=== PATIENT | female | born 1955 | race Caucasian/White ===

== ENCOUNTER 2016-04-01 10:46 | Inpatient (IN) | payer OTHER ==
[~2016-04-01] VITALS: Ht 157.5 cm; Wt 80.0 kg
[~2016-04-01 10:46] MED LIST: DOCU100C31 PO; FOLI1TAB7 PO; METH2.5T PO; MOME220A3 INH; MORP30TA23 PO; MUPIOIN4 NAE; OXYC-106 PO; PANT40TA PO; PRED-301 PO; VENL150T33 PO; VENL75CA PO
--- NOTE | 2016-04-01 11:16 | EMERGENCY ROOM VISIT NOTE ---
History Report prepared by Dixon: Gail Carey Under the Supervision of: Dr. Timur Agustin M.D. First contact with patient: 11:01 Chief Complaint: CHEST PAIN Stated Complaint: BREAST PAIN History of Present Illness The patient is a 60 year old female who presents to the Emergency Room with complaints of intermittent left sided chest pain that began two days ago. She currently rates her discomfort as an 8/10 in severity. The patient states that she notices increased pain with deep breathing. She notes an intermittent cough and states that her pain radiates to her back. The patient denies any fever, chills, shortness of breath, nausea, vomiting, abdominal pain, or pain or swelling to her legs. She denies any recent injury or fall. The patient states that she has a history of rheumatoid arthritis and states that she recently had two knee surgeries. She states that due to complications she had a babita and spacer placed in her right knee at the beginning of February. The patient denies any personal or family history of blood clots. She denies any history of heart problems or diabetes. The patient notes a history of shingles several years ago. She states that she quit smoking 27 years ago. The patient notes that she currently is taking Vancomycin in her PICC line. She additionally notes a rash. Source of History: patient Onset: two days ago Position: chest (left) Symptom Intensity: 8/10 Timing: intermittent Modifying Factors (Worsening): breathing Associated Symptoms: + cough, + rash, No SOB, No abdominal pain, No chills, No fevers, No nausea, No vomiting Review of Systems See HPI for pertinent positives & negatives. A total of 10 systems reviewed and were otherwise negative. 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 Nurse's notes were reviewed and I agree with. Family History FH: cancer SISTER (ovarian [place] age 49) Heart disease FATHER ( [place] age 67) Social History Smoking Status: Former Smoker Drug Use: none Marital Status: Housing Status: lives with family Occupation Status: disabled Current/Historical Medications Scheduled Amoxicillin & Pot Clavulanate (Augmentin 875-125 mg), 1 TAB PO BID Aspirin (Aspirin Ec), 81 MG PO DAILY Folic Acid (Folvite), 1 MG PO DAILY Gabapentin (Gabapentin), 200 MG PO BID Mometasone Furoate (Asmanex 14 Metered Doses), 2 PUFF INH BID Morphine Sulfate (Ms Contin), 15 MG PO Q12 Multivitamin (Multivitamin), 1 TAB PO DAILY Pantoprazole (Protonix), 40 MG PO DAILY Polyethylene Glycol 3350 (Miralax), 17 GM PO DAILY Potassium Chloride (Klor-Con M20), 20 MEQ PO DAILY Prednisone (Prednisone), 5 MG PO DIRECTED Venlafaxine Hcl (Venlafaxine Hcl Er), 150 MG PO QAM Venlafaxine Hcl (Effexor Xr), 1 CAP PO QAM Scheduled PRN Acetaminophen (Tylenol), 650 MG PO Q6 PRN for Pain Hydroxyzine HCl (Hydroxyzine HCl), 10 MG PO QID PRN for Itching Oxycodone Ir (Roxicodone Ir), 5 MG PO Q4H PRN for Severe Pain Oxycodone/Acetaminophen 10MG/325MG (Percocet 10MG/325MG), 1 TAB PO BID PRN for Pain Allergies Coded Allergies: Sulfa Antibiotics (Verified Allergy, Intermediate, USED CELEBREX IN PAST, 04/01/16) Adhesives (Verified Allergy, Mild, RASH, 04/01/16) Daptomycin (Verified Allergy, Unknown, RASH, 04/01/16) Heparin (Verified Allergy, Unknown, RASH, 04/01/16) PT VERBALIZED Note: Heparin platelet antibody (+) from 08/08/14 thought the reflex SHAISTA was (-) from 08/08/14. aj Physical Exam Vital Signs Date Time Temp Pulse Resp B/P Pulse Ox O2 Delivery O2 Flow Rate FiO2 04/01/16 13:44 103 04/01/16 13:34 105 24 132/75 99 04/01/16 12:46 97 20 98 04/01/16 12:43 104/75 04/01/16 12:31 99 22 98 04/01/16 12:28 126/88 04/01/16 12:16 102 24 98 04/01/16 12:13 129/77 04/01/16 12:01 102 23 96 04/01/16 11:58 115/74 04/01/16 11:46 105 24 97 04/01/16 11:43 107/63 04/01/16 11:41 115/67 04/01/16 11:31 109 22 04/01/16 11:16 111 13 04/01/16 11:10 94 Room Air 04/01/16 11:06 36.6 112 20 107/75 94 Room Air 04/01/16 11:01 94 Room Air 04/01/16 11:01 112 19 94 04/01/16 10:59 111 04/01/16 10:55 107/75 Physical Exam General: Well developed well nourished, non-ill appearing, talkative middle aged female in no acute distress, breathing comfortably on room air. Normal speech HEENT: Normal cephalic atraumatic. Pupils are equal round and reactive to light. Extraocular movements are intact. Oropharynx is pink with moist mucous membranes. No swelling of the mouth lips or tongue. Neck: Supple with a midline trachea. No meningeal signs or stiffness, no JVD or bruits. No Stridor. Chest: Clear to auscultation bilaterally. No wheezes or rhonchi. No increased work of breathing. Heart: regular rate and rhythm. Abdomen: Soft nontender, nondistended without rebound guarding or rigidity. Extremities: Right leg is in an immobilizer, no distal swelling. No cyanosis clubbing or edema. No calf tenderness or assymetry Spine/Back. Non tender to palpation. No CVA tenderness Skin: Scabs to the anterior chest and healed lesion on posterior chest, possibly consistent with shingles. Good turgor. Neurologic exam: Cranial nerves two through 12 are intact. Motor and sensation are intact and symmetrical throughout. Medical Decision & Procedures ER Provider Diagnostic Interpretation: X ray results as stated below per my interpretation and radiologist interpretation. Other radiology results as stated below per my review and radiologist interpretation: CHEST ONE VIEW PORTABLE CLINICAL HISTORY: Chest pain. COMPARISON STUDY: Chest radiograph June 28, 2015. FINDINGS: A right PICC is in place. Lung volumes are diminished. There is no pneumothorax or pleural effusion. Cardiomediastinal silhouette is stable. Asymmetric airspace opacities and interstitial thickening within the right lung are noted. There is mild left basilar opacity. Right lung aeration has markedly improved since exam of June 28, 2015. IMPRESSION: 1. Scattered right lung airspace opacities and left basilar opacity. The findings could reflect pneumonia or atelectasis. Radiographic follow-up is recommended. 2. Diminished lung volumes. Electronically signed by: Saravanan Ny M.D. 04/01/2016 12:03 PM Dictated Date/Time: 04/01/2016 12:01 PM CHEST CTA for PULMONARY ARTERIES CT DOSE: 265.53 mGy.cm HISTORY: Atypical chest pain. TECHNIQUE: Multiaxial CT images of the chest were performed following the intravenous administration of contrast to evaluate the pulmonary arteries. Maximal intensity projection images were also obtained. COMPARISON STUDY: Chest CTA 06/26/2015. FINDINGS: Normal caliber thoracic aorta with no evidence for dissection. The heart is normal in size. Trace left pleural effusion. No filling defects within the pulmonary arteries to suggest pulmonary embolus. Slightly nodular contour to the liver surface suggestive of cirrhosis. Marked splenomegaly, unchanged. Multiple borderline enlarged mediastinal and right hilar lymph nodes. These have improved in the interval. Mildly enlarged anterior diaphragmatic lymph nodes are not significant changed. Stable subcentimeter axillary lymph nodes. Old right-sided rib fractures. No pneumothorax. A few irregular patchy and nodular airspace opacities within the right upper lobe and peripheral base of the right lower lobe. There is also focal consolidation within the lingula with associated air bronchogram. A few additional smaller nodular airspace opacity within the medial aspect of the lingula. The central airways are patent. Mild bronchiectasis. IMPRESSION: 1. No evidence for pulmonary embolus. 2. Scattered irregular and nodular airspace opacities seen within the right upper lobe, right lower lobe, and lingula. This favors a multifocal pneumonia. One to 2 month chest x-ray follow up is recommended to ensure resolution. 3. Trace left pleural effusion. 4. Mild bronchiectasis. 5. Severe splenomegaly, unchanged. 6. Mildly enlarged anterior diaphragmatic lymph nodes are stable. Borderline enlarged mediastinal and right hilar lymph nodes are slightly improved. Electronically signed by: Satinder Fishman M.D. 04/01/2016 2:01 PM Dictated Date/Time: 04/01/2016 1:39 PM Laboratory Results 04/01/16 11:30 Red Blood Count 4.13, Mean Corpuscular Volume 83.3, Mean Corpuscular Hemoglobin 25.7, Mean Corpuscular Hemoglobin Concent 30.8, Mean Platelet Volume 10.2, Neutrophils (%) (Auto) 70.6, Lymphocytes (%) (Auto) 15.2, Monocytes (%) (Auto) 13.0, Eosinophils (%) (Auto) 0.6, Basophils (%) (Auto) 0.2, Neutrophils # (Auto ) 3.26, Lymphocytes # (Auto) 0.70, Monocytes # (Auto) 0.60, Eosinophils # (Auto ) 0.03, Basophils # (Auto) 0.01 04/01/16 11:30 Test 04/01/16 11:30 04/01/16 11:46 White Blood Count 4.62 K/uL (4.8-10.8) Red Blood Count 4.13 M/uL (4.2-5.4) Hemoglobin 10.6 g/dL (12.0-16.0) Hematocrit 34.4 % (37-47) Mean Corpuscular Volume 83.3 fL (80-100) Mean Corpuscular Hemoglobin 25.7 pg (25-34) Mean Corpuscular Hemoglobin Concent 30.8 g/dl (32-36) Platelet Count 93 K/uL (130-400) Mean Platelet Volume 10.2 fL (7.4-10.4) Neutrophils (%) (Auto) 70.6 % Lymphocytes (%) (Auto) 15.2 % Monocytes (%) (Auto) 13.0 % Eosinophils (%) (Auto) 0.6 % Basophils (%) (Auto) 0.2 % Neutrophils # (Auto) 3.26 K/uL (1.4-6.5) Lymphocytes # (Auto) 0.70 K/uL (1.2-3.4) Monocytes # (Auto) 0.60 K/uL (0.11-0.59) Eosinophils # (Auto) 0.03 K/uL (0-0.5) Basophils # (Auto) 0.01 K/uL (0-0.2) RDW Standard Deviation 54.5 fL (36.4-46.3) RDW Coefficient of Variation 17.8 % (11.5-14.5) Immature Granulocyte % (Auto) 0.4 % Immature Granulocyte # (Auto) 0.02 K/uL (0.00-0.02) Prothrombin Time 12.5 SECONDS (9.0-12.0) Prothromb Time International Ratio 1.2 (0.9-1.1) Activated Partial Thromboplast Time 31.1 SECONDS (21.0-31.0) Partial Thromboplastin Ratio 1.2 Anion Gap 9.0 mmol/L (3-11) Est Creatinine Clear Calc Drug Dose 67.2 ml/min Estimated GFR () 85.1 Estimated GFR (Non- 73.4 BUN/Creatinine Ratio 17.7 (10-20) Calcium Level 8.1 mg/dl (8.5-10.1) Total Bilirubin 0.6 mg/dl (0.2-1) Direct Bilirubin 0.2 mg/dl (0-0.2) Aspartate Amino Transf (AST/SGOT) 17 U/L (15-37) Alanine Aminotransferase (ALT/SGPT) 22 U/L (12-78) Alkaline Phosphatase 147 U/L (45-117) Total Creatine Kinase 33 U/L (26-192) Creatine Kinase MB 0.6 ng/ml (0.5-3.6) Creatine Kinase MB Ratio 1.8 (0-3.0) Total Protein 7.7 gm/dl (6.4-8.2) Albumin 2.8 gm/dl (3.4-5.0) Lipase 176 U/L (73-393) Bedside D-Dimer > 450 ng/mlFEU (0-450) Bedside Troponin I 0.000 ng/ml (0-0.045) BR-Niz-C-Type Natriuretic Peptide 234 pg/ml (0-900) Laboratory studies as stated above per my review. ECG Indication: chest pain Rate (beats per minute): 107 Rhythm: sinus tachycardia Findings: no acute ischemic change, no ectopy Comparison ECG Date: 06/26/15 Change: no significant change ED Course 1103: Past medical records reviewed. The patient was evaluated in room C11B, and a complete history and physical examination were performed. 1238: I reevaluated the patient and she is resting comfortably. I informed her that she needs to have a CT scan. She agreed to it. 1416: I reevaluated the patient and she is resting comfortably on nasal cannula oxygen. I discussed the exam findings with her and I discussed the treatment plan. She verbalized complete understanding and agreement. She will be evaluated for further treatment. 1429: I discussed the patients case with Rubén Duarte. He is going to evaluate the patient for further treatment. 1435: Ordered Levofloxacin 750 mg IV. Medical Decision Differentials include, but are not limited to; acute coronary syndrome, arrhythmia, PE, pneumonia, pneumothorax, CHF, shingles. This patient comes in described above. She comes in after a cough for several days as well as having chest pain more so on her left side. She has been picking at her chest and has a few scabs anteriorly which could be shingles. Posteriorly, she has healed area. She has had shingles there before. She denies any fever but has a mild temperature up to 99. She tells me that her oxygen saturation was low at 92 and the snf and was placed on oxygen. She has an immobilized left lower extremity which is is healing with an antibiotic spacer after having an infection postop. She's been on IV vancomycin and a PICC line in the right arm. She does have underlying rheumatoid arthritis as well. IV access established with established and IV in her left arm blood cultures were obtained as well as multiple blood testing. EKG does not suggest acute coronary syndrome or arrhythmia. Chest x-rays shows up possible patchy infiltrates. D-dimer was elevated. She's had no significant electrode or metabolic abnormalities. I did a chest CT to rule out PE. She has no evidence of PE, she does have some patchy infiltrates and several lobes possible pneumonia in light of this I do think needs IV antibiotics for possible pneumonia. She is given Levaquin 750 mg IV. Axel our ED Pharmacist, has checked and she did receive vancomycin and a trough level was high severity she does not need further flank today. Dr. Aguilar was consulted and see the patient ER for further treatment and evaluation. Consults Time Called: 1415 Consulting Physician: Rubén Duarte Returned Call: 1420 I discussed the patients case with Rubén Duarte. He is going to evaluate the patient for further treatment. Impression Primary Impression: Left sided chest pain Additional Impression: Multifocal pneumonia Scribe Attestation The scribe's documentation has been prepared under my direction and personally reviewed by me in its entirety. I confirm that the note above accurately reflects all work, treatment, procedures, and medical decision making performed by me. Departure Information Dispostion Being Evaluated By Hospitalist Ramesh Del Cid M.D. (PCP) Problem Qualifiers
[2016-04-01] MEDS ORDERED: POLY335019 PO (11:21)
[2016-04-01] MEDS ORDERED: MCRK20 PO (11:30)
[2016-04-01] MEDS ORDERED: NRN100 PO (11:30)
[2016-04-01] MEDS ORDERED: ATR10 PO (11:30)
[2016-04-01] MEDS ORDERED: ASPI81TA28 PO (11:30)
[2016-04-01] MEDS ORDERED: ACET-1311 PO (11:30)
[2016-04-01] MEDS ORDERED: OXYC1TAB3 PO (11:30)
[2016-04-01] MEDS ORDERED: MULT-506 PO (11:30)
[2016-04-01] MEDS ORDERED: AMOX875T PO (11:30)
--- NOTE | 2016-04-01 12:04 | DIAGNOSTIC IMAGING REPORT ---
CHEST ONE VIEW PORTABLE CLINICAL HISTORY: Chest pain. COMPARISON STUDY: Chest radiograph June 28, 2015. FINDINGS: A right PICC is in place. Lung volumes are diminished. There is no pneumothorax or pleural effusion. Cardiomediastinal silhouette is stable. Asymmetric airspace opacities and interstitial thickening within the right lung are noted. There is mild left basilar opacity. Right lung aeration has markedly improved since exam of June 28, 2015. IMPRESSION: 1. Scattered right lung airspace opacities and left basilar opacity. The findings could reflect pneumonia or atelectasis. Radiographic follow-up is recommended. 2. Diminished lung volumes. Electronically signed by: Saravanan Ny M.D. 04/01/2016 12:03 PM Dictated Date/Time: 04/01/2016 12:01 PM
[2016-04-01 12:06] LABS: POINT OF CARE PRO-BNP 234 pg/ml (0-900)
[2016-04-01 12:20] LABS: INR 1.2 (0.9-1.1); PARTIAL THROMBOPLASTIN RATIO 1.2; PROTHROMBIN TIME (PATIENT) 12.5 SECONDS (9.0-12.0)
[2016-04-01 12:25] LABS: BUN/CREATININE RATIO 17.7 (10-20); CALCIUM 8.1 mg/dl (8.5-10.1); CREATININE 0.85 mg/dl (0.60-1.20)
[2016-04-01 12:31] LABS: CKMB/CK RATIO 1.8 (0-3.0)
[2016-04-01 12:40] LABS: BASO % 0.2 %; BASO ABS # 0.01 K/uL (0-0.2); COMPLETE YES; EOS % 0.6 %; HEMATOCRIT 34.4 % (37-47); IG% 0.4 %; LYMPH % 15.2 %; MEAN CELL VOLUME 83.3 fL (80-100); MEAN CORPUSCULAR HEMOGLOBIN 25.7 pg (25-34); MEAN CORPUSCULAR HGB CONC 30.8 g/dl (32-36); MEAN PLATELET VOLUME 10.2 fL (7.4-10.4); NEUT % 70.6 %; PLATELET COUNT 93 K/uL (130-400); RED BLOOD COUNT 4.13 M/uL (4.2-5.4); WHITE BLOOD COUNT 4.62 K/uL (4.8-10.8)
[2016-04-01] MEDS ORDERED: OPTIRAY 320 IV PRN (12:45)
--- NOTE | 2016-04-01 14:02 | DIAGNOSTIC IMAGING REPORT ---
CHEST CTA for PULMONARY ARTERIES CT DOSE: 265.53 mGy.cm HISTORY: Atypical chest pain. TECHNIQUE: Multiaxial CT images of the chest were performed following the intravenous administration of contrast to evaluate the pulmonary arteries. Maximal intensity projection images were also obtained. COMPARISON STUDY: Chest CTA 06/26/2015. FINDINGS: Normal caliber thoracic aorta with no evidence for dissection. The heart is normal in size. Trace left pleural effusion. No filling defects within the pulmonary arteries to suggest pulmonary embolus. Slightly nodular contour to the liver surface suggestive of cirrhosis. Marked splenomegaly, unchanged. Multiple borderline enlarged mediastinal and right hilar lymph nodes. These have improved in the interval. Mildly enlarged anterior diaphragmatic lymph nodes are not significant changed. Stable subcentimeter axillary lymph nodes. Old right-sided rib fractures. No pneumothorax. A few irregular patchy and nodular airspace opacities within the right upper lobe and peripheral base of the right lower lobe. There is also focal consolidation within the lingula with associated air bronchogram. A few additional smaller nodular airspace opacity within the medial aspect of the lingula. The central airways are patent. Mild bronchiectasis. IMPRESSION: 1. No evidence for pulmonary embolus. 2. Scattered irregular and nodular airspace opacities seen within the right upper lobe, right lower lobe, and lingula. This favors a multifocal pneumonia. One to 2 month chest x-ray follow up is recommended to ensure resolution. 3. Trace left pleural effusion. 4. Mild bronchiectasis. 5. Severe splenomegaly, unchanged. 6. Mildly enlarged anterior diaphragmatic lymph nodes are stable. Borderline enlarged mediastinal and right hilar lymph nodes are slightly improved. Electronically signed by: Satinder Fishman M.D. 04/01/2016 2:01 PM Dictated Date/Time: 04/01/2016 1:39 PM
[2016-04-01] MEDS ORDERED: LEVAQUIN 750MG / 150ML D5W IV STA (14:35)
[2016-04-01] MEDS ORDERED: ACETAMINOPHEN 325 MG TAB PO PRN (16:45)
[2016-04-01] MEDS ORDERED: ONDANSETRON INJ 2 MG/ML 2 ML VIAL IV PRN (16:45)
[2016-04-01] MEDS ORDERED: GUAIFENESIN SUGAR FREE 100 MG/5 ML UDC PO PRN (17:00)
[2016-04-01] MEDS ORDERED: hydrOXYzine HCL 10 MG TAB PO PRN (17:00)
[2016-04-01] MEDS ORDERED: OXYCODONE HCL IR 5 MG TAB (IMMEDIATE RELEASE) PO PRN (17:00)
[2016-04-01] MEDS ORDERED: PRVHFAIN INH (17:12)
--- NOTE | 2016-04-01 17:13 | History and Physical ---
History & Physical Date & Time of Service: Apr 01, 2016 at 16:57 Chief Complaint: Breast Pain Primary Care Physician: Ramesh Aburto M.D. History of Present Illness Source: patient, clinic records, hospital records, correction Patient seen and examined. 60 year old female with PMHx of Asthma, HIT, GERD/ Gomez's esophagus, H/O MRSA knee replacement infection currently on Vancomycin , RA on prednisone and other problems listed below presents to the ED complaining of left chest pain x 3 days. Patient reports that it started after taking coughing. She reports she has been coughing for 3-4 days with a green sputum production. She denies associated symptoms including fevers, chills, nasal congestion, SOB, nausea, vomiting, diarrhea, dysuria, calf pain and edema. Patient is currently at [facility] for rehab. She had a complicated RTKA history with MRSA infection requiring hardware removal and spacer placement. She is currently on Vancomycin and is followed by ID at [facility] [place]. Per patient the plan is to start Augmentin chronically in a few weeks. In the ED patient is mildly tachycardic, Ddimer is elevated. CTA chest is negative for PE but shows multifocal pneumonia. There is no leukocytosis. Pharmacy is consulted who suggested levaquin in addition to the patient's current vancomycin. Patient will be admitted for further workup and treatment. Past Medical/Surgical History Medical Problems: (1) Asthma Status: Chronic (2) Gomez's esophagus Status: Chronic (3) Depression Status: Chronic (4) Felty's syndrome Status: Chronic (5) History of heparin-induced thrombocytopenia Status: Chronic (6) Hx MRSA infection Status: Chronic (7) Rheumatoid arthritis Status: Chronic (8) Venous insufficiency Status: Chronic Surgical Problems: (1) H/O esophagogastroduodenoscopy Permanent Comment: 08/27/2009 mild schatzki's ring, dilated, small hiatal hernia , mild nodularity of mucosa in distal esophagus Status: Chronic (2) Hx of breast biopsy Status: Chronic (3) Hx of total knee replacement Status: Chronic (4) S/P appendectomy Status: Chronic (5) S/p thorascopic sugery Permanent Comment: Right video assisted thorascopic surgery, evacuation of empyema with decortication Status: Chronic (6) Sp placement antibiotic spacer in knee Status: Chronic Family History FH: cancer SISTER (ovarian [place] age 49) Heart disease FATHER ( [place] age 67) Social History Smoking Status: Former Smoker Alcohol Use: none Drug Use: none Marital Status: Housing status: correction Occupational Status: disabled Immunizations History of Influenza Vaccine: No History of Tetanus Vaccine?: Unknown History of Pneumococcal: Yes Pneumococcal Date: Nov 20, 2009 History of Hepatitis B Vaccine: No Multi-Drug Resistant Organisms History of MDRO: Yes Type of MDRO: MRSA Allergies Coded Allergies: Sulfa Antibiotics (Verified Allergy, Intermediate, USED CELEBREX IN PAST, 04/01/16) Adhesives (Verified Allergy, Mild, RASH, 04/01/16) Daptomycin (Verified Allergy, Unknown, RASH, 04/01/16) Heparin (Verified Allergy, Unknown, RASH, 04/01/16) PT VERBALIZED Note: Heparin platelet antibody (+) from 08/08/14 thought the reflex SHAISTA was (-) from 08/08/14. aj Home Medications Scheduled Amoxicillin & Pot Clavulanate (Augmentin 875-125 mg), 1 TAB PO BID Aspirin (Aspirin Ec), 81 MG PO DAILY Folic Acid (Folvite), 1 MG PO DAILY Gabapentin (Gabapentin), 200 MG PO BID Morphine Sulfate (Ms Contin), 15 MG PO Q12 Multivitamin (Multivitamin), 1 TAB PO DAILY Pantoprazole (Protonix), 40 MG PO DAILY Polyethylene Glycol 3350 (Miralax), 17 GM PO DAILY Potassium Chloride (Klor-Con M20), 20 MEQ PO DAILY Prednisone (Prednisone), 5 MG PO DIRECTED Venlafaxine Hcl (Venlafaxine Hcl Er), 150 MG PO QAM Venlafaxine Hcl (Effexor Xr), 1 CAP PO QAM Scheduled PRN Acetaminophen (Tylenol), 650 MG PO Q6 PRN for Pain Albuterol (Ventolin Hfa), 2 PUFFS INH Q4H PRN for SOB/Wheezing Hydroxyzine HCl (Hydroxyzine HCl), 10 MG PO QID PRN for Itching Oxycodone Ir (Roxicodone Ir), 5 MG PO Q4H PRN for Severe Pain Review of Systems See above for pertinent positives & negatives. A total of 10 systems reviewed and were otherwise negative. Physical Exam Vital Signs Date Time Temp Pulse Resp B/P Pulse Ox O2 Delivery O2 Flow Rate FiO2 04/01/16 15:36 99 30 97 2/17/17 15:28 123/83 04/01/16 15:21 99 23 97 04/01/16 15:18 111/85 04/01/16 15:06 100 24 98 04/01/16 14:51 99 24 98 04/01/16 14:43 91/70 04/01/16 14:36 99 23 98 04/01/16 14:31 112/60 04/01/16 14:28 112/60 04/01/16 14:21 98 22 04/01/16 14:13 115/75 04/01/16 14:06 104 16 04/01/16 13:58 110/69 04/01/16 13:51 105 26 98 04/01/16 13:44 103 04/01/16 13:43 116/73 04/01/16 13:36 104 25 98 04/01/16 13:34 105 24 132/75 99 04/01/16 13:34 132/75 04/01/16 12:51 98 21 98 04/01/16 12:46 97 20 98 04/01/16 12:43 104/75 04/01/16 12:31 99 22 98 04/01/16 12:28 126/88 04/01/16 12:16 102 24 98 04/01/16 12:13 129/77 04/01/16 12:01 102 23 96 04/01/16 11:58 115/74 04/01/16 11:46 105 24 97 04/01/16 11:43 107/63 04/01/16 11:41 115/67 04/01/16 11:31 109 22 04/01/16 11:16 111 13 04/01/16 11:10 94 Room Air 04/01/16 11:06 36.6 112 20 107/75 94 Room Air 04/01/16 11:01 94 Room Air 04/01/16 11:01 112 19 94 04/01/16 10:59 111 04/01/16 10:55 107/75 General Appearance: + pertinent finding (Pleasant WD/WN 60 year old female lying in bed in NAD ) Head: normocephalic, atraumatic Eyes: PERRL, EOMI, sclerae normal ENT: hearing grossly normal, pharynx normal Neck: supple, no JVD Respiratory/Chest: no respiratory distress, no accessory muscle use, + crackles (diffuse ), + pertinent finding (tenderness to palpation left chest) Cardiovascular: regular rate, rhythm, no edema, no gallop, no JVD, no murmur, normal peripheral pulses Abdomen/GI: normal bowel sounds, non tender, soft Back: normal inspection, no muscle spasm Extremities/Musculoskelatal: no calf tenderness, normal capillary refill, no pedal edema, + pertinent finding (brace intact to right leg, rheumatological changes noted to hands ) Neurologic/Psych: alert, oriented x 3, + pertinent finding (no focal deficits on gross exam ) Skin: normal color, warm/dry, no rash Lymphatic: no adenopathy Diagnostics Laboratory Results Results Past 24 Hours Test 04/01/16 11:14 04/01/16 11:30 04/01/16 11:46 Range/Units Creatine Kinase MB Ratio 1.8 0-3.0 White Blood Count 4.62 4.8-10.8 K/uL Red Blood Count 4.13 4.2-5.4 M/uL Hemoglobin 10.6 12.0-16.0 g/dL Hematocrit 34.4 37-47 % Mean Corpuscular Volume 83.3 80-100 fL Mean Corpuscular Hemoglobin 25.7 25-34 pg Mean Corpuscular Hemoglobin Concent 30.8 32-36 g/dl Platelet Count 93 130-400 K/uL Mean Platelet Volume 10.2 7.4-10.4 fL Neutrophils (%) (Auto) 70.6 % Lymphocytes (%) (Auto) 15.2 % Monocytes (%) (Auto) 13.0 % Eosinophils (%) (Auto) 0.6 % Basophils (%) (Auto) 0.2 % Neutrophils # (Auto) 3.26 1.4-6.5 K/uL Lymphocytes # (Auto) 0.70 1.2-3.4 K/uL Monocytes # (Auto) 0.60 0.11-0.59 K/uL Eosinophils # (Auto) 0.03 0-0.5 K/uL Basophils # (Auto) 0.01 0-0.2 K/uL RDW Standard Deviation 54.5 36.4-46.3 fL RDW Coefficient of Variation 17.8 11.5-14.5 % Immature Granulocyte % (Auto) 0.4 % Immature Granulocyte # (Auto) 0.02 0.00-0.02 K/uL Prothrombin Time 12.5 9.0-12.0 SECONDS Prothromb Time International Ratio 1.2 0.9-1.1 Activated Partial Thromboplast Time 31.1 21.0-31.0 SECONDS Partial Thromboplastin Ratio 1.2 Sodium Level 138 136-145 mmol/L Potassium Level 4.0 3.5-5.1 mmol/L Chloride Level 104 98-107 mmol/L Carbon Dioxide Level 25 21-32 mmol/L Anion Gap 9.0 3-11 mmol/L Blood Urea Nitrogen 15 7-18 mg/dl Creatinine 0.85 0.60-1.20 mg/dl Est Creatinine Clear Calc Drug Dose 67.2 ml/min Estimated GFR () 85.1 Estimated GFR (Non- 73.4 BUN/Creatinine Ratio 17.7 10-20 Random Glucose 120 70-99 mg/dl Calcium Level 8.1 8.5-10.1 mg/dl Total Bilirubin 0.6 0.2-1 mg/dl Direct Bilirubin 0.2 0-0.2 mg/dl Aspartate Amino Transf (AST/SGOT) 17 15-37 U/L Alanine Aminotransferase (ALT/SGPT) 22 12-78 U/L Alkaline Phosphatase 147 45-117 U/L Total Creatine Kinase 33 26-192 U/L Creatine Kinase MB 0.6 0.5-3.6 ng/ml Total Protein 7.7 6.4-8.2 gm/dl Albumin 2.8 3.4-5.0 gm/dl Lipase 176 73-393 U/L Bedside D-Dimer > 450 0-450 ng/mlFEU Bedside Troponin I 0.000 0-0.045 ng/ml WW-Hye-R-Type Natriuretic Peptide 234 0-900 pg/ml Microbiology Results 04/01/16 Blood Culture, Received Pending 04/01/16 Blood Culture, Received Pending Diagnostic Radiology CTA CHEST Per radiologist read; IMPRESSION: 1. No evidence for pulmonary embolus. 2. Scattered irregular and nodular airspace opacities seen within the right upper lobe, right lower lobe, and lingula. This favors a multifocal pneumonia. One to 2 month chest x-ray follow up is recommended to ensure resolution. 3. Trace left pleural effusion. 4. Mild bronchiectasis. 5. Severe splenomegaly, unchanged. 6. Mildly enlarged anterior diaphragmatic lymph nodes are stable. Borderline enlarged mediastinal and right hilar lymph nodes are slightly improved. CXR Per radiologist read: IMPRESSION: 1. Scattered right lung airspace opacities and left basilar opacity. The findings could reflect pneumonia or atelectasis. Radiographic follow-up is recommended. 2. Diminished lung volumes. EKG Sinus Tachycardia 107,BPM QTc 440 Impression Assessment and Plan 60 year old female from [facility] presents with productive cough, pleuritic chest pain [facility] PNEUMONIA -Admit to med/surg -CTA chest shows multifocal pneumonia, no PE -no leukocytosis, afebrile. BP stable -empirically treat with vancomycin and Levaquin -blood cultures, sputum culture pending -Check PCR flu -prn cough syrup -oxygen prn -CBC, PRP, Mg daily ELEVATED DDIMER -CTA chest negative for PE -high risk for VTE -check BLLE doppler US H/O RIGHT KNEE REPLACEMENT INFECTION, H/O MRSA -continue Vancomycin- pharmacy consulted for dosing -Contact precautions -continue [facility] pain regimen/bowel regimen -Per patient plan is to start Augmentin in a few weeks (already listed on Med Reconciliation) RHEUMATOID ARTHRITIS/FELTY'S SYNDROME -continue Prednisone, folic acid -no indication to stress dose at this time GERD/BAHMAN'S ESOPHAGUS -continue PPI DEPRESSION -continue Effexor PANCYTOPENIA -follow CBC daily ASTHMA -continue home inhaler DVT PROPHYLAXIS: continue Aspirin 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 Is high risk for VTE d/t immobilization and increased risk with RA. Defer anticoagulation to attending CODE STATUS: FULL CODE DISPO:In my clinical judgment this beneficiary meets acute admission criteria, established by [facility], that includes being hospitalized through two midnights. Discharge planning eval placed Patient seen in collaboration with Dr. Aguilar VTE Prophylaxis VTE Risk Assessment Done? Y/N: Yes Risk Level: High Given or contraindicated: Other Anticoagulation (aspirin) Note ATTENDING ADDENDUM Record reviewed. Patient interviewed and examined. Care coordinated with Arlin Cornejo PA-C. Please refer to her documentation for patient's history. Briefly, 60 YO F with Hx steroid dependent RA, MRSA, septic arthritis. Recent revision right TKA. Receiving IV vanco and PT / OT at [facility]. Presented to ED with cough and SOB. EXAM: General- no acute distress VS- as noted HEENT- [] Neck- no JVD Lungs- scattered rhonchi Heart- RRR Abdomen- + BS, soft, nontender Extremities- RLE wrapped with NICOLE bandages; knee immobilizer applied Neuro- alert DATA: WBC 4620. Influenza A/B PCR negative. Lab studies as noted. CXR- scattered densities. CT chest- negative for pulmonary embolism; scattered opacities RUL, RLL, lingula consistent with pneumonia. ASSESSMENT AND PLAN: Healthcare acquired pneumonia. Check blood cultures and sputum culture. Already on IV vancomycin for MRSA septic arthritis. Add levofloxacin. Continue chronic prednisone for RA. History of HIT, so no heparin or enoxaparin. Can't use SCD on RLE due to immobilizer. Continue aspirin. Please refer to ARELY Cornejo's documentation for discussion of other issues. Kameron Aguilar MD .
[2016-04-01] MEDS ORDERED: ALBUTEROL HFA 8 GM INHALER INH PRN (17:15)
[2016-04-01] MEDS ORDERED: VANCOMYCIN CONSULT ACTIVE PRN (17:37)
[2016-04-01 17:39] VITALS: BP 100/68; PULSE 102; TEMP 37.1; O2SAT 95
[2016-04-01 19:02] VITALS: BP 100/68; PULSE 102; TEMP 37.1; O2SAT 95; Ht 157.5 cm; Wt 80.0 kg
[2016-04-01 20:32] LABS: INFLUENZA A PCR Neg for Influ A (NEG); INFLUENZA B PCR Neg for Influ B (NEG)
--- NOTE | 2016-04-01 21:09 | Pharmacy Progress Note ---
Pharmacy Antibiotic Consult Date of Service: Apr 01, 2016. Pharmacy Dosing Scope Pharmacy is consulted to initiate Vancomycin IV dosing therapy, order appropriate labs and adjust drug dose/frequency. Subjective The patient is a 60 year old female admitted on Apr 01, 2016 at 16:42 for pneumonia. Objective Height (Feet): 5 Height (Inches): 2.00 Weight (Kilograms): 80.000 Lab Results (24hrs): Laboratory Tests Test 04/01/16 11:30 BUN/Creatinine Ratio 17.7 Blood Urea Nitrogen 15 mg/dl Creatinine 0.85 mg/dl White Blood Count 4.62 K/uL Red Blood Count 4.13 M/uL Hemoglobin 10.6 g/dL Hematocrit 34.4 % Mean Corpuscular Volume 83.3 fL Mean Corpuscular Hemoglobin 25.7 pg Mean Corpuscular Hemoglobin Concent 30.8 g/dl Platelet Count 93 K/uL Mean Platelet Volume 10.2 fL Neutrophils (%) (Auto) 70.6 % Lymphocytes (%) (Auto) 15.2 % Monocytes (%) (Auto) 13.0 % Eosinophils (%) (Auto) 0.6 % Basophils (%) (Auto) 0.2 % Neutrophils # (Auto) 3.26 K/uL Lymphocytes # (Auto) 0.70 K/uL Monocytes # (Auto) 0.60 K/uL Eosinophils # (Auto) 0.03 K/uL Basophils # (Auto) 0.01 K/uL Micro Results: Item Value Date Time Gram Stain Received 04/01/16 1715 Sputum Expectorated Sputum Pending Blood Culture Received 04/01/16 1515 Blood Pending Blood Culture Received 04/01/16 1500 Blood Pending Recent Pertinent Medications Item Value Date Time Levofloxacin 750 150 ml @ 100 mls/hr 04/02/16 1400 mg/Prmx Q24H/IV Assessment & Plan 60 yo F known to our kinetics service from prior admissions, admitted this evening for multifactoral pneumonia. She presents from [facility] where she has been on Vancom[place] [facility] She has a history of complicated RTKA (MRSA positive) requiring hardware removal and spacer placement. Plan for this admission is to continue Vancomycin IV dosing and initiate Levaquin IV. Blood cultures pending. Sputum pending. MRSA nasal swab not ordered as the Vancomycin will be continued indefinitely for ongoing knee infection. 1. Vancomycin * Pt has been on Vancomycin and last dose given at [facility] 03/31 (at some point during the evening). ED pharmacist reports that the trough was elevated at [facility] and the kinetics service had plans to change her to q48 hour dosing (no further details obtained) * At this point, we need to obtain Random drug levels and re-dose the patient when she falls below 20 mcg/mL. * Based on previous admissions she DOES NOT follow population kinetics. At points we have had to re-dose her every several days. * Knowing this, check random level now- Random level returned at 22.7 mcg/mL. * My plan will be to re-check her level in the AM ( I assume it will be between 15-20 mcg/mL) * Reassess dosing in the AM 2. Levaquin * 750 mg IV daily * No renal adjustment necessary at this time Pharmacy will continue to follow and will adjust dose/frequency as necessary. Thank you
[2016-04-01] MEDS: MoRPHine SULFATE CR 15 MG TAB (MS CONTIN) PO SCH (21:11)
[2016-04-01] MEDS: GABAPENTIN 100 MG CAP PO SCH (21:11)
--- NOTE | 2016-04-01 22:40 | DIAGNOSTIC IMAGING REPORT ---
BILATERAL LOWER EXTREMITY VENOUS DOPPLER HISTORY: Pain elevated ddi ludy r/o DVT COMPARISON STUDY: 12/22/2009 FINDINGS: There is normal compressibility, flow, and augmentation within the bilateral lower extremity deep venous systems. IMPRESSION: No DVT within the right or left lower extremity. Electronically signed by: Indra Aburto M.D. 04/01/2016 10:38 PM Dictated Date/Time: 04/01/2016 10:38 PM
[2016-04-01 23:25] VITALS: BP 103/68; PULSE 106; TEMP 38; O2SAT 91
[2016-04-02 02:10] VITALS: TEMP 37
[2016-04-02 04:54] LABS: MEAN CELL VOLUME 82.7 fL (80-100); MEAN CORPUSCULAR HEMOGLOBIN 25.6 pg (25-34); MEAN CORPUSCULAR HGB CONC 30.9 g/dl (32-36); RED BLOOD COUNT 3.87 M/uL (4.2-5.4); WHITE BLOOD COUNT 5.32 K/uL (4.8-10.8)
[2016-04-02 04:58] LABS: MEAN PLATELET VOLUME 10.4 fL (7.4-10.4); PLATELET COUNT 98 K/uL (130-400)
[2016-04-02 05:21] LABS: BUN/CREATININE RATIO 22.5 (10-20); CALCIUM 8.1 mg/dl (8.5-10.1); CREATININE 0.79 mg/dl (0.60-1.20); POTASSIUM 3.6 mmol/L (3.5-5.1)
[2016-04-02 07:21] VITALS: BP 101/70; PULSE 86; TEMP 37; O2SAT 93
[2016-04-02] MEDS: VENLAFAXINE HCL XR 75 MG CAPXR PO SCH (07:44)
[2016-04-02] MEDS: MULTIVITAMIN TAB PO SCH (07:45)
[2016-04-02] MEDS: POLYETHYLENE (MIRALAX) 17 GM PACK PO SCH (07:45)
[2016-04-02] MEDS: POTASSIUM CHLORIDE 20 MEQ TABCR PO SCH (07:45)
[2016-04-02] MEDS: ASPIRIN 81 MG ECTAB PO SCH (07:45)
[2016-04-02] MEDS: VENLAFAXINE HCL XR 150 MG CAPXR PO SCH (07:46)
[2016-04-02] MEDS: PANTOprazole SOD 40 MG TAB PO SCH (07:46)
[2016-04-02] MEDS: GABAPENTIN 100 MG CAP PO SCH ×2 (07:46→21:50)
[2016-04-02] MEDS: MoRPHine SULFATE CR 15 MG TAB (MS CONTIN) PO SCH ×2 (07:53→21:47)
[2016-04-02] MEDS ORDERED: VANCOMYCIN INJ 750 MG in SODIUM CHLORIDE 0.9% 250ML 250 ML IV ONE (10:00)
--- NOTE | 2016-04-02 10:35 | Pharmacy Progress Note ---
Pharmacy Antibiotic Prog Note Date of Service: Apr 02, 2016. Subjective: The patient is currently on day # 2 of inpatient Vancomycin IV therapy (was on prior to admission for complicated MRSA knee replacement). Objective: Height (Feet): 5 Height (Inches): 2.00 Weight (Kilograms): 80.000 Levels: Item Value Date Time Random Vancomycin Level 19.3 mcg/ml 04/02/16 0431 Random Vancomycin Level 22.7 mcg/ml 04/01/161999 Lab Results (24hrs): Laboratory Tests Test 04/01/16 11:30 04/02/16 04:31 BUN/Creatinine Ratio 17.7 22.5 Blood Urea Nitrogen 15 mg/dl 18 mg/dl Creatinine 0.85 mg/dl 0.79 mg/dl White Blood Count 4.62 K/uL 5.32 K/uL Red Blood Count 4.13 M/uL Hemoglobin 10.6 g/dL Hematocrit 34.4 % Mean Corpuscular Volume 83.3 fL Mean Corpuscular Hemoglobin 25.7 pg Mean Corpuscular Hemoglobin Concent 30.8 g/dl Platelet Count 93 K/uL Mean Platelet Volume 10.2 fL Neutrophils (%) (Auto) 70.6 % Lymphocytes (%) (Auto) 15.2 % Monocytes (%) (Auto) 13.0 % Eosinophils (%) (Auto) 0.6 % Basophils (%) (Auto) 0.2 % Neutrophils # (Auto) 3.26 K/uL Lymphocytes # (Auto) 0.70 K/uL Monocytes # (Auto) 0.60 K/uL Eosinophils # (Auto) 0.03 K/uL Basophils # (Auto) 0.01 K/uL Micro Results: Item Value Date Time Gram Stain - Final Resulted 04/01/16 1715 Sputum Expectorated Sputum Blood Culture Received 04/01/16 1515 Blood Pending Blood Culture Received 04/01/16 1500 Blood Pending Assessment & Plan: Assessment * 60 y/o on IV Vancomycin for MRSA knee replacement. She also has HAP for which she is being treated with Levaquin (not a consult). * Goal Vancomycin trough 15-20 mcg/mL * Patient was receiving Vancomycin at [facility] prior to admission. Last dose was apparently 1000mg IV x 1 some time during the evening of 03/31. * Random level was 22.7 on 04/01 @ 1999 and was 19.3 on 04/02 @ 0431 * Patient is due for another dose of Vancomycin. Will empirically reduce dose by ~25% since patient seems to have been supratherapeutic on 1000mg. Pharmacy has dosed Vancomycin for this patient in the past; past data reviewed. It appears it is best to base her dosing on random levels given her unpredictable pharmacokinetics. Plan * Give Vancomycin 750mg (~10mg/kg) IV x 1 * Recheck random level on 04/03 @ 0930 (~24 hours after last dose) Pharmacy will continue to follow and will adjust dose/frequency as necessary. Thank you
--- NOTE | 2016-04-02 11:48 | Progress Note ---
Medicine Progress Note Date & Time of Visit: Apr 02, 2016 at 11:43. Subjective sitting up in bedside chair, comfortable still coughing with yellow thick phlegm occasional dyspnea has pleuritic chest pain denies other symptoms Objective Last 8 Hrs Date Time Temp Pulse Resp B/P Pulse Ox O2 Delivery O2 Flow Rate FiO2 04/02/16 08:00 Room Air 04/02/16 07:21 37.0 86 20 101/70 93 Room Air Physical Exam: General- oriented x 3, not in distress, speaks in sentences with no effort Eyes- anicteric ENT- oropharynx clear Neck- supple, no JVD, no adenopathy, no thyromegaly Lungs- (+) bilateral crackles, no wheeze Heart- regular rhythm; no murmur Abdomen- normal bowel sounds, soft, nontender Extremities-right leg: (+) brace in place no pretibial edema, no calf tenderness Neuro- alert, oriented x 3; no gross focal deficits Skin- warm & dry Laboratory Results: Last 24 Hours Test 04/01/16 11:46 04/01/16 18:50 04/01/16 20:00 04/02/16 04:31 Bedside D-Dimer > 450 ng/mlFEU Bedside Troponin I 0.000 ng/ml GY-Urr-O-Type Natriuretic Peptide 234 pg/ml Influenza Type A (RT-PCR) Neg for Influ A Influenza Type B (RT-PCR) Neg for Influ B Random Vancomycin Level 22.7 mcg/ml 19.3 mcg/ml White Blood Count 5.32 K/uL Red Blood Count 3.87 M/uL Hemoglobin 9.9 g/dL Hematocrit 32.0 % Mean Corpuscular Volume 82.7 fL Mean Corpuscular Hemoglobin 25.6 pg Mean Corpuscular Hemoglobin Concent 30.9 g/dl RDW Standard Deviation 53.5 fL RDW Coefficient of Variation 17.7 % Platelet Count 98 K/uL Mean Platelet Volume 10.4 fL Sodium Level 141 mmol/L Potassium Level 3.6 mmol/L Chloride Level 105 mmol/L Carbon Dioxide Level 27 mmol/L Anion Gap 9.0 mmol/L Blood Urea Nitrogen 18 mg/dl Creatinine 0.79 mg/dl Est Creatinine Clear Calc Drug Dose 72.3 ml/min Estimated GFR () 93.0 Estimated GFR (Non- 80.2 BUN/Creatinine Ratio 22.5 Random Glucose 83 mg/dl Calcium Level 8.1 mg/dl Magnesium Level 2.0 mg/dl Date/Time Source Procedure Growth Status 04/01/16 15:15 Blood Blood Culture Pending Received 04/01/16 15:00 Blood Blood Culture Pending Received 04/01/16 17:15 Sputum Expectorated Sputum Gram Stain - Final Resulted 04/01/16 17:15 Sputum Expectorated Sputum Sputum Culture Pending Resulted Assessment & Plan 60 year old female from [facility] presents with productive cough, pleuritic chest pain [facility] PNEUMON[facility] -CTA chest shows multifocal pneumonia, no PE - had 1 fever spike last night - sputum culture: pending blood cultures: pending flu: negative - continue Levaquin on Vanco for R Knee MRSA infection - nebs q6h incentive spirometry ELEVATED DDIMER -CTA chest negative for PE - Doppler US: no DVT H/O RIGHT KNEE REPLACEMENT INFECTION, H/O MRSA -continue Vancomycin- pharmacy consulted for dosing -Contact precautions -continue [facility] pain regimen/bowel regimen -Per patient plan is to start Augmentin in a few weeks (already listed on Med Reconciliation) RHEUMATOID ARTHRITIS/FELTY'S SYNDROME -continue Prednisone, folic acid GERD/BAHMAN'S ESOPHAGUS -continue PPI DEPRESSION -continue Effexor PANCYTOPENIA stable ASTHMA nebs q6h DVT PROPHYLAXIS: continue Aspirin 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 Is high risk for VTE d/t immobilization and increased risk with RA. Defer anticoagulation to attending CODE STATUS: FULL CODE DISPO pending Current Inpatient Medications: Current Inpatient Medications Medications (Trade) Dose Ordered Sig/Poncho Route Start Time Stop Time Status Last Admin Dose Admin Ioversol (Optiray 320) 111 ml UD PRN IV 04/01/16 12:45 04/05/16 12:44 Acetaminophen (Tylenol Tab) 650 mg Q4H PRN PO 04/01/16 16:45 05/01/16 16:44 04/02/16 00:11 650 MG Ondansetron HCl (Zofran Inj) 4 mg Q6H PRN IV 04/01/16 16:45 05/01/16 16:44 Vancomycin HCl 1 ea 1 ea UD PRN N/A 04/01/16 17:37 05/01/16 17:36 Levofloxacin/Prmx (Levaquin / D5W/ Premixed D5W) 150 ml @ 100 mls/hr Q24H IV 04/02/16 14:00 04/07/16 23:59 Aspirin (Ecotrin Tab) 81 mg DAILY PO 04/02/16 09:00 05/02/16 08:59 04/02/16 07:45 81 MG Folic Acid (Folvite Tab) 1 mg DAILY PO 04/02/16 09:00 05/02/16 08:59 04/02/16 07:45 1 MG Gabapentin (Neurontin Cap) 200 mg BID PO 04/01/16 21:00 05/01/16 20:59 04/02/16 07:46 200 MG Hydroxyzine HCl (Vistaril Tab) 10 mg QID PRN PO 04/01/16 17:00 05/01/16 16:59 Multivitamins (Multivitamin Tab) 1 tab DAILY PO 04/02/16 09:00 05/02/16 08:59 04/02/16 07:45 1 TAB Oxycodone HCl (Roxicodone Immediate Rel Tab) 5 mg Q4H PRN PO 04/01/16 17:00 04/15/16 16:59 Pantoprazole Sodium (Protonix Tab) 40 mg DAILY PO 04/02/16 09:00 05/02/16 08:59 04/02/16 07:46 40 MG Potassium Chloride (Klor-Con Tab) 20 meq DAILY PO 04/02/16 09:00 05/02/16 08:59 04/02/16 07:45 20 MEQ Prednisone (PredniSONE TAB) 5 mg DAILY PO 04/02/16 09:00 05/02/16 08:59 04/02/16 07:45 5 MG Venlafaxine HCl (effeXOR EXTENDED REL CAP) 75 mg QAM PO 04/02/16 09:00 05/02/16 08:59 04/02/16 07:44 75 MG Venlafaxine HCl (effeXOR EXTENDED REL CAP) 150 mg QAM PO 04/02/16 09:00 05/02/16 08:59 04/02/16 07:46 150 MG Morphine Sulfate (Oramorph Sr Tab) 15 mg Q12 PO 04/01/16 21:00 05/01/16 20:59 04/02/16 07:53 15 MG Polyethylene (Miralax Powder Packet) 17 gm DAILY PO 04/02/16 09:00 05/02/16 08:59 04/02/16 07:45 17 GM Guaifenesin (Robitussin Sugar Free Syrup) 100 mg Q6H PRN PO 04/01/16 17:00 05/01/16 16:59 04/01/16 21:12 100 MG Albuterol 2 puffs 2 puffs Q4H PRN INH 04/01/16 17:15 05/01/16 17:14 Vancomycin HCl/ Sodium Chloride (Vancomycin Inj/ Nss 250ml) 265 ml @ 125 mls/hr TODAY@1000 ONCE IV 04/02/16 10:00 04/02/16 12:07 04/02/16 10:57 125 MLS/HR
[2016-04-02] MEDS ORDERED: LEVALBUTEROL/IPRATROPIUM NEB INH SCH (12:00)
[2016-04-02] MEDS: LEVOFLOXACIN / D5W 750 MG in PREMIXED IN D5W 150 ML IV SCH (13:26)
[2016-04-02 15:33] VITALS: BP 112/78; PULSE 99; TEMP 36.6; O2SAT 93
[2016-04-02 15:38] VITALS: PULSE 90; O2SAT 94
[2016-04-02] MEDS: LEVALBUTEROL 1.25MG/0.5ML NEB INH SCH ×2 (15:38→19:33)
[2016-04-02] MEDS: IPRATROPIUM BROMIDE NEB SOLN 0.02% 2.5 ML VIAL INH SCH ×2 (15:38→19:33)
[2016-04-02 16:05] VITALS: O2SAT 94
[2016-04-02 19:33] VITALS: PULSE 100; O2SAT 94
[2016-04-03 00:12] VITALS: BP 104/71; PULSE 100; TEMP 36.9; O2SAT 94
[2016-04-03 06:55] LABS: CREATININE 0.83 mg/dl (0.60-1.20)
[2016-04-03 07:11] VITALS: PULSE 98; O2SAT 93
[2016-04-03] MEDS: IPRATROPIUM BROMIDE NEB SOLN 0.02% 2.5 ML VIAL INH SCH ×3 (07:11→19:43)
[2016-04-03] MEDS: LEVALBUTEROL 1.25MG/0.5ML NEB INH SCH ×3 (07:11→19:43)
[2016-04-03] MEDS: MULTIVITAMIN TAB PO SCH (08:04)
[2016-04-03] MEDS: GABAPENTIN 100 MG CAP PO SCH ×2 (08:04→20:54)
[2016-04-03] MEDS: VENLAFAXINE HCL XR 150 MG CAPXR PO SCH (08:05)
[2016-04-03] MEDS: ASPIRIN 81 MG ECTAB PO SCH (08:05)
[2016-04-03] MEDS: PANTOprazole SOD 40 MG TAB PO SCH (08:05)
[2016-04-03] MEDS: POLYETHYLENE (MIRALAX) 17 GM PACK PO SCH (08:06)
[2016-04-03] MEDS: VENLAFAXINE HCL XR 75 MG CAPXR PO SCH (08:06)
[2016-04-03] MEDS: POTASSIUM CHLORIDE 20 MEQ TABCR PO SCH (08:06)
[2016-04-03] MEDS: MoRPHine SULFATE CR 15 MG TAB (MS CONTIN) PO SCH ×2 (08:07→20:53)
[2016-04-03 09:26] VITALS: BP 112/71; PULSE 98; TEMP 36.5; O2SAT 100
[2016-04-03] MEDS: LEVOFLOXACIN / D5W 750 MG in PREMIXED IN D5W 150 ML IV SCH (14:09)
[2016-04-03 16:10] VITALS: BP 126/67; PULSE 100; TEMP 36.8; O2SAT 94
[2016-04-03 16:15] VITALS: O2SAT 94
--- NOTE | 2016-04-03 16:29 | Pharmacy Progress Note ---
Pharmacy Antibiotic Prog Note Date of Service: Apr 03, 2016. Subjective: The patient is currently on day # 3 of inpatient Vancomycin IV therapy (was on prior to admission for complicated MRSA knee replacement). Objective: Height (Feet): 5 Height (Inches): 2.00 Weight (Kilograms): 80.000 Levels: Item Value Date Time Random Vancomycin Level 23.2 mcg/ml 04/03/16 0950 Lab Results (24hrs): Laboratory Tests Test 04/03/16 05:53 Creatinine 0.83 mg/dl Assessment & Plan: Assessment * 60 y/o on IV Vancomycin for MRSA knee replacement. She also has HAP for which she is being treated with Levaquin (not a consult). Due to patient's unpredictable pharmacokinetics, Vancomycin is being dosed empirically based on random levels. * She has 1 of 2 positive blood culture this admission growing G+ cocci * Goal Vancomycin "trough" 15-20 mcg/mL * Random level on 04/03 @ 0950 (~23 hours after last dose) of 23.2 mcg/mL is supratherapeutic * Patient will need another dose today so that she doesn't fall <15 mcg/mL. Will decr' dose by another 25% and also delayed next dose by ~8 hours. Plan * Give Vancomycin 500mg IV x 1 dose * Recheck random level on 04/04 @ 1400 Pharmacy will continue to follow and will adjust dose/frequency as necessary. Thank you
--- NOTE | 2016-04-03 17:14 | Progress Note ---
Medicine Progress Note Date & Time of Visit: Apr 03, 2016 at 17:12. Subjective seen sitting up in chair having dinner coughing is improving, less sputum denies chest pain no fever/chills no other symptoms Objective Last 8 Hrs Date Time Temp Pulse Resp B/P Pulse Ox O2 Delivery O2 Flow Rate FiO2 04/03/16 16:10 36.8 100 16 126/67 94 Room Air 04/03/16 09:26 36.5 98 16 112/71 100 Room Air Physical Exam: General- oriented x 3, not in distress, speaks in sentences with no effort Eyes- anicteric ENT- oropharynx clear Neck- supple, no JVD, no adenopathy, no thyromegaly Lungs- (+) bilateral crackles, no wheezing Heart- regular rhythm; no murmur Abdomen- normal bowel sounds, soft, nontender Extremities-right leg: (+) brace in place no pretibial edema, no calf tenderness Neuro- alert, oriented x 3; no gross focal deficits Skin- warm & dry Laboratory Results: Last 24 Hours Test 04/03/16 05:53 04/03/16 09:50 Creatinine 0.83 mg/dl Est Creatinine Clear Calc Drug Dose 68.9 ml/min Estimated GFR () 87.6 Estimated GFR (Non- 75.6 Random Vancomycin Level 23.2 mcg/ml Assessment & Plan 60 year old female from [facility] presents with productive cough, pleuritic chest pain [facility] P[facility]UMON[facility] -CTA chest shows multifocal pneumonia, no PE - afebrile - sputum culture: Heavy normal maciel blood cultures: 1 bottle gram positive cocci flu: negative - continue Levaquin on Vanco for R Knee MRSA infection - nebs q6h incentive spirometry ELEVATED DDIMER - CTA chest negative for PE - Doppler US: no DVT H/O RIGHT KNEE REPLACEMENT INFECTION, H/O MRSA -continue Vancomycin- pharmacy consulted for dosing -Contact precautions -continue [facility] pain regimen/bowel regimen -Per patient plan is to start Augmentin in a few weeks (already listed on Med Reconciliation) - PT/OT RHEUMATOID ARTHRITIS/FELTY'S SYNDROME -continue Prednisone, folic acid GERD/BAHMAN'S ESOPHAGUS -continue PPI DEPRESSION -continue Effexor PANCYTOPENIA stable ASTHMA nebs q6h DVT PROPHYLAXIS: continue Aspirin 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 Is high risk for VTE d/t immobilization and increased risk with RA. Defer anticoagulation to attending CODE STATUS: FULL CODE DISPO pending Current Inpatient Medications: Current Inpatient Medications Medications (Trade) Dose Ordered Sig/Poncho Route Start Time Stop Time Status Last Admin Dose Admin Ioversol (Optiray 320) 111 ml UD PRN IV 04/01/16 12:45 04/05/16 12:44 Acetaminophen (Tylenol Tab) 650 mg Q4H PRN PO 04/01/16 16:45 05/01/16 16:44 04/02/16 00:11 650 MG Ondansetron HCl (Zofran Inj) 4 mg Q6H PRN IV 04/01/16 16:45 05/01/16 16:44 Vancomycin HCl 1 ea 1 ea UD PRN N/A 04/01/16 17:37 05/01/16 17:36 Levofloxacin/Prmx (Levaquin / D5W/ Premixed D5W) 150 ml @ 100 mls/hr Q24H IV 04/02/16 14:00 04/07/16 23:59 04/03/16 14:09 100 MLS/HR Aspirin (Ecotrin Tab) 81 mg DAILY PO 04/02/16 09:00 05/02/16 08:59 04/03/16 08:05 81 MG Folic Acid (Folvite Tab) 1 mg DAILY PO 04/02/16 09:00 05/02/16 08:59 04/03/16 08:05 1 MG Gabapentin (Neurontin Cap) 200 mg BID PO 04/01/16 21:00 05/01/16 20:59 04/03/16 08:04 200 MG Hydroxyzine HCl (Vistaril Tab) 10 mg QID PRN PO 04/01/16 17:00 05/01/16 16:59 Multivitamins (Multivitamin Tab) 1 tab DAILY PO 04/02/16 09:00 05/02/16 08:59 04/03/16 08:04 1 TAB Oxycodone HCl (Roxicodone Immediate Rel Tab) 5 mg Q4H PRN PO 04/01/16 17:00 04/15/16 16:59 Pantoprazole Sodium (Protonix Tab) 40 mg DAILY PO 04/02/16 09:00 05/02/16 08:59 04/03/16 08:05 40 MG Potassium Chloride (Klor-Con Tab) 20 meq DAILY PO 04/02/16 09:00 05/02/16 08:59 04/03/16 08:06 20 MEQ Prednisone (PredniSONE TAB) 5 mg DAILY PO 04/02/16 09:00 05/02/16 08:59 04/03/16 08:04 5 MG Venlafaxine HCl (effeXOR EXTENDED REL CAP) 75 mg QAM PO 04/02/16 09:00 05/02/16 08:59 04/03/16 08:06 75 MG Venlafaxine HCl (effeXOR EXTENDED REL CAP) 150 mg QAM PO 04/02/16 09:00 05/02/16 08:59 04/03/16 08:05 150 MG Morphine Sulfate (Oramorph Sr Tab) 15 mg Q12 PO 04/01/16 21:00 05/01/16 20:59 04/03/16 08:07 15 MG Polyethylene (Miralax Powder Packet) 17 gm DAILY PO 04/02/16 09:00 05/02/16 08:59 04/02/16 07:45 17 GM Guaifenesin (Robitussin Sugar Free Syrup) 100 mg Q6H PRN PO 04/01/16 17:00 05/01/16 16:59 04/01/16 21:12 100 MG Albuterol (Ventolin Hfa Inhaler) 2 puffs Q4H PRN INH 04/01/16 17:15 05/01/16 17:14 Ipratropium [place] (Atrovent 0.02% 0.5MG/2.5ML Neb) 0.5 mg Q6RWA INH 04/02/16 15:00 05/02/16 14:59 04/03/16 07:11 0.5 MG Levalbuterol 1.25 mg 1.25 mg Q6RWA INH 04/02/16 15:00 05/02/16 14:59 04/03/16 07:11 1.25 MG Vancomycin HCl/ Sodium Chloride (Vancomycin Inj/ Nss 250ml) 260 ml @ 125 mls/hr TODAY@1800 ONCE IV 04/03/16 18:00 04/03/16 20:04
[2016-04-03] MEDS ORDERED: VANCOMYCIN INJ 500 MG in SODIUM CHLORIDE 0.9% 250ML 250 ML IV ONE (18:00)
[2016-04-03 19:39] VITALS: PULSE 92; O2SAT 90
[2016-04-04] VITALS (8 sets, daily range): BP systolic 100–114; BP diastolic 64–75; PULSE 90–108; TEMP 36.8–37.1; O2SAT 93–98
[2016-04-04 06:50] LABS: HEMATOCRIT 30.7 % (37-47); MEAN CELL VOLUME 83.2 fL (80-100); MEAN CORPUSCULAR HEMOGLOBIN 25.5 pg (25-34); MEAN CORPUSCULAR HGB CONC 30.6 g/dl (32-36); MEAN PLATELET VOLUME 10.4 fL (7.4-10.4); PLATELET COUNT 114 K/uL (130-400); RED BLOOD COUNT 3.69 M/uL (4.2-5.4); WHITE BLOOD COUNT 2.41 K/uL (4.8-10.8)
[2016-04-04 06:59] LABS: BUN/CREATININE RATIO 25.6 (10-20); CALCIUM 8.3 mg/dl (8.5-10.1); CREATININE 0.73 mg/dl (0.60-1.20); POTASSIUM 3.9 mmol/L (3.5-5.1)
[2016-04-04] MEDS: IPRATROPIUM BROMIDE NEB SOLN 0.02% 2.5 ML VIAL INH SCH ×3 (07:24→19:15)
[2016-04-04] MEDS: LEVALBUTEROL 1.25MG/0.5ML NEB INH SCH ×3 (07:24→19:15)
[2016-04-04 07:43] LABS: BASO % 1.2 %; BASO ABS # 0.03 K/uL (0-0.2); COMPLETE YES; EOS % 6.2 %; GIANT PLATELETS 1+; IG% 0.4 %; LYMPH % 38.2 %; LYMPH ABS # 0.92 K/uL (1.2-3.4); MONO % 13.7 %; NEUT % 40.3 %
[2016-04-04] MEDS: GABAPENTIN 100 MG CAP PO SCH ×2 (08:46→21:01)
[2016-04-04] MEDS: PANTOprazole SOD 40 MG TAB PO SCH (08:47)
[2016-04-04] MEDS: VENLAFAXINE HCL XR 75 MG CAPXR PO SCH (08:47)
[2016-04-04] MEDS: VENLAFAXINE HCL XR 150 MG CAPXR PO SCH (08:47)
[2016-04-04] MEDS: ASPIRIN 81 MG ECTAB PO SCH (08:47)
[2016-04-04] MEDS: POLYETHYLENE (MIRALAX) 17 GM PACK PO SCH (08:47)
[2016-04-04] MEDS: MULTIVITAMIN TAB PO SCH (08:47)
[2016-04-04] MEDS: POTASSIUM CHLORIDE 20 MEQ TABCR PO SCH (08:48)
[2016-04-04] MEDS: MoRPHine SULFATE CR 15 MG TAB (MS CONTIN) PO SCH ×2 (08:53→21:01)
--- NOTE | 2016-04-04 09:38 | Clinical Documentation Query ---
CLINICAL DOCUMENTATION QUERY 60 year old female who presents to the Emergency Room with complaints of intermittent left sided chest pain In your clinical opinion is this patient being managed for: ( x ) Suspected Gram negative or MRSA pneumonia treated with IV Vancomycin and Levofloxacin in setting of HCAP ( ) Other explanation of clinical findings (Please Explain) ( ) Unable to determine (Please Define) ( ) Need to Discuss ( ) Not Agree The medical record reflects the following clinical findings, treatment, and risk factors. Clinical Indicators: Fever 38.0, tachycardia 111, and Multifocal pneumonia by Chest CT. Treatment: IV Vancomycin, IV Levofloxacin, Risk Factors: Age, recent healthcare contact, MRSA Hx. Please clarify and document your clinical opinion in the progress notes and discharge summary. Terms such as "probable", "suspected", "likely", "questionable", "possible", or "still to be ruled out" are acceptable. IF IN AGREEMENT, YOU MUST DOCUMENT ABOVE DIAGNOSTIC STATEMENT IN DAILY PROGRESS NOTES AND DISCHARGE SUMMARY. This document is not part of the patient's record. Thank You, Aj Sarmiento, YAEL [phone]
[2016-04-04] MEDS: LEVOFLOXACIN / D5W 750 MG in PREMIXED IN D5W 150 ML IV SCH (14:07)
--- NOTE | 2016-04-04 16:08 | Pharmacy Progress Note ---
Pharmacy Progress Note Subjective: The patient is currently on day # 3 of inpatient Vancomycin IV therapy (was on prior to admission for complicated MRSA knee replacement). Objective: Height (Feet): 5 Height (Inches): 2.00 Weight (Kilograms): 80.000 Levels: Item Value Date Time Random Vancomycin Level 23.2 mcg/ml 04/03/16 0950 Lab Results (24hrs): Laboratory Tests Test 04/03/16 05:53 Creatinine 0.83 mg/dl Assessment & Plan: Assessment * 60 y/o on IV Vancomycin for MRSA knee replacement. She also has HAP for which she is being treated with Levaquin (not a consult). Due to patient's unpredictable pharmacokinetics, Vancomycin is being dosed empirically based on random levels. * She has 1 of 2 positive blood culture this admission growing G+ cocci (COAG NEG STAPH) * Goal Vancomycin "trough" 15-20 mcg/mL * Random level on 04/03 @ 0950 (~23 hours after last dose) of 23.2 mcg/mL is near therapeutic * Random level on 04/04 @1450 (~20 hours after last dose) of 23.4 mcg/mL is near therapeutic * The patient will likely not fall below 15mcg/mL before tomorrow random level with AM labs - at that time, reassess and re-dose as needed Plan * Recheck random level on 04/05 with AM labs Pharmacy will continue to follow and will adjust dose/frequency as necessary. Thank you
--- NOTE | 2016-04-04 18:55 | Progress Note ---
Medicine Progress Note Date & Time of Visit: Apr 04, 2016 at 18:50. Subjective seen resting in bed, comfortable cough and sputum getting less no chest pain, dyspnea no right knee pain reports LLQ pain after using the toilet, but improves no other symptoms Objective Last 8 Hrs Date Time Temp Pulse Resp B/P Pulse Ox O2 Delivery O2 Flow Rate FiO2 04/04/16 16:00 94 Room Air 04/04/16 15:34 37.1 108 18 100/64 94 Room Air 04/04/16 14:16 101 18 95 Room Air Physical Exam: General- oriented x 3, not in distress, speaks in sentences with no effort Eyes- anicteric ENT- oropharynx clear Neck- supple, no JVD Lungs- (+) bilateral crackles- improving, no wheezing Heart- normal rate, regular rhythm; no murmur Abdomen- normal bowel sounds, soft, nontender Extremities-right leg: surgical wound well opposed, healing well, no discharge, sterile strips in place no pretibial edema, no calf tenderness Neuro- alert, oriented x 3; no gross focal deficits Skin- warm & dry Laboratory Results: Last 24 Hours Test 04/04/16 05:47 04/04/16 14:49 White Blood Count 2.41 K/uL Red Blood Count 3.69 M/uL Hemoglobin 9.4 g/dL Hematocrit 30.7 % Mean Corpuscular Volume 83.2 fL Mean Corpuscular Hemoglobin 25.5 pg Mean Corpuscular Hemoglobin Concent 30.6 g/dl Platelet Count 114 K/uL Mean Platelet Volume 10.4 fL Neutrophils (%) (Auto) 40.3 % Lymphocytes (%) (Auto) 38.2 % Monocytes (%) (Auto) 13.7 % Eosinophils (%) (Auto) 6.2 % Basophils (%) (Auto) 1.2 % Neutrophils # (Auto) 0.97 K/uL Lymphocytes # (Auto) 0.92 K/uL Monocytes # (Auto) 0.33 K/uL Eosinophils # (Auto) 0.15 K/uL Basophils # (Auto) 0.03 K/uL RDW Standard Deviation 52.8 fL RDW Coefficient of Variation 17.3 % Immature Granulocyte % (Auto) 0.4 % Immature Granulocyte # (Auto) 0.01 K/uL Giant Platelets 1+ Peripheral Blood Smear Path Consult Sodium Level 144 mmol/L Potassium Level 3.9 mmol/L Chloride Level 107 mmol/L Carbon Dioxide Level 27 mmol/L Anion Gap 10.0 mmol/L Blood Urea Nitrogen 19 mg/dl Creatinine 0.73 mg/dl Est Creatinine Clear Calc Drug Dose 78.3 ml/min Estimated GFR () 102.3 Estimated GFR (Non- 88.3 BUN/Creatinine Ratio 25.6 Random Glucose 90 mg/dl Calcium Level 8.3 mg/dl Random Vancomycin Level 23.4 mcg/ml Assessment & Plan 60 year old female from [facility] presents with productive cough, pleuritic chest pain [facility] P[facility]ON[facility] -CTA chest shows multifocal pneumonia, no PE - remains afebrile - sputum culture: Heavy normal maciel blood cultures: coag neg staph not lugdunensis flu: negative - continue Levaquin on Vanco for R Knee MRSA infection (follows with ID Fozia [place], plan was to transition patient to Augmentin) continue nebs q6h incentive spirometry - improving daily ELEVATED DDIMER - CTA chest negative for PE - Doppler US: no DVT H/O RIGHT KNEE REPLACEMENT INFECTION, H/O MRSA -continue Vancomycin via PICC line -Contact precautions -continue [facility] pain regimen/bowel regimen -Per patient plan is to start Augmentin in a few weeks (already listed on Med Reconciliation) follows with [facility] 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 Is high risk for VTE d/t immobilization and increased risk with RA. Defer anticoagulation to attending CODE STATUS: FULL CODE DISPO pending continue PT/OT admitted to [facility] since Right knee Surgery Current Inpatient Medications: Current Inpatient Medications Medications (Trade) Dose Ordered Sig/Poncho Route Start Time Stop Time Status Last Admin Dose Admin Ioversol (Optiray 320) 111 ml UD PRN IV 04/01/16 12:45 04/05/16 12:44 Acetaminophen (Tylenol Tab) 650 mg Q4H PRN PO 04/01/16 16:45 05/01/16 16:44 04/02/16 00:11 650 MG Ondansetron HCl (Zofran Inj) 4 mg Q6H PRN IV 04/01/16 16:45 05/01/16 16:44 Vancomycin HCl 1 ea 1 ea UD PRN N/A 04/01/16 17:37 05/01/16 17:36 Levofloxacin/Prmx (Levaquin / D5W/ Premixed D5W) 150 ml @ 100 mls/hr Q24H IV 04/02/16 14:00 04/07/16 23:59 04/04/16 14:07 100 MLS/HR Aspirin (Ecotrin Tab) 81 mg DAILY PO 04/02/16 09:00 05/02/16 08:59 04/04/16 08:47 81 MG Folic Acid (Folvite Tab) 1 mg DAILY PO 04/02/16 09:00 05/02/16 08:59 04/04/16 08:58 1 MG Gabapentin (Neurontin Cap) 200 mg BID PO 04/01/16 21:00 05/01/16 20:59 04/04/16 08:46 200 MG Hydroxyzine HCl (Vistaril Tab) 10 mg QID PRN PO 04/01/16 17:00 05/01/16 16:59 Multivitamins (Multivitamin Tab) 1 tab DAILY PO 04/02/16 09:00 05/02/16 08:59 04/04/16 08:47 1 TAB Oxycodone HCl (Roxicodone Immediate Rel Tab) 5 mg Q4H PRN PO 04/01/16 17:00 04/15/16 16:59 Pantoprazole Sodium (Protonix Tab) 40 mg DAILY PO 04/02/16 09:00 05/02/16 08:59 04/04/16 08:47 40 MG Potassium Chloride (Klor-Con Tab) 20 meq DAILY PO 04/02/16 09:00 05/02/16 08:59 04/04/16 08:48 20 MEQ Prednisone (PredniSONE TAB) 5 mg DAILY PO 04/02/16 09:00 05/02/16 08:59 04/04/16 08:46 5 MG Venlafaxine HCl (effeXOR EXTENDED REL CAP) 75 mg QAM PO 04/02/16 09:00 05/02/16 08:59 04/04/16 08:47 75 MG Venlafaxine HCl (effeXOR EXTENDED REL CAP) 150 mg QAM PO 04/02/16 09:00 05/02/16 08:59 04/04/16 08:47 150 MG Morphine Sulfate (Oramorph Sr Tab) 15 mg Q12 PO 04/01/16 21:00 05/01/16 20:59 04/04/16 08:53 15 MG Polyethylene (Miralax Powder Packet) 17 gm DAILY PO 04/02/16 09:00 05/02/16 08:59 04/04/16 08:47 17 GM Guaifenesin (Robitussin Sugar Free Syrup) 100 mg Q6H PRN PO 04/01/16 17:00 05/01/16 16:59 04/01/16 21:12 100 MG Albuterol (Ventolin Hfa Inhaler) 2 puffs Q4H PRN INH 04/01/16 17:15 05/01/16 17:14 Ipratropium [place] (Atrovent 0.02% 0.5MG/2.5ML Neb) 0.5 mg Q6RWA INH 04/02/16 15:00 05/02/16 14:59 04/04/16 14:16 0.5 MG Levalbuterol (Xopenex 1.25MG/ 0.5ML Neb) 1.25 mg Q6RWA INH 04/02/16 15:00 05/02/16 14:59 04/04/16 14:16 1.25 MG
[2016-04-05] VITALS (9 sets, daily range): BP systolic 90–118; BP diastolic 59–83; PULSE 81–109; TEMP 36.6–37; O2SAT 95–96
[2016-04-05 06:08] LABS: BASO % 0.4 %; BASO ABS # 0.01 K/uL (0-0.2); COMPLETE YES; EOS % 5.5 %; HEMATOCRIT 30.9 % (37-47); IG% 0.7 %; LYMPH ABS # 0.96 K/uL (1.2-3.4); MEAN CELL VOLUME 83.5 fL (80-100); MEAN CORPUSCULAR HEMOGLOBIN 25.7 pg (25-34); MEAN CORPUSCULAR HGB CONC 30.7 g/dl (32-36); MEAN PLATELET VOLUME 9.7 fL (7.4-10.4); MONO % 15.7 %; NEUT % 42.7 %; PLATELET COUNT 111 K/uL (130-400); WHITE BLOOD COUNT 2.74 K/uL (4.8-10.8)
[2016-04-05 06:40] LABS: BUN/CREATININE RATIO 25.5 (10-20); CALCIUM 8.2 mg/dl (8.5-10.1); CREATININE 0.72 mg/dl (0.60-1.20); POTASSIUM 3.8 mmol/L (3.5-5.1)
[2016-04-05] MEDS: LEVALBUTEROL 1.25MG/0.5ML NEB INH SCH ×3 (07:40→19:55)
[2016-04-05] MEDS: IPRATROPIUM BROMIDE NEB SOLN 0.02% 2.5 ML VIAL INH SCH ×3 (07:40→19:55)
[2016-04-05] MEDS: ASPIRIN 81 MG ECTAB PO SCH (08:03)
[2016-04-05] MEDS: VENLAFAXINE HCL XR 150 MG CAPXR PO SCH (08:03)
[2016-04-05] MEDS: VENLAFAXINE HCL XR 75 MG CAPXR PO SCH (08:03)
[2016-04-05] MEDS: POLYETHYLENE (MIRALAX) 17 GM PACK PO SCH (08:04)
[2016-04-05] MEDS: GABAPENTIN 100 MG CAP PO SCH ×2 (08:04→21:22)
[2016-04-05] MEDS: PANTOprazole SOD 40 MG TAB PO SCH (08:04)
[2016-04-05] MEDS: MoRPHine SULFATE CR 15 MG TAB (MS CONTIN) PO SCH ×2 (08:04→21:22)
[2016-04-05] MEDS: POTASSIUM CHLORIDE 20 MEQ TABCR PO SCH (08:04)
[2016-04-05] MEDS: MULTIVITAMIN TAB PO SCH (08:04)
--- NOTE | 2016-04-05 09:53 | Medical Consult ---
Consultation Date of Consultation: Apr 05, 2016. Attending Physician: Joi Carrillo M.D. Reason for Consultation: Pneumonia, infected right knee History of Present Illness 60-year-old female well known to me from previous infectious disease consultations, with underlying rheumatoid arthritis on prednisone, Felty syndrome, who has chronically infected right TKA, with cultures in the past growing both MRSA as well as Corynebacterium, also with wound cultures with Proteus, who was referred to [facility] for further management last year, and apparently underwent removal of spacer with reimplantation of prosthesis, which subsequently got reinfected and was removed. Patient now nearing completion of prolonged IV antibiotic course with vancomycin. Does not recall the organism isolated. She does have plans to transition to oral amoxicillin in the near future. She is now admitted with 3 day history of right-sided chest pain, cough , shortness of breath, green sputum, along with fever, chills, and weakness. chest x-ray, read and reviewed by me, shows evidence of pneumonia. Has been started on levofloxacin. She has shown clinical improvement with decrease in chest pain and improvement in shortness of breath. Currently afebrile. Tolerating antibiotic without apparent difficulty. 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 (6) Hx MRSA infection (7) Rheumatoid arthritis (8) Sepsis (9) Streptococcal pneumonia (10) Venous insufficiency Surgical Problems: (1) H/O esophagogastroduodenoscopy (2) Hx of breast biopsy (3) Hx of total knee replacement (4) S/P appendectomy (5) S/p thorascopic sugery (6) Sp placement antibiotic spacer in knee Family History FH: cancer SISTER (ovarian [place] age 49) Heart disease FATHER ( [place] age 67) Social History Smoking Status: Former Smoker Alcohol Use: none Drug Use: none Marital Status: Housing Status: lives with family Occupation Status: disabled Allergies Coded Allergies: Sulfa Antibiotics (Verified Allergy, Intermediate, USED CELEBREX IN PAST, 04/01/16) Adhesives (Verified Allergy, Mild, RASH, 04/01/16) Daptomycin (Verified Allergy, Unknown, RASH, 04/01/16) Heparin (Verified Allergy, Unknown, RASH, 04/01/16) PT VERBALIZED Note: Heparin platelet antibody (+) from 08/08/14 thought the reflex SHAISTA was (-) from 08/08/14. aj Current Inpatient Medications Current Inpatient Medications Medications (Trade) Dose Ordered Sig/Poncho Route Start Time Stop Time Status Last Admin Dose Admin Ioversol (Optiray 320) 111 ml UD PRN IV 04/01/16 12:45 04/05/16 12:44 Acetaminophen (Tylenol Tab) 650 mg Q4H PRN PO 04/01/16 16:45 05/01/16 16:44 04/02/16 00:11 650 MG Ondansetron HCl (Zofran Inj) 4 mg Q6H PRN IV 04/01/16 16:45 05/01/16 16:44 Vancomycin HCl 1 ea 1 ea UD PRN N/A 04/01/16 17:37 05/01/16 17:36 Levofloxacin/Prmx (Levaquin / D5W/ Premixed D5W) 150 ml @ 100 mls/hr Q24H IV 04/02/16 14:00 04/07/16 23:59 04/04/16 14:07 100 MLS/HR Aspirin (Ecotrin Tab) 81 mg DAILY PO 04/02/16 09:00 05/02/16 08:59 04/05/16 08:03 81 MG Folic Acid (Folvite Tab) 1 mg DAILY PO 04/02/16 09:00 05/02/16 08:59 04/05/16 08:03 1 MG Gabapentin (Neurontin Cap) 200 mg BID PO 04/01/16 21:00 05/01/16 20:59 04/05/16 08:04 200 MG Hydroxyzine HCl (Vistaril Tab) 10 mg QID PRN PO 04/01/16 17:00 05/01/16 16:59 Multivitamins (Multivitamin Tab) 1 tab DAILY PO 04/02/16 09:00 05/02/16 08:59 04/05/16 08:04 1 TAB Oxycodone HCl (Roxicodone Immediate Rel Tab) 5 mg Q4H PRN PO 04/01/16 17:00 04/15/16 16:59 Pantoprazole Sodium (Protonix Tab) 40 mg DAILY PO 04/02/16 09:00 05/02/16 08:59 04/05/16 08:04 40 MG Potassium Chloride (Klor-Con Tab) 20 meq DAILY PO 04/02/16 09:00 05/02/16 08:59 04/05/16 08:04 20 MEQ Prednisone (PredniSONE TAB) 5 mg DAILY PO 04/02/16 09:00 05/02/16 08:59 04/05/16 08:04 5 MG Venlafaxine HCl (effeXOR EXTENDED REL CAP) 75 mg QAM PO 04/02/16 09:00 05/02/16 08:59 04/05/16 08:03 75 MG Venlafaxine HCl (effeXOR EXTENDED REL CAP) 150 mg QAM PO 04/02/16 09:00 05/02/16 08:59 04/05/16 08:03 150 MG Morphine Sulfate (Oramorph Sr Tab) 15 mg Q12 PO 04/01/16 21:00 05/01/16 20:59 04/05/16 08:04 15 MG Polyethylene (Miralax Powder Packet) 17 gm DAILY PO 04/02/16 09:00 05/02/16 08:59 04/05/16 08:04 17 GM Guaifenesin (Robitussin Sugar Free Syrup) 100 mg Q6H PRN PO 04/01/16 17:00 05/01/16 16:59 04/01/16 21:12 100 MG Albuterol (Ventolin Hfa Inhaler) 2 puffs Q4H PRN INH 04/01/16 17:15 05/01/16 17:14 Ipratropium Rio (Atrovent 0.02% 0.5MG/2.5ML Neb) 0.5 mg Q6RWA INH 04/02/16 15:00 05/02/16 14:59 04/05/16 07:40 0.5 MG Levalbuterol 1.25 mg 1.25 mg Q6RWA INH 04/02/16 15:00 05/02/16 14:59 04/05/16 07:40 1.25 MG Vancomycin HCl/ Sodium Chloride (Vancomycin Inj/ Nss 100ml) 110 ml @ 110 mls/hr TODAY@1000 ONCE IV 04/05/16 10:00 04/05/16 10:59 Review of Systems Constitutional: + chills, + fatigue, + fever, + weakness Eyes: No problem reported ENT: No problem reported Respiratory: + cough, + shortness of breath, + sputum Cardiovascular: + chest pain Abdomen: No problem reported Musculoskeletal: + joint pain Genitourinary - Female: No problem reported Neurologic: No problem reported Endocrine: + fatigue Hematologic / Lymphatic: No problem reported Integumentary: No problem reported Allergic / Immunologic: No problem reported Physical Exam Date Time Temp Pulse Resp B/P Pulse Ox O2 Delivery O2 Flow Rate FiO2 04/05/16 08:00 Room Air 04/05/16 07:40 92 18 96 Room Air 04/05/16 07:21 37.0 81 18 90/59 96 Room Air 04/05/16 00:00 96 Room Air 04/04/16 23:36 36.8 90 16 103/69 96 Room Air 04/04/16 19:15 96 18 93 Room Air 04/04/16 16:00 94 Room Air 04/04/16 15:34 37.1 108 18 100/64 94 Room Air 04/04/16 14:16 101 18 95 Room Air General Appearance: WD/WN, no apparent distress Head: normocephalic, atraumatic Eyes: normal inspection, EOMI, sclerae normal ENT: normal ENT inspection, pharynx normal Neck: supple, no adenopathy, trachea midline Respiratory/Chest: lungs clear, normal breath sounds, no respiratory distress Cardiovascular: regular rate, rhythm, no gallop, no murmur Abdomen/GI: normal bowel sounds, non tender, soft, no organomegaly Back: normal inspection, no CVA tenderness Extremities/Musculoskelatal: no calf tenderness, normal capillary refill Neurologic/Psych: alert, normal mood/affect, oriented x 3 Skin: normal color, warm/dry, no rash, + pertinent finding (surgical wound right knee healing well) Laboratory Results RUN DATE: 04/04/16 [facility] LAB PAGE 1 RUN TIME: 1334 Specimen Inquiry PATIENT: LEIGHTON FELDMAN LOC: [facility]W U # : [id number] AGE/SX: 60/F ROOM: [facility] REG : 04/01/[address]: Julio Neumann MD : 1955 BED: 1 DIS : STATUS: ADM IN TLOC: SPEC #: [id number] ADAM: 04/01/16 STATUS: RES REQ #: [id number] RECD: 04/01/[address]: Timur Agustin M.D. SOURCE: BLOOD ENTR: 04/01/16-141 [facility] DR: Ramesh Aburto M.D. SPDESC: ORDERED: BLOOD CULTURE COMMENTS: Comments to Posting Specialist SAME TIME DIFFERENT SITES Procedure Result Verified Site BLD CULT Preliminary 04/04/16-1333 Organism 1 COAG NEG STAPH NOT LUGDUNENSIS SENS NO SENSITIVITY TO FOLLOW One set of 2 positive. Isolation does not necessarily mean infection. No susceptibility tests performed. Contact microbiology laboratory [phone]) if further studies are indicated. Phoned Positive Blood Culture Gram Stain Report to CRISTIANA WU on 04/03/16 At 1258 By STEWAL. Results were verbalized back to STEWAL. Last 24 Hours Test 04/04/16 14:49 04/05/16 05:36 Random Vancomycin Level 23.4 mcg/ml 18.5 mcg/ml White Blood Count 2.74 K/uL Red Blood Count 3.70 M/uL Hemoglobin 9.5 g/dL Hematocrit 30.9 % Mean Corpuscular Volume 83.5 fL Mean Corpuscular Hemoglobin 25.7 pg Mean Corpuscular Hemoglobin Concent 30.7 g/dl Platelet Count 111 K/uL Mean Platelet Volume 9.7 fL Neutrophils (%) (Auto) 42.7 % Lymphocytes (%) (Auto) 35.0 % Monocytes (%) (Auto) 15.7 % Eosinophils (%) (Auto) 5.5 % Basophils (%) (Auto) 0.4 % Neutrophils # (Auto) 1.17 K/uL Lymphocytes # (Auto) 0.96 K/uL Monocytes # (Auto) 0.43 K/uL Eosinophils # (Auto) 0.15 K/uL Basophils # (Auto) 0.01 K/uL RDW Standard Deviation 52.9 fL RDW Coefficient of Variation 17.4 % Immature Granulocyte % (Auto) 0.7 % Immature Granulocyte # (Auto) 0.02 K/uL Sodium Level 144 mmol/L Potassium Level 3.8 mmol/L Chloride Level 108 mmol/L Carbon Dioxide Level 28 mmol/L Anion Gap 8.0 mmol/L Blood Urea Nitrogen 18 mg/dl Creatinine 0.72 mg/dl Est Creatinine Clear Calc Drug Dose 79.4 ml/min Estimated GFR () 104.0 Estimated GFR (Non- 89.8 BUN/Creatinine Ratio 25.5 Random Glucose 85 mg/dl Calcium Level 8.2 mg/dl Patient Name: LEIGHTON FELDMAN Unit Number: [id number] Dictated: 04/01/161338 Transcribed: 04/01/161338 PA Printed Date/Time: [~ rep prt dt]/[~ rep prt tm] [~ rep ct labl] - [~ rep ct ivnm] [facility] Radiology Department [place], [place] [id number] Dictated: 04/01/161338 Transcribed: 04/01/161338 PAJ Printed Date/Time: [~ rep prt dt]/[~ rep prt tm] [~ rep ct labl] - [~ rep ct ivnm] CHEST CTA for PULMONARY ARTERIES CT DOSE: 265.53 mGy.cm HISTORY: Atypical chest pain. TECHNIQUE: Multiaxial CT images of the chest were performed following the intravenous administration of contrast to evaluate the pulmonary arteries. Maximal intensity projection images were also obtained. COMPARISON STUDY: Chest CTA 06/26/2015. FINDINGS: Normal caliber thoracic aorta with no evidence for dissection. The heart is normal in size. Trace left pleural effusion. No filling defects within the pulmonary arteries to suggest pulmonary embolus. Slightly nodular contour to the liver surface suggestive of cirrhosis. Marked splenomegaly, unchanged. Multiple borderline enlarged mediastinal and right hilar lymph nodes. These have improved in the interval. Mildly enlarged anterior diaphragmatic lymph nodes are not significant changed. Stable subcentimeter axillary lymph nodes. Old right-sided rib fractures. No pneumothorax. A few irregular patchy and nodular airspace opacities within the right upper lobe and peripheral base of the right lower lobe. There is also focal consolidation within the lingula with associated air bronchogram. A few additional smaller nodular airspace opacity within the medial aspect of the lingula. The central airways are patent. Mild bronchiectasis. IMPRESSION: 1. No evidence for pulmonary embolus. 2. Scattered irregular and nodular airspace opacities seen within the right upper lobe, right lower lobe, and lingula. This favors a multifocal pneumonia. One to 2 month chest x-ray follow up is recommended to ensure resolution. 3. Trace left pleural effusion. 4. Mild bronchiectasis. 5. Severe splenomegaly, unchanged. 6. Mildly enlarged anterior diaphragmatic lymph nodes are stable. Borderline enlarged mediastinal and right hilar lymph nodes are slightly improved. Electronically signed by: Satinder Fishman M.D. 04/01/2016 2:01 PM Dictated Date/Time: 04/01/2016 1:39 PM The status of this report is Signed. Draft = Not yet reviewed or approved by Radiologist. Signed = Reviewed and approved by Radiologist. <AttendingPhy></AttendingPhy> <FamilyPhy>Ramesh Aburto M.D.</FamilyPhy> < PrimaryPhy>Ramesh Aburto M.D.</PrimaryPhy> <UnitNumber>[id number]</UnitNumber > <VisitNumber>[id number]</VisitNumber> <PatientName>LEIGHTON FELDMAN</ PatientName> <DateOfBirth>1955</DateOfBirth> <Location>[facility]</Location> < ServiceDate>04/01/16</ServiceDate> <MNE>ESINDI</MNE> <OrderingPhy>Timur Agustin M.D.</OrderingPhy> <OrderingPhyMNE>f rep ord dr lopez</OrderingPhyMNE> < DictatingPhyMNE>f rep dict dr lopez</DictatingPhyMNE> <CCListMNE>f rep ct chidie</ CCListMNE> <AdmittingPhyMNE>f pt admit dr lopez</AdmittingPhyMNE> <AttendingPhyMNE >f pt attend dr lopez</AttendingPhyMNE> <ConsultingPhyMNE>f pt consult dr lopez</ConsultingPhyMNE> <FamilyPhyMNE>f pt fam dr lopez</FamilyPhyMNE> <OtherPhyMNE>f pt other dr lopez</OtherPhyMNE> < PrimaryPhyMNE>f pt prim care dr lopez</PrimaryPhyMNE> <ReferringPhyMNE>f pt referring dr lopez</ReferringPhyMNE> Assessment & Plan 60 yo female with chronically infected right TKA, now with spacer, most recent pathogen unknown, completing IV vancomycin therapy, also on chronic prednisone for RA, now with pneumonia clinically responding to levofloxacin. Would continue patient on both antibiotics, with length likely in the range of 7 days. There are then plans to transition patient to oral amoxicillin once back at her nursing facility. Will defer outpatient follow-up to Dr. Johnson at [facility].
[2016-04-05] MEDS ORDERED: VANCOMYCIN INJ 500 MG in SODIUM CHLORIDE 0.9% 100ML 100 ML IV ONE (10:00)
[2016-04-05] MEDS: LEVOFLOXACIN / D5W 750 MG in PREMIXED IN D5W 150 ML IV SCH (13:32)
--- NOTE | 2016-04-05 14:58 | Pharmacy Progress Note ---
Pharmacy Progress Note Subjective: The patient is currently on day # 5 of inpatient Vancomycin IV therapy (was on prior to admission for complicated MRSA knee replacement). Objective: Height (Feet): 5 Height (Inches): 2.00 Weight (Kilograms): 80.000 Levels: Item Value Date Time Random Vancomycin Level 18.5 mcg/ml 04/05/16 0530 Lab Results (24hrs): Laboratory Tests Test 04/03/16 05:53 Creatinine 0.7 mg/dl Assessment & Plan: Assessment * 60 y/o on IV Vancomycin for MRSA knee replacement. She also has HAP for which she is being treated with Levaquin (not a consult). Due to patient's unpredictable pharmacokinetics, Vancomycin is being dosed empirically based on random levels. * appears to exhibit zero order kinetics when volume of distribution is filled (elimination is independent of vancomycin concentration) * She has 1 of 2 positive blood culture this admission growing G+ cocci (COAG NEG STAPH) * Goal Vancomycin "trough" 15-20 mcg/mL * Random level on 04/03 @ 0950 (~23 hours after last dose) of 23.2 mcg/mL is near therapeutic * Random level on 04/04 @1450 (~20 hours after last dose) of 23.4 mcg/mL is near therapeutic * Random level on 04/05 @ 0530 (~30 hours after last dose) of 18.5 mcg/mL is therapeutic and requires small re-dose Plan * Recheck random level on 04/06 with AM labs * re-dose when level is below 20mcg/mL Pharmacy will continue to follow and will adjust dose/frequency as necessary. Thank you <Electronically signed by Alice Chan Pharm.D.> Signed: 04/04/16 8018 Signed: The status of this report is Signed * If report status is Draft, the document has not been finalized by the responsible provider.
--- NOTE | 2016-04-05 15:22 | Progress Note ---
Internal Med Progress Note Date of Service: Apr 05, 2016. Provider Documentation: SUBJECTIVE: The patient was seen and examined Cough and respiratory symptoms are better OBJECTIVE: Vital Signs-as noted below Exam: General-No distress at rest Eyes-normal ENT-normal Neck-supple Lungs-Coarse crackles bilaterally at the bases ,more on the right Heart-Regular,nop murmur Abdomen-Benign,no masses,bowel sound present Extremities-No edema Neuro-AAOx3 Lab data as noted below. ASSESSMENT & PLAN: Suspected Gm Negative or MRSA pneumonia treated with IV Vanco and Levaquin in setting of HCAP -CTA chest shows multifocal pneumonia, no PE - sputum culture: Heavy normal maciel. flu: negative -blood cultures: coag neg staph not lugdunensis - continue Levaquin -has been on Vanco for R Knee MRSA infection (follows with ID Fozia [place], plan was to transition patient to Augmentin) -Appreciate ID input and recommendation -Continue IV Vanco and Levaquin for now for 7 days -oral transition to Amoxicillin ELEVATED DDIMER - CTA chest negative for PE - Doppler US: no DVT H/O RIGHT KNEE REPLACEMENT INFECTION, H/O MRSA -continue Vancomycin via PICC line -continue [facility] pain regimen/bowel regimen -Per patient plan is to start Augmentin in a few weeks (already listed on Med Reconciliation) -follows with [facility] ID Dr. [place] - PT/OT RHEUMATOID ARTHRITIS/FELTY'S SYNDROME -continue Prednisone, folic acid -no acute issue GERD/BAHMAN'S ESOPHAGUS -continue PPI DEPRESSION -continue Effexor PANCYTOPENIA stable ASTHMA No acute Exacerbation nebs q6h DVT PROPHYLAXIS: continue Aspirin 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 I s high risk for VTE d/t immobilization and increased risk with RA. CODE STATUS: FULL CODE DISPO pending continue PT/OT admitted to [facility] since Right knee Surgery Current Inpatient Medications: Vital Signs: Date Time Temp Pulse Resp B/P Pulse Ox O2 Delivery O2 Flow Rate FiO2 04/05/16 15:10 36.6 109 16 95/64 96 Room Air 04/05/16 14:16 92 18 96 Room Air 04/05/16 08:00 Room Air 04/05/16 07:40 92 18 96 Room Air 04/05/16 07:21 37.0 81 18 90/59 96 Room Air 04/05/16 00:00 96 Room Air 04/04/16 23:36 36.8 90 16 103/69 96 Room Air 04/04/16 19:15 96 18 93 Room Air 04/04/16 16:00 94 Room Air 04/04/16 15:34 37.1 108 18 100/64 94 Room Air Lab Results: Results Past 24 Hours Test 04/05/16 05:36 Range/Units White Blood Count 2.74 4.8-10.8 K/uL Red Blood Count 3.70 4.2-5.4 M/uL Hemoglobin 9.5 12.0-16.0 g/dL Hematocrit 30.9 37-47 % Mean Corpuscular Volume 83.5 80-100 fL Mean Corpuscular Hemoglobin 25.7 25-34 pg Mean Corpuscular Hemoglobin Concent 30.7 32-36 g/dl Platelet Count 111 130-400 K/uL Mean Platelet Volume 9.7 7.4-10.4 fL Neutrophils (%) (Auto) 42.7 % Lymphocytes (%) (Auto) 35.0 % Monocytes (%) (Auto) 15.7 % Eosinophils (%) (Auto) 5.5 % Basophils (%) (Auto) 0.4 % Neutrophils # (Auto) 1.17 1.4-6.5 K/uL Lymphocytes # (Auto) 0.96 1.2-3.4 K/uL Monocytes # (Auto) 0.43 0.11-0.59 K/uL Eosinophils # (Auto) 0.15 0-0.5 K/uL Basophils # (Auto) 0.01 0-0.2 K/uL RDW Standard Deviation 52.9 36.4-46.3 fL RDW Coefficient of Variation 17.4 11.5-14.5 % Immature Granulocyte % (Auto) 0.7 % Immature Granulocyte # (Auto) 0.02 0.00-0.02 K/uL Sodium Level 144 136-145 mmol/L Potassium Level 3.8 3.5-5.1 mmol/L Chloride Level 108 98-107 mmol/L Carbon Dioxide Level 28 21-32 mmol/L Anion Gap 8.0 3-11 mmol/L Blood Urea Nitrogen 18 7-18 mg/dl Creatinine 0.72 0.60-1.20 mg/dl Est Creatinine Clear Calc Drug Dose 79.4 ml/min Estimated GFR () 104.0 Estimated GFR (Non- 89.8 BUN/Creatinine Ratio 25.5 10-20 Random Glucose 85 70-99 mg/dl Calcium Level 8.2 8.5-10.1 mg/dl Random Vancomycin Level 18.5 mcg/ml
[2016-04-06] VITALS (7 sets, daily range): BP systolic 99–122; BP diastolic 67–80; PULSE 67–123; TEMP 36.6–36.8; O2SAT 93–95
[2016-04-06 06:16] LABS: BASO % 0.3 %; BASO ABS # 0.01 K/uL (0-0.2); COMPLETE YES; EOS % 4.2 %; HEMATOCRIT 33.1 % (37-47); IG% 0.7 %; LYMPH % 31.6 %; LYMPH ABS # 0.91 K/uL (1.2-3.4); MEAN CELL VOLUME 83.2 fL (80-100); MEAN CORPUSCULAR HEMOGLOBIN 25.9 pg (25-34); MEAN CORPUSCULAR HGB CONC 31.1 g/dl (32-36); MEAN PLATELET VOLUME 10.3 fL (7.4-10.4); MONO % 12.5 %; NEUT % 50.7 %; PLATELET COUNT 117 K/uL (130-400); RED BLOOD COUNT 3.98 M/uL (4.2-5.4); WHITE BLOOD COUNT 2.88 K/uL (4.8-10.8)
[2016-04-06 06:45] LABS: BUN/CREATININE RATIO 28.5 (10-20); CALCIUM 8.3 mg/dl (8.5-10.1); CREATININE 0.72 mg/dl (0.60-1.20); POTASSIUM 3.9 mmol/L (3.5-5.1)
[2016-04-06] MEDS: LEVALBUTEROL 1.25MG/0.5ML NEB INH SCH ×3 (06:48→19:47)
[2016-04-06] MEDS: IPRATROPIUM BROMIDE NEB SOLN 0.02% 2.5 ML VIAL INH SCH ×3 (06:48→19:47)
[2016-04-06] MEDS: ASPIRIN 81 MG ECTAB PO SCH (07:51)
[2016-04-06] MEDS: VENLAFAXINE HCL XR 75 MG CAPXR PO SCH (07:51)
[2016-04-06] MEDS: VENLAFAXINE HCL XR 150 MG CAPXR PO SCH (07:51)
[2016-04-06] MEDS: GABAPENTIN 100 MG CAP PO SCH ×2 (07:52→21:09)
[2016-04-06] MEDS: PANTOprazole SOD 40 MG TAB PO SCH (07:52)
[2016-04-06] MEDS: MULTIVITAMIN TAB PO SCH (07:52)
[2016-04-06] MEDS: POTASSIUM CHLORIDE 20 MEQ TABCR PO SCH (07:52)
[2016-04-06] MEDS: POLYETHYLENE (MIRALAX) 17 GM PACK PO SCH (07:52)
[2016-04-06] MEDS: MoRPHine SULFATE CR 15 MG TAB (MS CONTIN) PO SCH ×2 (07:52→21:09)
[2016-04-06] MEDS: LEVOFLOXACIN / D5W 750 MG in PREMIXED IN D5W 150 ML IV SCH (13:48)
--- NOTE | 2016-04-06 17:06 | Progress Note ---
Internal Med Progress Note Date of Service: Apr 06, 2016. Provider Documentation: SUBJECTIVE: The patient was seen and examined Cough and respiratory symptoms are better Clinically much better today OBJECTIVE: Vital Signs-as noted below Exam: General-No distress at rest Eyes-normal ENT-normal Neck-supple Lungs-Coarse crackles bilaterally at the bases ,more on the right Heart-Regular,no murmur Abdomen-Benign,no masses,bowel sound present Extremities-No edema Rheumatoid changes in both the hands Neuro-AAOx3 Lab data as noted below. ASSESSMENT & PLAN: Suspected Gm Negative or MRSA pneumonia treated with IV Vanco and Levaquin in setting of HCAP -CTA chest shows multifocal pneumonia, no PE - sputum culture: Heavy normal maciel. flu: negative -blood cultures: coag neg staph not lugdunensis - continue Levaquin -has been on Vanco for R Knee MRSA infection (follows with ID Fozia [place], plan was to transition patient to Augmentin) -Appreciate ID input and recommendation -Continue IV Vanco and Levaquin for now for 7 days -oral transition to Amoxicillin -Likely discharge tomorrow after IV antibiotics are done ELEVATED DDIMER - CTA chest negative for PE - Doppler US: no DVT H/O RIGHT KNEE REPLACEMENT INFECTION, H/O MRSA -continue Vancomycin via PICC line -continue [facility] pain regimen/bowel regimen -Per patient plan is to start Augmentin in a few weeks (already listed on Med Reconciliation) -follows with [facility] ID Dr. [place] - PT/OT-evaluation RHEUMATOID ARTHRITIS/FELTY'S SYNDROME -continue Prednisone, folic acid -no acute issue GERD/BAHMAN'S ESOPHAGUS -continue PPI DEPRESSION -continue Effexor PANCYTOPENIA stable ASTHMA No acute Exacerbation nebs q6h DVT PROPHYLAXIS: continue Aspirin 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 Is high risk for VTE d/t immobilization and increased risk with RA. CODE STATUS: FULL CODE DISPO pending continue PT/OT admitted to [facility] since Right knee Surgery Current Inpatient Medications: Vital Signs: Date Time Temp Pulse Resp B/P Pulse Ox O2 Delivery O2 Flow Rate FiO2 04/06/16 15:06 36.7 123 20 99/68 94 Room Air 04/06/16 14:20 114 18 93 Room Air 04/06/16 08:00 Room Air 04/06/16 07:13 36.8 86 16 108/67 95 Room Air 04/06/16 06:48 89 18 95 Room Air 04/06/16 01:00 Room Air 04/05/16 23:08 36.9 93 20 105/71 96 Room Air 04/05/16 19:57 87 18 95 Room Air Lab Results: Results Past 24 Hours Test 04/06/16 05:21 04/06/16 05:28 Range/Units Random Vancomycin Level 24.7 mcg/ml White Blood Count 2.88 4.8-10.8 K/uL Red Blood Count 3.98 4.2-5.4 M/uL Hemoglobin 10.3 12.0-16.0 g/dL Hematocrit 33.1 37-47 % Mean Corpuscular Volume 83.2 80-100 fL Mean Corpuscular Hemoglobin 25.9 25-34 pg Mean Corpuscular Hemoglobin Concent 31.1 32-36 g/dl Platelet Count 117 130-400 K/uL Mean Platelet Volume 10.3 7.4-10.4 fL Neutrophils (%) (Auto) 50.7 % Lymphocytes (%) (Auto) 31.6 % Monocytes (%) (Auto) 12.5 % Eosinophils (%) (Auto) 4.2 % Basophils (%) (Auto) 0.3 % Neutrophils # (Auto) 1.46 1.4-6.5 K/uL Lymphocytes # (Auto) 0.91 1.2-3.4 K/uL Monocytes # (Auto) 0.36 0.11-0.59 K/uL Eosinophils # (Auto) 0.12 0-0.5 K/uL Basophils # (Auto) 0.01 0-0.2 K/uL RDW Standard Deviation 53.5 36.4-46.3 fL RDW Coefficient of Variation 17.4 11.5-14.5 % Immature Granulocyte % (Auto) 0.7 % Immature Granulocyte # (Auto) 0.02 0.00-0.02 K/uL Sodium Level 142 136-145 mmol/L Potassium Level 3.9 3.5-5.1 mmol/L Chloride Level 106 98-107 mmol/L Carbon Dioxide Level 30 21-32 mmol/L Anion Gap 6.0 3-11 mmol/L Blood Urea Nitrogen 21 7-18 mg/dl Creatinine 0.72 0.60-1.20 mg/dl Est Creatinine Clear Calc Drug Dose 79.4 ml/min Estimated GFR () 104.0 Estimated GFR (Non- 89.8 BUN/Creatinine Ratio 28.5 10-20 Random Glucose 87 70-99 mg/dl Calcium Level 8.3 8.5-10.1 mg/dl
--- NOTE | 2016-04-06 20:09 | Infectious Disease Progress Nt ---
Progress Note Date of Service Apr 06, 2016. Subjective Pt evaluation today including: conversation w/ patient, physical exam, chart review, lab review, review of studies, conversation w/ functional consultant, review of inpatient medication list Patient remains afebrile and hemodynamically stable overnight. No increase in shortness of breath or cough. No significant right knee pain. No other new complaints. All Other Systems: Reviewed and Negative Medications Current Inpatient Medications Medications (Trade) Dose Ordered Sig/Poncho Route Start Time Stop Time Status Last Admin Dose Admin Acetaminophen (Tylenol Tab) 650 mg Q4H PRN PO 04/01/16 16:45 05/01/16 16:44 04/02/16 00:11 650 MG Ondansetron HCl (Zofran Inj) 4 mg Q6H PRN IV 04/01/16 16:45 05/01/16 16:44 Vancomycin HCl 1 ea 1 ea UD PRN N/A 04/01/16 17:37 05/01/16 17:36 Levofloxacin/Prmx (Levaquin / D5W/ Premixed D5W) 150 ml @ 100 mls/hr Q24H IV 04/02/16 14:00 04/07/16 23:59 04/06/16 13:48 100 MLS/HR Aspirin (Ecotrin Tab) 81 mg DAILY PO 04/02/16 09:00 05/02/16 08:59 04/06/16 07:51 81 MG Folic Acid (Folvite Tab) 1 mg DAILY PO 04/02/16 09:00 05/02/16 08:59 04/06/16 07:52 1 MG Gabapentin (Neurontin Cap) 200 mg BID PO 04/01/16 21:00 05/01/16 20:59 04/06/16 07:52 200 MG Hydroxyzine HCl (Vistaril Tab) 10 mg QID PRN PO 04/01/16 17:00 05/01/16 16:59 Multivitamins (Multivitamin Tab) 1 tab DAILY PO 04/02/16 09:00 05/02/16 08:59 04/06/16 07:52 1 TAB Oxycodone HCl (Roxicodone Immediate Rel Tab) 5 mg Q4H PRN PO 04/01/16 17:00 04/15/16 16:59 Pantoprazole Sodium (Protonix Tab) 40 mg DAILY PO 04/02/16 09:00 05/02/16 08:59 04/06/16 07:52 40 MG Potassium Chloride (Klor-Con Tab) 20 meq DAILY PO 04/02/16 09:00 05/02/16 08:59 04/06/16 07:52 20 MEQ Prednisone (PredniSONE TAB) 5 mg DAILY PO 04/02/16 09:00 05/02/16 08:59 04/06/16 07:52 5 MG Venlafaxine HCl (effeXOR EXTENDED REL CAP) 75 mg QAM PO 04/02/16 09:00 05/02/16 08:59 04/06/16 07:51 75 MG Venlafaxine HCl (effeXOR EXTENDED REL CAP) 150 mg QAM PO 04/02/16 09:00 05/02/16 08:59 04/06/16 07:51 150 MG Morphine Sulfate (Oramorph Sr Tab) 15 mg Q12 PO 04/01/16 21:00 05/01/16 20:59 04/06/16 07:52 15 MG Polyethylene (Miralax Powder Packet) 17 gm DAILY PO 04/02/16 09:00 05/02/16 08:59 04/06/16 07:52 17 GM Guaifenesin (Robitussin Sugar Free Syrup) 100 mg Q6H PRN PO 04/01/16 17:00 05/01/16 16:59 04/01/16 21:12 100 MG Albuterol (Ventolin Hfa Inhaler) 2 puffs Q4H PRN INH 04/01/16 17:15 05/01/16 17:14 Ipratropium [place] (Atrovent 0.02% 0.5MG/2.5ML Neb) 0.5 mg Q6RWA INH 04/02/16 15:00 05/02/16 14:59 04/06/16 19:47 0.5 MG Levalbuterol (Xopenex 1.25MG/ 0.5ML Neb) 1.25 mg Q6RWA INH 04/02/16 15:00 05/02/16 14:59 04/06/16 19:47 1.25 MG Objective Vital Signs Date Time Temp Pulse Resp B/P Pulse Ox O2 Delivery O2 Flow Rate FiO2 04/06/16 19:47 67 16 93 Room Air 04/06/16 16:00 94 Room Air 04/06/16 15:06 36.7 123 20 99/68 94 Room Air 04/06/16 14:20 114 18 93 Room Air 04/06/16 08:00 Room Air 04/06/16 07:13 36.8 86 16 108/67 95 Room Air 04/06/16 06:48 89 18 95 Room Air 04/06/16 01:00 Room Air 04/05/16 23:08 36.9 93 20 105/71 96 Room Air Physical Exam General Appearance: WD/WN, no apparent distress Eyes: normal inspection, sclerae normal ENT: normal ENT inspection, pharynx normal Neck: supple, no adenopathy, trachea midline Respiratory/Chest: chest non-tender, no respiratory distress, no accessory muscle use, + rales Cardiovascular: regular rate, rhythm, no gallop, no murmur Abdomen: normal bowel sounds, non tender, soft, no organomegaly Extremities: non-tender, no calf tenderness Neurologic/Psychiatric: alert, oriented x 3 Skin: normal color, no rash Lymphatic: no adenopathy Laboratory Results RUN DATE: 04/03/16 [facility] LAB PAGE 1 RUN TIME: 1211 Specimen Inquiry PATIENT: LEIGHTON FELDMAN LOC: C.MS2W U # : [id number] AGE/SX: 60/F ROOM: [facility] REG : 04/01/[address]: Julio Neumann MD : [id number] BED: 1 DIS : STATUS: ADM IN TLOC: SPEC #: [id number] ADAM: 04/01/16 STATUS: COMP REQ #: [id number] RECD: 04/01/[address] [facility] [address]: Arlin Cornejo PA-C SOURCE: SPUTUM ENTR: 04/01/[address] [facility] [address]: Kameron Aguilar M.D. SPDESC: EXP.SPUTUM Ramesh Aburto M.D., Brian D., M.D. ORDERED: SPUT CULT/SMR COMMENTS: Has Specimen Been Obtained/Collected? Y Procedure Result Verified Site GRAM STAIN Final 04/02/16 RESULT FEW EPITHELIAL CELLS MANY POLYS MANY GRAM NEGATIVE DIPLOCOCCI FEW GRAM POSITIVE COCCI SPUTUM CULTURE Final 04/03/16 HEAVY NORMAL HANK Last 24 Hours Test 04/06/16 05:21 04/06/16 05:28 Random Vancomycin Level 24.7 mcg/ml White Blood Count 2.88 K/uL Red Blood Count 3.98 M/uL Hemoglobin 10.3 g/dL Hematocrit 33.1 % Mean Corpuscular Volume 83.2 fL Mean Corpuscular Hemoglobin 25.9 pg Mean Corpuscular Hemoglobin Concent 31.1 g/dl Platelet Count 117 K/uL Mean Platelet Volume 10.3 fL Neutrophils (%) (Auto) 50.7 % Lymphocytes (%) (Auto) 31.6 % Monocytes (%) (Auto) 12.5 % Eosinophils (%) (Auto) 4.2 % Basophils (%) (Auto) 0.3 % Neutrophils # (Auto) 1.46 K/uL Lymphocytes # (Auto) 0.91 K/uL Monocytes # (Auto) 0.36 K/uL Eosinophils # (Auto) 0.12 K/uL Basophils # (Auto) 0.01 K/uL RDW Standard Deviation 53.5 fL RDW Coefficient of Variation 17.4 % Immature Granulocyte % (Auto) 0.7 % Immature Granulocyte # (Auto) 0.02 K/uL Sodium Level 142 mmol/L Potassium Level 3.9 mmol/L Chloride Level 106 mmol/L Carbon Dioxide Level 30 mmol/L Anion Gap 6.0 mmol/L Blood Urea Nitrogen 21 mg/dl Creatinine 0.72 mg/dl Est Creatinine Clear Calc Drug Dose 79.4 ml/min Estimated GFR () 104.0 Estimated GFR (Non- 89.8 BUN/Creatinine Ratio 28.5 Random Glucose 87 mg/dl Calcium Level 8.3 mg/dl Assessment and Plan 60 yo female with chronically infected right TKA, now with spacer, most recent pathogen unknown, completing IV vancomycin therapy, also on chronic prednisone for RA, now with pneumonia clinically responding to levofloxacin. Would continue patient on both antibiotics, with length likely in the range of 7 days. There are then plans to transition patient to oral amoxicillin once back at her nursing facility. Will defer outpatient follow-up to Dr. Johnson at [facility].
[2016-04-07 06:01] LABS: BASO % 0.7 %; BASO ABS # 0.02 K/uL (0-0.2); COMPLETE YES; EOS % 3.5 %; HEMATOCRIT 30.7 % (37-47); LYMPH % 35.5 %; LYMPH ABS # 1.02 K/uL (1.2-3.4); MEAN CORPUSCULAR HEMOGLOBIN 25.4 pg (25-34); MEAN CORPUSCULAR HGB CONC 30.6 g/dl (32-36); MEAN PLATELET VOLUME 10.2 fL (7.4-10.4); MONO % 9.8 %; NEUT % 49.5 %; PLATELET COUNT 105 K/uL (130-400); WHITE BLOOD COUNT 2.87 K/uL (4.8-10.8)
[2016-04-07 06:36] LABS: BUN/CREATININE RATIO 27.6 (10-20); CREATININE 0.75 mg/dl (0.60-1.20); POTASSIUM 3.9 mmol/L (3.5-5.1)
[2016-04-07 06:58] VITALS: BP 95/70; PULSE 98; TEMP 36.6; O2SAT 94
[2016-04-07 07:03] VITALS: PULSE 94; O2SAT 93
[2016-04-07] MEDS: IPRATROPIUM BROMIDE NEB SOLN 0.02% 2.5 ML VIAL INH SCH ×2 (07:03→14:39)
[2016-04-07] MEDS: LEVALBUTEROL 1.25MG/0.5ML NEB INH SCH ×2 (07:03→14:39)
[2016-04-07] MEDS: ASPIRIN 81 MG ECTAB PO SCH (07:41)
[2016-04-07] MEDS: VENLAFAXINE HCL XR 75 MG CAPXR PO SCH (07:41)
[2016-04-07] MEDS: VENLAFAXINE HCL XR 150 MG CAPXR PO SCH (07:41)
[2016-04-07] MEDS: GABAPENTIN 100 MG CAP PO SCH (07:42)
[2016-04-07] MEDS: MULTIVITAMIN TAB PO SCH (07:42)
[2016-04-07] MEDS: PANTOprazole SOD 40 MG TAB PO SCH (07:42)
[2016-04-07] MEDS: MoRPHine SULFATE CR 15 MG TAB (MS CONTIN) PO SCH (07:42)
[2016-04-07] MEDS: POLYETHYLENE (MIRALAX) 17 GM PACK PO SCH (07:42)
[2016-04-07] MEDS: POTASSIUM CHLORIDE 20 MEQ TABCR PO SCH (07:42)
--- NOTE | 2016-04-07 09:16 | Pharmacy Progress Note ---
Pharmacy Antibiotic Prog Note Date of Service: Apr 07, 2016. Subjective: The patient is currently receiving The patient is currently on day # 7 of inpatient Vancomycin IV therapy (was on prior to admission for complicated MRSA knee replacement). Objective: Height (Feet): 5 Height (Inches): 2.00 Weight (Kilograms): 80.000 Levels: Item Value Date Time Random Vancomycin Level 17.1 mcg/ml 04/07/16 0514 Lab Results (24hrs): Laboratory Tests Test 04/07/16 05:14 BUN/Creatinine Ratio 27.6 Blood Urea Nitrogen 21 mg/dl Creatinine 0.75 mg/dl White Blood Count 2.87 K/uL Red Blood Count 3.70 M/uL Hemoglobin 9.4 g/dL Hematocrit 30.7 % Mean Corpuscular Volume 83.0 fL Mean Corpuscular Hemoglobin 25.4 pg Mean Corpuscular Hemoglobin Concent 30.6 g/dl Platelet Count 105 K/uL Mean Platelet Volume 10.2 fL Neutrophils (%) (Auto) 49.5 % Lymphocytes (%) (Auto) 35.5 % Monocytes (%) (Auto) 9.8 % Eosinophils (%) (Auto) 3.5 % Basophils (%) (Auto) 0.7 % Neutrophils # (Auto) 1.42 K/uL Lymphocytes # (Auto) 1.02 K/uL Monocytes # (Auto) 0.28 K/uL Eosinophils # (Auto) 0.10 K/uL Basophils # (Auto) 0.02 K/uL Assessment & Plan: Assessment * 60 y/o on IV Vancomycin for MRSA knee replacement. She also has HAP for which she is being treated with Levaquin (not a consult). Due to patient's unpredictable pharmacokinetics, Vancomycin is being dosed empirically based on random levels. * Plan is to complete 7 days of IV Vanco & Levaquin and then transition to PO Amoxicillin. * Random level this morning is therapeutic at 17.1mcg/ml --> pt will need re- dosed to maintain therapeutic levels Plan * Discussed plan with hospitalist, give one more dose of IV Vancomycin today and then will transition to PO amoxicillin tomorrow * Vancomycin 500mg IV x 1 dose now * Last dose of IV Levaquin this afternoon. * Pt to d/c after IV abx. Pharmacy will continue to follow and will adjust dose/frequency as necessary. Thank you
[2016-04-07] MEDS ORDERED: VANCOMYCIN INJ 500 MG in SODIUM CHLORIDE 0.9% 100ML 100 ML IV ONE (10:00)
--- NOTE | 2016-04-07 11:38 | Progress Note ---
Internal Med Progress Note Date of Service: Apr 07, 2016. Provider Documentation: SUBJECTIVE: The patient was seen and examined Cough and respiratory symptoms are better Clinically much better today Denies any symptoms Ready to be discharged OBJECTIVE: Vital Signs-as noted below Exam: General-No distress at rest Ambulating reasonably Eyes-normal ENT-normal Neck-supple Lungs-Coarse crackles bilaterally at the bases ,more on the right Heart-Regular,no murmur Abdomen-Benign,no masses,bowel sound present Extremities-No edema Rheumatoid changes in both the hands Neuro-AAOx3 Lab data as noted below. ASSESSMENT & PLAN: Suspected Gm Negative or MRSA pneumonia treated with IV Vanco and Levaquin in setting of HCAP -CTA chest shows multifocal pneumonia, no PE - sputum culture: Heavy normal maciel. flu: negative -blood cultures: coag neg staph not lugdunensis - continue Levaquin for now -has been on Vanco for R Knee MRSA infection (follows with ID [facility] Ireland, plan was to transition patient to Augmentin) -Appreciate ID input and recommendation -Continue IV Vanco and Levaquin for now for 7 days -oral transition to Amoxicillin -IV antibiotics are done for 7 days -ready to be discharged today after the last dose is done ELEVATED DDIMER - CTA chest negative for PE - Doppler US: no DVT H/O RIGHT KNEE REPLACEMENT INFECTION, H/O MRSA -continue Vancomycin via PICC line -continue [facility] pain regimen/bowel regimen -Per patient plan is to start Augmentin in a few weeks (already listed on Med Reconciliation) -follows with [facility] ID Dr. 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 Is high risk for VTE d/t immobilization and increased risk with RA. CODE STATUS: FULL CODE DISPO Discharge back to [facility] this afternoon Vital Signs: Date Time Temp Pulse Resp B/P Pulse Ox O2 Delivery O2 Flow Rate FiO2 04/07/16 08:00 Room Air 04/07/16 07:03 94 16 93 Room Air 04/07/16 06:58 36.6 98 17 95/70 94 Room Air 04/07/16 00:00 Room Air 04/06/16 23:34 36.6 95 18 122/80 95 Nasal Cannula 04/06/16 19:47 67 16 93 Room Air 04/06/16 16:00 94 Room Air 04/06/16 15:06 36.7 123 20 99/68 94 Room Air 04/06/16 14:20 114 18 93 Room Air Lab Results: Results Past 24 Hours Test 04/07/16 05:14 Range/Units White Blood Count 2.87 4.8-10.8 K/uL Red Blood Count 3.70 4.2-5.4 M/uL Hemoglobin 9.4 12.0-16.0 g/dL Hematocrit 30.7 37-47 % Mean Corpuscular Volume 83.0 80-100 fL Mean Corpuscular Hemoglobin 25.4 25-34 pg Mean Corpuscular Hemoglobin Concent 30.6 32-36 g/dl Platelet Count 105 130-400 K/uL Mean Platelet Volume 10.2 7.4-10.4 fL Neutrophils (%) (Auto) 49.5 % Lymphocytes (%) (Auto) 35.5 % Monocytes (%) (Auto) 9.8 % Eosinophils (%) (Auto) 3.5 % Basophils (%) (Auto) 0.7 % Neutrophils # (Auto) 1.42 1.4-6.5 K/uL Lymphocytes # (Auto) 1.02 1.2-3.4 K/uL Monocytes # (Auto) 0.28 0.11-0.59 K/uL Eosinophils # (Auto) 0.10 0-0.5 K/uL Basophils # (Auto) 0.02 0-0.2 K/uL RDW Standard Deviation 53.0 36.4-46.3 fL RDW Coefficient of Variation 17.4 11.5-14.5 % Immature Granulocyte % (Auto) 1.0 % Immature Granulocyte # (Auto) 0.03 0.00-0.02 K/uL Sodium Level 142 136-145 mmol/L Potassium Level 3.9 3.5-5.1 mmol/L Chloride Level 106 98-107 mmol/L Carbon Dioxide Level 28 21-32 mmol/L Anion Gap 8.0 3-11 mmol/L Blood Urea Nitrogen 21 7-18 mg/dl Creatinine 0.75 0.60-1.20 mg/dl Est Creatinine Clear Calc Drug Dose 76.2 ml/min Estimated GFR () 99.0 Estimated GFR (Non- 85.4 BUN/Creatinine Ratio 27.6 10-20 Random Glucose 87 70-99 mg/dl Calcium Level 8.0 8.5-10.1 mg/dl Random Vancomycin Level 17.1 mcg/ml
--- NOTE | 2016-04-07 13:26 | Infectious Disease Progress Nt ---
Progress Note Date of Service Apr 07, 2016. Subjective Pt evaluation today including: conversation w/ patient, physical exam, chart review, lab review, review of studies, conversation w/ cassandra consultant, review of inpatient medication list No new complaints. Cough and SOB improved. Remains afebrile. All Other Systems: Reviewed and Negative Medications Current Inpatient Medications Medications (Trade) Dose Ordered Sig/Poncho Route Start Time Stop Time Status Last Admin Dose Admin Acetaminophen (Tylenol Tab) 650 mg Q4H PRN PO 04/01/16 16:45 05/01/16 16:44 04/02/16 00:11 650 MG Ondansetron HCl (Zofran Inj) 4 mg Q6H PRN IV 04/01/16 16:45 05/01/16 16:44 Vancomycin HCl 1 ea 1 ea UD PRN N/A 04/01/16 17:37 04/07/16 23:59 Levofloxacin/Prmx (Levaquin / D5W/ Premixed D5W) 150 ml @ 100 mls/hr Q24H IV 04/02/16 14:00 04/07/16 23:59 04/06/16 13:48 100 MLS/HR Aspirin (Ecotrin Tab) 81 mg DAILY PO 04/02/16 09:00 05/02/16 08:59 04/07/16 07:41 81 MG Folic Acid (Folvite Tab) 1 mg DAILY PO 04/02/16 09:00 05/02/16 08:59 04/07/16 07:41 1 MG Gabapentin (Neurontin Cap) 200 mg BID PO 04/01/16 21:00 05/01/16 20:59 04/07/16 07:42 200 MG Hydroxyzine HCl (Vistaril Tab) 10 mg QID PRN PO 04/01/16 17:00 05/01/16 16:59 Multivitamins (Multivitamin Tab) 1 tab DAILY PO 04/02/16 09:00 05/02/16 08:59 04/07/16 07:42 1 TAB Oxycodone HCl (Roxicodone Immediate Rel Tab) 5 mg Q4H PRN PO 04/01/16 17:00 04/15/16 16:59 Pantoprazole Sodium (Protonix Tab) 40 mg DAILY PO 04/02/16 09:00 05/02/16 08:59 04/07/16 07:42 40 MG Potassium Chloride (Klor-Con Tab) 20 meq DAILY PO 04/02/16 09:00 05/02/16 08:59 04/07/16 07:42 20 MEQ Prednisone (PredniSONE TAB) 5 mg DAILY PO 04/02/16 09:00 05/02/16 08:59 04/07/16 07:42 5 MG Venlafaxine HCl (effeXOR EXTENDED REL CAP) 75 mg QAM PO 04/02/16 09:00 05/02/16 08:59 04/07/16 07:41 75 MG Venlafaxine HCl (effeXOR EXTENDED REL CAP) 150 mg QAM PO 04/02/16 09:00 05/02/16 08:59 04/07/16 07:41 150 MG Morphine Sulfate (Oramorph Sr Tab) 15 mg Q12 PO 04/01/16 21:00 05/01/16 20:59 04/07/16 07:42 15 MG Polyethylene (Miralax Powder Packet) 17 gm DAILY PO 04/02/16 09:00 05/02/16 08:59 04/07/16 07:42 17 GM Guaifenesin (Robitussin Sugar Free Syrup) 100 mg Q6H PRN PO 04/01/16 17:00 05/01/16 16:59 04/01/16 21:12 100 MG Albuterol (Ventolin Hfa Inhaler) 2 puffs Q4H PRN INH 04/01/16 17:15 05/01/16 17:14 Ipratropium [place] (Atrovent 0.02% 0.5MG/2.5ML Neb) 0.5 mg Q6RWA INH 04/02/16 15:00 05/02/16 14:59 04/07/16 07:03 0.5 MG Levalbuterol (Xopenex 1.25MG/ 0.5ML Neb) 1.25 mg Q6RWA INH 04/02/16 15:00 05/02/16 14:59 04/07/16 07:03 1.25 MG Objective Vital Signs Date Time Temp Pulse Resp B/P Pulse Ox O2 Delivery O2 Flow Rate FiO2 04/07/16 08:00 Room Air 04/07/16 07:03 94 16 93 Room Air 04/07/16 06:58 36.6 98 17 95/70 94 Room Air 04/07/16 00:00 Room Air 04/06/16 23:34 36.6 95 18 122/80 95 Nasal Cannula 04/06/16 19:47 67 16 93 Room Air 04/06/16 16:00 94 Room Air 04/06/16 15:06 36.7 123 20 99/68 94 Room Air 04/06/16 14:20 114 18 93 Room Air Physical Exam General Appearance: WD/WN, no apparent distress Eyes: normal inspection, sclerae normal ENT: normal ENT inspection, pharynx normal Neck: supple, no adenopathy, trachea midline Respiratory/Chest: chest non-tender, no respiratory distress, no accessory muscle use, + rales Cardiovascular: regular rate, rhythm, no gallop, no murmur Abdomen: normal bowel sounds, non tender, soft, no organomegaly Extremities: non-tender, no calf tenderness Neurologic/Psychiatric: alert, oriented x 3 Skin: normal color, warm/dry, no rash, + pertinent finding (right knee wound healing) Lymphatic: no adenopathy Laboratory Results Last 24 Hours Test 04/07/16 05:14 White Blood Count 2.87 K/uL Red Blood Count 3.70 M/uL Hemoglobin 9.4 g/dL Hematocrit 30.7 % Mean Corpuscular Volume 83.0 fL Mean Corpuscular Hemoglobin 25.4 pg Mean Corpuscular Hemoglobin Concent 30.6 g/dl Platelet Count 105 K/uL Mean Platelet Volume 10.2 fL Neutrophils (%) (Auto) 49.5 % Lymphocytes (%) (Auto) 35.5 % Monocytes (%) (Auto) 9.8 % Eosinophils (%) (Auto) 3.5 % Basophils (%) (Auto) 0.7 % Neutrophils # (Auto) 1.42 K/uL Lymphocytes # (Auto) 1.02 K/uL Monocytes # (Auto) 0.28 K/uL Eosinophils # (Auto) 0.10 K/uL Basophils # (Auto) 0.02 K/uL RDW Standard Deviation 53.0 fL RDW Coefficient of Variation 17.4 % Immature Granulocyte % (Auto) 1.0 % Immature Granulocyte # (Auto) 0.03 K/uL Sodium Level 142 mmol/L Potassium Level 3.9 mmol/L Chloride Level 106 mmol/L Carbon Dioxide Level 28 mmol/L Anion Gap 8.0 mmol/L Blood Urea Nitrogen 21 mg/dl Creatinine 0.75 mg/dl Est Creatinine Clear Calc Drug Dose 76.2 ml/min Estimated GFR () 99.0 Estimated GFR (Non- 85.4 BUN/Creatinine Ratio 27.6 Random Glucose 87 mg/dl Calcium Level 8.0 mg/dl Random Vancomycin Level 17.1 mcg/ml Assessment and Plan 60 yo female with chronically infected right TKA, now with spacer, most recent pathogen unknown, completing IV vancomycin therapy, also on chronic prednisone for RA, now with pneumonia clinically responding to levofloxacin. Would continue patient on both antibiotics, with length likely in the range of 7 days. There are then plans to transition patient to oral amoxicillin once back at her nursing facility. Will defer outpatient follow-up to Dr. Johnson at [facility].
[2016-04-07] MEDS: LEVOFLOXACIN / D5W 750 MG in PREMIXED IN D5W 150 ML IV SCH (13:30)
[2016-04-07 14:39] VITALS: PULSE 116; O2SAT 96
[2016-04-07] MEDS ORDERED: OXYC1TAB3 PO (15:12)
[2016-04-07] MEDS ORDERED: MORP30TA23 PO (15:12)
--- NOTE | 2016-04-07 15:15 | Discharge Instructions ---
Discharge Instructions Admission Reason for Admission: Multifocal Pneumonia Discharge Discharge Diagnosis / Problem: Pneumonia Discharge Goals Goal(s): Prevent Disease Progression Activity Recommendations Activity Level: Assistance Required Therapies: Physical Therapy, Occupational Therapy . Additional Information Patient informed of condition: Yes Advance Directives: No DNR: No Level of Care: Skilled Communicable Disease: No Prognosis: Stable Oxygen at (LPM): 2 liters/min via NC as needed Huang Catheter: No Instructions / Follow-Up Instructions / Follow-Up As per diana aviles provider.Will need to have follow up with ID specialist in [place]. Current Hospital Diet Patient's current hospital diet: AHA Diet (Heart Healthy) Discharge Diet Recommended Diet: AHA Diet (Heart Healthy) Pending Studies Studies pending at discharge: no Medical Emergencies . Who to Call and When: Medical Emergencies: If at any time you feel your situation is an emergency, please call 911 immediately. . Non-Emergent Contact Non-Emergency issues call your: Primary Care Provider . 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 "Provider Documentation" section prepared by Joi Carrillo. Core Measure Problem Core Measures: None
[2016-04-07 15:31] VITALS: BP 104/75; PULSE 122; TEMP 36.5; O2SAT 96
[2016-04-07 16:03] VITALS: BP 104/75; PULSE 122; TEMP 36.5; O2SAT 96
--- NOTE | 2016-04-08 09:57 | Discharge Summary ---
Discharge Summary Date of Service Apr 08, 2016. Discharge Summary Admission Date: Apr 01, 2016 at 16:42 Discharge Date: Apr 07, 2016 Discharge Disposition: detention facility Principal Diagnosis: Pneumonia Secondary Diagnoses/Problems: Please see H&P Consultations: ID Medication Reconciliation Continued Medications: Acetaminophen (Tylenol) 325 Mg Tab 650 MG PO Q6 PRN for Pain, TAB Albuterol (Ventolin Hfa) 60 Puffs/5400 Mcg Aers 2 PUFFS INH Q4H PRN for SOB/Wheezing Amoxicillin & Pot Clavulanate (Augmentin 875-125 mg) 1 Tab Tab 1 TAB PO BID, #14 TAB Aspirin (Aspirin Ec) 81 Mg Tab 81 MG PO DAILY Folic Acid (Folvite) 1 Mg Tab 1 MG PO DAILY, TAB Gabapentin (Gabapentin) 100 Mg Cap 200 MG PO BID Hydroxyzine HCl (Hydroxyzine HCl) 10 Mg Tab 10 MG PO QID PRN for Itching Morphine Sulfate (Ms Contin) 30 Mg Tabcr 15 MG PO Q12 for 7 Days, #14 TAB (This prescription has been renewed) Multivitamin (Multivitamin) Tab 1 TAB PO DAILY, TAB Oxycodone Ir (Roxicodone Ir) 5 Mg Tab 5 MG PO Q4H PRN for Severe Pain for 7 Days, #28 TAB (This prescription has been renewed) Pantoprazole (Protonix) 40 Mg Tab 40 MG PO DAILY, #30 TAB Polyethylene Glycol 3350 (Miralax) 1 Pow Pow 17 GM PO DAILY, GM Potassium Chloride (Klor-Con M20) 20 Meq Tabcr 20 MEQ PO DAILY Prednisone (Prednisone) 5 Mg Tab 5 MG PO DIRECTED, TAB Venlafaxine Hcl (Venlafaxine Hcl Er) 150 Mg Tab 150 MG PO QAM Venlafaxine Hcl (Effexor Xr) 75 Mg Cap 1 CAP PO QAM for 30 Days, #30 CAP Admission Information HPI (per Admitting provider): Patient seen and examined. 60 year old female with PMHx of Asthma, HIT, GERD/ Gomez's esophagus, H/O MRSA knee replacement infection currently on Vancomycin , RA on prednisone and other problems listed below presents to the ED complaining of left chest pain x 3 days. Patient reports that it started after taking coughing. She reports she has been coughing for 3-4 days with a green sputum production. She denies associated symptoms including fevers, chills, nasal congestion, SOB, nausea, vomiting, diarrhea, dysuria, calf pain and edema. Patient is currently at [facility] for rehab. She had a complicated RTKA history with MRSA infection requiring hardware removal and spacer placement. She is currently on Vancomycin and is followed by ID at [facility]. Per patient the plan is to start Augmentin chronically in a few weeks. In the ED patient is mildly tachycardic, Ddimer is elevated. CTA chest is negative for PE but shows multifocal pneumonia. There is no leukocytosis. Pharmacy is consulted who suggested levaquin in addition to the patient's current vancomycin. Patient will be admitted for further workup and treatment. Past Medical/Surgical History Medical Problems: (1) Asthma Status: Chronic (2) Gomez's esophagus Status: Chronic (3) Depression Status: Chronic (4) Felty's syndrome Status: Chronic (5) History of heparin-induced thrombocytopenia Status: Chronic (6) Hx MRSA infection Status: Chronic (7) Rheumatoid arthritis Status: Chronic (8) Venous insufficiency Status: Chronic Surgical Problems: (1) H/O esophagogastroduodenoscopy Permanent Comment: 08/27/2009 mild schatzki's ring, dilated, small hiatal hernia , mild nodularity of mucosa in distal esophagus Status: Chronic (2) Hx of breast biopsy Status: Chronic (3) Hx of total knee replacement Status: Chronic (4) S/P appendectomy Status: Chronic (5) S/p thorascopic sugery Permanent Comment: Right video assisted thorascopic surgery, evacuation of empyema with decortication Status: Chronic (6) Sp placement antibiotic spacer in knee Status: Chronic Family History FH: cancer SISTER (ovarian [place] age 49) Heart disease FATHER ( [place] age 67) Social History Smoking Status: Former Smoker Alcohol Use: none Drug Use: none Marital Status: Housing status: halfway Occupational Status: disabled Immunizations History of Influenza Vaccine: No History of Tetanus Vaccine?: Unknown History of Pneumococcal: Yes Pneumococcal Date: Nov 20, 2009 History of Hepatitis B Vaccine: No Multi-Drug Resistant Organisms History of MDRO: Yes Type of MDRO: MRSA Allergies Coded Allergies: Sulfa Antibiotics (Verified Allergy, Intermediate, USED CELEBREX IN PAST, 04/01/16) Adhesives (Verified Allergy, Mild, RASH, 04/01/16) Daptomycin (Verified Allergy, Unknown, RASH, 04/01/16) Heparin (Verified Allergy, Unknown, RASH, 04/01/16) PT VERBALIZED Note: Heparin platelet antibody (+) from 08/08/14 thought the reflex SHAISTA was (-) from 08/08/14. aj Home Medications Scheduled Amoxicillin & Pot Clavulanate (Augmentin 875-125 mg), 1 TAB PO BID Aspirin (Aspirin Ec), 81 MG PO DAILY Folic Acid (Folvite), 1 MG PO DAILY Gabapentin (Gabapentin), 200 MG PO BID Morphine Sulfate (Ms Contin), 15 MG PO Q12 Multivitamin (Multivitamin), 1 TAB PO DAILY Pantoprazole (Protonix), 40 MG PO DAILY Polyethylene Glycol 3350 (Miralax), 17 GM PO DAILY Potassium Chloride (Klor-Con M20), 20 MEQ PO DAILY Prednisone (Prednisone), 5 MG PO DIRECTED Venlafaxine Hcl (Venlafaxine Hcl Er), 150 MG PO QAM Venlafaxine Hcl (Effexor Xr), 1 CAP PO QAM Scheduled PRN Acetaminophen (Tylenol), 650 MG PO Q6 PRN for Pain Albuterol (Ventolin Hfa), 2 PUFFS INH Q4H PRN for SOB/Wheezing Hydroxyzine HCl (Hydroxyzine HCl), 10 MG PO QID PRN for Itching Oxycodone Ir (Roxicodone Ir), 5 MG PO Q4H PRN for Severe Pain Review of Systems See above for pertinent positives & negatives. A total of 10 systems reviewed and were otherwise negative. Physical Exam Vital Signs Date Time Temp Pulse Resp B/P Pulse Ox O2 Delivery O2 Flow Rate FiO2 04/01/16 15:36 99 30 97 04/01/16 15:28 123/83 04/01/16 15:21 99 23 97 04/01/16 15:18 111/85 04/01/16 15:06 100 24 98 04/01/16 14:51 99 24 98 04/01/16 14:43 91/70 04/01/16 14:36 99 23 98 04/01/16 14:31 112/60 04/01/16 14:28 112/60 04/01/16 14:21 98 22 04/01/16 14:13 115/75 04/01/16 14:06 104 16 04/01/16 13:58 110/69 04/01/16 13:51 105 26 98 04/01/16 13:44 103 04/01/16 13:43 116/73 04/01/16 13:36 104 25 98 04/01/16 13:34 105 24 132/75 99 04/01/16 13:34 132/75 04/01/16 12:51 98 21 98 04/01/16 12:46 97 20 98 04/01/16 12:43 104/75 04/01/16 12:31 99 22 98 04/01/16 12:28 126/88 04/01/16 12:16 102 24 98 04/01/16 12:13 129/77 04/01/16 12:01 102 23 96 04/01/16 11:58 115/74 04/01/16 11:46 105 24 97 04/01/16 11:43 107/63 04/01/16 11:41 115/67 04/01/16 11:31 109 22 04/01/16 11:16 111 13 04/01/16 11:10 94 Room Air 04/01/16 11:06 36.6 112 20 107/75 94 Room Air 04/01/16 11:01 94 Room Air 04/01/16 11:01 112 19 94 04/01/16 10:59 111 04/01/16 10:55 107/75 General Appearance: + pertinent finding (Pleasant WD/WN 60 year old female lying in bed in NAD ) Head: normocephalic, atraumatic Eyes: PERRL, EOMI, sclerae normal ENT: hearing grossly normal, pharynx normal Neck: supple, no JVD Respiratory/Chest: no respiratory distress, no accessory muscle use, + crackles (diffuse ), + pertinent finding (tenderness to palpation left chest) Cardiovascular: regular rate, rhythm, no edema, no gallop, no JVD, no murmur, normal peripheral pulses Abdomen/GI: normal bowel sounds, non tender, soft Back: normal inspection, no muscle spasm Extremities/Musculoskelatal: no calf tenderness, normal capillary refill, no pedal edema, + pertinent finding (brace intact to right leg, rheumatological changes noted to hands ) Neurologic/Psych: alert, oriented x 3, + pertinent finding (no focal deficits on gross exam ) Skin: normal color, warm/dry, no rash Lymphatic: no adenopathy Diagnostics Laboratory Results Results Past 24 Hours Test 04/01/16 11:14 04/01/16 11:30 04/01/16 11:46 Range/Units Creatine Kinase MB Ratio 1.8 0-3.0 White Blood Count 4.62 4.8-10.8 K/uL Red Blood Count 4.13 4.2-5.4 M/uL Hemoglobin 10.6 12.0-16.0 g/dL Hematocrit 34.4 37-47 % Mean Corpuscular Volume 83.3 80-100 fL Mean Corpuscular Hemoglobin 25.7 25-34 pg Mean Corpuscular Hemoglobin Concent 30.8 32-36 g/dl Platelet Count 93 130-400 K/uL Mean Platelet Volume 10.2 7.4-10.4 fL Neutrophils (%) (Auto) 70.6 % Lymphocytes (%) (Auto) 15.2 % Monocytes (%) (Auto) 13.0 % Eosinophils (%) (Auto) 0.6 % Basophils (%) (Auto) 0.2 % Neutrophils # (Auto) 3.26 1.4-6.5 K/uL Lymphocytes # (Auto) 0.70 1.2-3.4 K/uL Monocytes # (Auto) 0.60 0.11-0.59 K/uL Eosinophils # (Auto) 0.03 0-0.5 K/uL Basophils # (Auto) 0.01 0-0.2 K/uL RDW Standard Deviation 54.5 36.4-46.3 fL RDW Coefficient of Variation 17.8 11.5-14.5 % Immature Granulocyte % (Auto) 0.4 % Immature Granulocyte # (Auto) 0.02 0.00-0.02 K/uL Prothrombin Time 12.5 9.0-12.0 SECONDS Prothromb Time International Ratio 1.2 0.9-1.1 Activated Partial Thromboplast Time 31.1 21.0-31.0 SECONDS Partial Thromboplastin Ratio 1.2 Sodium Level 138 136-145 mmol/L Potassium Level 4.0 3.5-5.1 mmol/L Chloride Level 104 98-107 mmol/L Carbon Dioxide Level 25 21-32 mmol/L Anion Gap 9.0 3-11 mmol/L Blood Urea Nitrogen 15 7-18 mg/dl Creatinine 0.85 0.60-1.20 mg/dl Est Creatinine Clear Calc Drug Dose 67.2 ml/min Estimated GFR () 85.1 Estimated GFR (Non- 73.4 BUN/Creatinine Ratio 17.7 10-20 Random Glucose 120 70-99 mg/dl Calcium Level 8.1 8.5-10.1 mg/dl Total Bilirubin 0.6 0.2-1 mg/dl Direct Bilirubin 0.2 0-0.2 mg/dl Aspartate Amino Transf (AST/SGOT) 17 15-37 U/L Alanine Aminotransferase (ALT/SGPT) 22 12-78 U/L Alkaline Phosphatase 147 45-117 U/L Total Creatine Kinase 33 26-192 U/L Creatine Kinase MB 0.6 0.5-3.6 ng/ml Total Protein 7.7 6.4-8.2 gm/dl Albumin 2.8 3.4-5.0 gm/dl Lipase 176 73-393 U/L Bedside D-Dimer > 450 0-450 ng/mlFEU Bedside Troponin I 0.000 0-0.045 ng/ml [id number] Natriuretic Peptide 234 0-900 pg/ml Microbiology Results 04/01/16 Blood Culture, Received Pending 04/01/16 Blood Culture, Received Pending Diagnostic Radiology CTA CHEST Per radiologist read; IMPRESSION: 1. No evidence for pulmonary embolus. 2. Scattered irregular and nodular airspace opacities seen within the right upper lobe, right lower lobe, and lingula. This favors a multifocal pneumonia. One to 2 month chest x-ray follow up is recommended to ensure resolution. 3. Trace left pleural effusion. 4. Mild bronchiectasis. 5. Severe splenomegaly, unchanged. 6. Mildly enlarged anterior diaphragmatic lymph nodes are stable. Borderline enlarged mediastinal and right hilar lymph nodes are slightly improved. CXR Per radiologist read: IMPRESSION: 1. Scattered right lung airspace opacities and left basilar opacity. The findings could reflect pneumonia or atelectasis. Radiographic follow-up is recommended. 2. Diminished lung volumes. EKG Sinus Tachycardia 107,BPM QTc 440 Impression Assessment and Plan 60 year old female from [facility] presents with productive cough, pleuritic chest pain [facility] PNEUMONIA -Admit to med/surg -CTA chest shows multifocal pneumonia, no PE -no leukocytosis, afebrile. BP stable -empirically treat with vancomycin and Levaquin -blood cultures, sputum culture pending -Check PCR flu -prn cough syrup -oxygen prn -CBC, PRP, Mg daily ELEVATED DDIMER -CTA chest negative for PE -high risk for VTE -check BLLE doppler US H/O RIGHT KNEE REPLACEMENT INFECTION, H/O MRSA -continue Vancomycin- pharmacy consulted for dosing -Contact precautions -continue [facility] pain regimen/bowel regimen -Per patient plan is to start Augmentin in a few weeks (already listed on Med Reconciliation) RHEUMATOID ARTHRITIS/FELTY'S SYNDROME -continue Prednisone, folic acid -no indication to stress dose at this time GERD/BAHMAN'S ESOPHAGUS -continue PPI DEPRESSION -continue Effexor PANCYTOPENIA -follow CBC daily ASTHMA -continue home inhaler DVT PROPHYLAXIS: continue Aspirin 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 Is high risk for VTE d/t immobilization and increased risk with RA. Defer anticoagulation to attending CODE STATUS: FULL CODE DISPO:In my clinical judgment this beneficiary meets acute admission criteria, established by [facility], that includes being hospitalized through two midnights. Discharge planning eval placed Patient seen in collaboration with Dr. Aguilar VTE Prophylaxis VTE Risk Assessment Done? Y/N: Yes Risk Level: High Given or contraindicated: Other Anticoagulation (aspirin) Note ATTENDING ADDENDUM Record reviewed. Patient interviewed and examined. Care coordinated with Arlin Cornejo PA-C. Please refer to her documentation for patient's history. Briefly, 60 YO F with Hx steroid dependent RA, MRSA, septic arthritis. Recent revision right TKA. Receiving IV vanco and PT / OT at [facility]. Presented to ED with cough and SOB. EXAM: General- no acute distress VS- as noted HEENT- [] Neck- no JVD Lungs- scattered rhonchi Heart- RRR Abdomen- + BS, soft, nontender Extremities- RLE wrapped with NICOLE bandages; knee immobilizer applied Neuro- alert DATA: WBC 4620. Influenza A/B PCR negative. Lab studies as noted. CXR- scattered densities. CT chest- negative for pulmonary embolism; scattered opacities RUL, RLL, lingula consistent with pneumonia. ASSESSMENT AND PLAN: Healthcare acquired pneumonia. Check blood cultures and sputum culture. Already on IV vancomycin for MRSA septic arthritis. Add levofloxacin. Continue chronic prednisone for RA. History of HIT, so no heparin or enoxaparin. Can't use SCD on RLE due to immobilizer. Continue aspirin. Please refer to ARELY Cornejo's documentation for discussion of other issues. Kameron Aguilar MD . Physical Exam (per Admitting): General Appearance: + pertinent finding (Pleasant WD/WN 60 year old female lying in bed in NAD ) Head: normocephalic, atraumatic Eyes: PERRL, EOMI, sclerae normal ENT: hearing grossly normal, pharynx normal Neck: supple, no JVD Respiratory/Chest: no respiratory distress, no accessory muscle use, + crackles (diffuse ), + pertinent finding (tenderness to palpation left chest) Cardiovascular: regular rate, rhythm, no edema, no gallop, no JVD, no murmur , normal peripheral pulses Abdomen/GI: normal bowel sounds, non tender, soft Back: normal inspection, no muscle spasm Extremities/Musculoskelatal: no calf tenderness, normal capillary refill, no pedal edema, + pertinent finding (brace intact to right leg, rheumatological changes noted to hands ) Neurologic/Psych: alert, oriented x 3, + pertinent finding (no focal deficits on gross exam ) Skin: normal color, warm/dry, no rash Lymphatic: no adenopathy Hospital Course Suspected Gm Negative or MRSA pneumonia treated with IV Vanco and Levaquin in setting of HCAP -CTA chest shows multifocal pneumonia, no PE - sputum culture: Heavy normal maciel. flu: negative -blood cultures: coag neg staph not lugdunensis - continue Levaquin for now -has been on Vanco for R Knee MRSA infection (follows with ID Fozia [place], plan was to transition patient to Augmentin) -Appreciate ID input and recommendation -Continue IV Vanco and Levaquin for now for 7 days -oral transition to Amoxicillin -IV antibiotics are done for 7 days -ready to be discharged today after the last dose is done ELEVATED DDIMER - CTA chest negative for PE - Doppler US: no DVT H/O RIGHT KNEE REPLACEMENT INFECTION, H/O MRSA -continue Vancomycin via PICC line -continue [place] pain regimen/bowel regimen -Per patient plan is to start Augmentin in a few weeks (already listed on Med Reconciliation) -follows with [facility] ID Dr. [place] -will need to have follow up appointment with Dr Ierland sooner RHEUMATOID ARTHRITIS/FELTY'S SYNDROME -continue Prednisone, folic acid -no acute issue GERD/BAHMAN'S ESOPHAGUS -continue PPI DEPRESSION -continue Effexor PANCYTOPENIA Not any worse ASTHMA No acute Exacerbation Has been on Nebs DVT PROPHYLAXIS: continue Aspirin 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 Is high risk for VTE d/t immobilization and increased risk with RA. CODE STATUS: FULL CODE DISPO Discharge back to [facility] this afternoon Total time spent on discharge = 35 minutes This includes examination of the patient, discharge planning, medication reconciliation, and communication with other providers. Discharge Instructions Admission Reason for Admission: Multifocal Pneumonia Discharge Discharge Diagnosis / Problem: Pneumonia Discharge Goals Goal(s): Prevent Disease Progression Activity Recommendations Activity Level: Assistance Required Therapies: Physical Therapy, Occupational Therapy . Additional Information Patient informed of condition: Yes Advance Directives: No DNR: No Level of Care: Skilled Communicable Disease: No Prognosis: Stable Oxygen at (LPM): 2 liters/min via NC as needed Huang Catheter: No Instructions / Follow-Up Instructions / Follow-Up As per [facility] provider.Will need to have follow up with ID specialist in [place]. Current Hospital Diet Patient's current hospital diet: AHA Diet (Heart Healthy) Discharge Diet Recommended Diet: AHA Diet (Heart Healthy) Pending Studies Studies pending at discharge: no Medical Emergencies . Who to Call and When: Medical Emergencies: If at any time you feel your situation is an emergency, please call 911 immediately. . Non-Emergent Contact Non-Emergency issues call your: Primary Care Provider . 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 "Provider Documentation" section prepared by Joi Carrillo. Core Measure Problem Core Measures: None <Electronically signed by Jio Carrillo M.D.> Signed: 04/07/16 1129 Additional Copies To Ramesh Aburto M.D.
== END 2016-04-07 16:53 | DRG 178 ==
LOC: ENRESERVTM → ENRESERVDT → EDBD 10:46 → C.EDC 10:47 → C.MS2W 16:42
PROVIDERS: ADMIT Hospitalist; ATTEND Internal Medicine
DX: J15.212 Pneumonia due to Methicillin resistant Staphylococcus aureus (principal); D61.818 Other pancytopenia; Z96.651 Presence of right artificial knee joint; J45.909 Unspecified asthma, uncomplicated; K21.9 Gastro-esophageal reflux disease without esophagitis; Z86.14 Personal history of Methicillin resistant Staphylococcus aureus infection; F32.9 Major depressive disorder, single episode, unspecified; M06.9 Rheumatoid arthritis, unspecified; M05.00 Felty's syndrome, unspecified site; I73.9 Peripheral vascular disease, unspecified; Z90.49 Acquired absence of other specified parts of digestive tract; Z82.49 Family history of ischemic heart disease and other diseases of the circulatory system; Z80.41 Family history of malignant neoplasm of ovary; Z87.891 Personal history of nicotine dependence; Z88.2 Allergy status to sulfonamides; Z91.048 Other nonmedicinal substance allergy status; Z88.8 Allergy status to other drugs, medicaments and biological substances; Z79.82 Long term (current) use of aspirin; Z79.899 Other long term (current) drug therapy; Y95 Nosocomial condition; Z79.52 Long term (current) use of systemic steroids

== ENCOUNTER 2017-05-29 09:24 | Emergency (ER) | payer OTHER ==
[~2017-05-29] VITALS: Ht 157.5 cm; Wt 82.0 kg
[~2017-05-29 09:24] MED LIST changes: +AMOX500C3 PO; -DOCU100C31 PO; -FOLI1TAB7 PO; -METH2.5T PO; -MOME220A3 INH; -MORP30TA23 PO; -MUPIOIN4 NAE; -OXYC-106 PO; +OXYC1TAB3 PO; -PANT40TA PO; -PRED-301 PO; +PRVHFAIN INH; -VENL75CA PO
[2017-05-29 09:28] VITALS: TEMP 36.6; Ht 157.5 cm; Wt 82.0 kg
[2017-05-29] MEDS ORDERED: METH2.5T PO (10:10)
[2017-05-29 10:29] VITALS: O2SAT 96
--- NOTE | 2017-05-29 10:38 | DIAGNOSTIC IMAGING REPORT ---
CHEST ONE VIEW PORTABLE CLINICAL HISTORY: Atypical chest pain COMPARISON STUDY: April 01, 2016 FINDINGS: The heart is normal in size. There is been marked improvement in the previous identified right upper lung zone, and left lower lobe airspace opacities. The right-sided PICC catheter has been removed. There is minor blunting of the left lateral costophrenic angle. There is no failure.[ IMPRESSION: Near-complete interval resolution of the previous identified bilateral airspace opacities Electronically signed by: Jalen Ames M.D. 05/29/2017 10:37 AM Dictated Date/Time: 05/29/2017 10:36 AM
[2017-05-29 10:49] LABS: CALCIUM 8.4 mg/dl (8.5-10.1); CREATININE 0.66 mg/dl (0.60-1.20); POTASSIUM 3.7 mmol/L (3.5-5.1)
[2017-05-29 11:05] LABS: BASO % 0.4 %; BASO ABS # 0.01 K/uL (0-0.2); EOS % 4.2 %; EOS ABS # 0.11 K/uL (0-0.5); HEMATOCRIT 36.7 % (37-47); HEMOGLOBIN 11.6 g/dL (12.0-16.0); LYMPH % 29.1 %; LYMPH ABS # 0.77 K/uL (1.2-3.4); MEAN CORPUSCULAR HEMOGLOBIN 26.9 pg (25-34); MEAN CORPUSCULAR HGB CONC 31.6 g/dl (32-36); MEAN PLATELET VOLUME 9.9 fL (7.4-10.4); MONO % 9.1 %; MONO ABS # 0.24 K/uL (0.11-0.59); NEUT % 57.2 %; NEUT ABS # 1.52 K/uL (1.4-6.5); PLATELET COUNT 85 K/uL (130-400); RED CELL DISTRIBUTION WIDTH CV 17.7 % (11.5-14.5); RED CELL DISTRIBUTION WIDTH SD 55.3 fL (36.4-46.3); WHITE BLOOD COUNT 2.65 K/uL (4.8-10.8)
[2017-05-29] MEDS ORDERED: OXYC1TAB3 PO (11:21)
--- NOTE | 2017-05-29 11:26 | DIAGNOSTIC IMAGING REPORT ---
CT neck without intravenous contrast. HISTORY: throat constriction. Hoarseness. EVAL FOR AIRWAY OBST, MASS TECHNIQUE: Multiaxial CT images of the neck were performed without the use of intravenous contrast. COMPARISON STUDY: None. FINDINGS: The visualized brain parenchyma is unremarkable. Old posttraumatic/postoperative changes within the left orbit. The epiglottis is normal in thickness. Heterogeneous thyroid gland. The parotid and submandibular glands are symmetric. There is abnormal soft tissue within the right lateral retropharyngeal space best seen on image 143. This measures 2.7 x 1.6 cm. This is slightly hypodense. There is no gas associated with this abnormality. This results in mild mass effect along the airway. However, the airway remains widely patent. This is adjacent to the internal carotid artery. No prevertebral soft tissue edema. No enlarged cervical lymph nodes. Bilateral superior ventricular lymph nodes are nearly symmetric. Dominant lymph node on the left measures 11 x 7 mm. Therefore, these do not meet CT criteria for pathologic involvement. The left is clear. Patchy groundglass and nodular airspace opacities within the right upper lobe posteriorly. Mild right posterior pleural thickening. The trachea is patent. No suspicious lytic or blastic osseous lesions. The paranasal sinuses and mastoid air cells are clear. Moderate narrowing at C2 and C3 levels. This is likely due to combination of degenerative and old posttraumatic changes. IMPRESSION: 1. A 2.7 x 1.6 cm area of abnormal soft tissue within the right lateral retropharyngeal space. This is difficult to characterize without contrast and could represent a mass or vascular abnormality. Dedicated neck CT with intravenous contrast is recommended for further evaluation. 2. Patchy groundglass and nodular airspace opacities within the right upper lobe posteriorly. This may represent a pneumonia. Electronically signed by: Satinder Fishman M.D. 05/29/2017 11:24 AM Dictated Date/Time: 05/29/2017 11:13 AM
[2017-05-29] MEDS ORDERED: NRN100 PO (11:30)
[2017-05-29] MEDS ORDERED: ACET-1311 PO (11:30)
[2017-05-29] MEDS ORDERED: OPTIRAY 320 IV PRN (11:45)
--- NOTE | 2017-05-29 13:20 | DIAGNOSTIC IMAGING REPORT ---
SOFT TISSUE NECK WITH CLINICAL HISTORY: 61 years-old Female presenting with eval for rt retropharyngeal mass. TECHNIQUE: Multidetector CT of the neck was performed after the administration of intravenous contrast. IV contrast: 86 mL of Optiray 320. A dose lowering technique was used consistent with the principles of ALARA (as low as reasonably achievable). COMPARISON: Noncontrast CT of the neck performed earlier the same day. CT DOSE (mGy.cm): The estimated cumulative dose is 361.72 mGycm. FINDINGS: Clinic Manager topogram: Unremarkable. The previously identified right cervical mass is located in the right poststyloid parapharyngeal space and measures 2.3 x 1.8 cm in maximal axial dimensions and approximately 3.6 cm in craniocaudal dimension. There is a rim of peripheral enhancement. Centrally the mass does not exhibit significant enhancement. The mass splays the right internal and external carotid arteries. Apart from this mass, no evidence of cervical lymphadenopathy. Parotid, some in the mother, and thyroid glands normal. Vessels patent. No evidence of aneurysm. Limited intracranial evaluation within normal limits. Orbits normal. Postsurgical changes of the left infraorbital rim. Degenerative changes of the cervical spine. 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 The relatively hypovascular appearance may be due to the phase of contrast though differential considerations include a pathologically enlarged lymph node or nerve sheath tumor. Electronically signed by: Karson Cavanaugh M.D. 05/29/2017 1:19 PM Dictated Date/Time: 05/29/2017 1:11 PM
[2017-05-29] MEDS ORDERED: AMOXICILLIN/CLAVULANATE TAB 875 MG TAB PO ONE (14:45)
[2017-05-29] MEDS ORDERED: AMOX875T PO (14:50)
[2017-05-29] MEDS ORDERED: PRED50TA PO (14:50)
--- NOTE | 2017-05-29 14:55 | EMERGENCY ROOM VISIT NOTE ---
History Report prepared by Dixon: Johann Walsh Under the Supervision of: Dr. Timur Agustin M.D. First contact with patient: 09:46 Chief Complaint: SHORTNESS OF BREATH Stated Complaint: TROUBLE BREATHING,THROAT CONSTRICTED History of Present Illness The patient is a 61 year old female who presents to the Emergency Room with complaints of constant shortness of breath beginning a few days ago. She also complains of dry mouth, hoarse voice, and difficulty swallowing. She states "it feels like there is something stuck in my throat". The patient states that she is able to breath through her nose better than through her mouth. She denies any chest pain, back pain, vomiting, diarrhea, sore throat, cough, runny nose, or fevers. She denies any new medications. The patient notes that she has been upset and crying a lot because her fiance recently . She also notes that she had a breast biopsy done in the past, and had some lymph nodes removed from her left arm (she was diagnosed with stage 0 breast cancer - received radiation treatments). The patient has a history of GERD, and Gomez's Esophagus. She has a recent history of infected knee replacements. She states that she currently has a mass in her throat (unsure of specific location) that is being monitored, but not treated currently. Source of History: patient Onset: A few days ago Quality: other (shortness of breath) Timing: constant Modifying Factors (Relieving): other (breathing through nose) Associated Symptoms: No fevers, No sorethroat, No cough, No chest pain, No vomiting, No back pain, No diarrhea Note: The patient also complains of dry mouth, hoarse voice, and difficulty swallowing. She denies runny nose. Review of Systems See HPI for pertinent positives & negatives. A total of 10 systems reviewed and were otherwise negative. 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 Nurse's notes were reviewed and I agree with. Family History FH: cancer SISTER (ovarian [place] age 49) Heart disease FATHER ( [place] age 67) Social History Smoking Status: Never Smoker Drug Use: none Marital Status: Housing Status: lives with family Occupation Status: disabled Current/Historical Medications Scheduled Amoxicillin & Pot Clavulanate (Augmentin 875-125 mg), 875 MG PO BID Folic Acid (Folvite), 1 MG PO DAILY Methotrexate (Methotrexate), 4 TAB PO WK Pantoprazole (Protonix), 40 MG PO DAILY Prednisone (Prednisone), 5 MG PO DAILY Prednisone (Prednisone), 50 MG PO DAILY Venlafaxine Hcl (Venlafaxine Hcl Er), 150 MG PO HS Venlafaxine Hcl (Effexor Xr), 75 MG PO HS Scheduled PRN Acetaminophen (Tylenol), 650 MG PO Q6 PRN for Pain Gabapentin (Gabapentin), 200 MG PO BID PRN for Itching Oxycodone Ir (Roxicodone Ir), 5 MG PO Q6H PRN for Pain Allergies Coded Allergies: Sulfa Antibiotics (Verified Allergy, Intermediate, USED CELEBREX IN PAST, 05/29/17) Adhesives (Verified Allergy, Mild, RASH, 05/29/17) Daptomycin (Verified Allergy, Unknown, RASH, 05/29/17) Heparin (Verified Allergy, Unknown, RASH, 05/29/17) PT VERBALIZED Note: Heparin platelet antibody (+) from 08/08/14 thought the reflex SHAISTA was (-) from 08/08/14. aj Physical Exam Vital Signs Date Time Temp Pulse Resp B/P (MAP) Pulse Ox O2 Delivery O2 Flow Rate FiO2 05/29/17 15:04 97 18 128/92 100 Room Air 05/29/17 13:52 105 05/29/17 13:27 97 18 105/67 97 Room Air 05/29/17 11:19 96 20 102/89 98 Nasal Cannula 2.0 05/29/17 11:19 95 05/29/17 10:31 98 20 130/85 97 Room Air 05/29/17 10:29 96 Room Air 05/29/17 09:28 36.6 98 22 145/85 99 Room Air Physical Exam General: Non-ill appearing older female in no acute distress. HEENT: Normal cephalic atraumatic. Pupils are equal round and reactive to light. Extraocular movements are intact. Oropharynx is pink with moist mucous membranes. No David's angina. Posterior oropharynx wide open. No stridor. Mildly hoarse with speech. No swelling of the mouth lips or tongue. Neck: Supple with a midline trachea. No meningeal signs or stiffness, no JVD or bruits. No Stridor. Chest: Clear to auscultation bilaterally. No wheezes or rhonchi. No increased work of breathing. Heart: regular rate and rhythm. Abdomen: Soft nontender, nondistended without rebound guarding or rigidity. Extremities: No cyanosis clubbing or edema. No calf tenderness or assymetry. Arthritic changes to the hands consistent with rheumatoid arthritis. Spine/Back. Non tender to palpation. No CVA tenderness Skin: Good turgor without rashes. Neurologic exam: Cranial nerves two through 12 are intact. Motor and sensation are intact and symmetrical throughout. Medical Decision & Procedures ER Provider Diagnostic Interpretation: Radiology results as stated below per my review and radiologist interpretation: CT neck without intravenous contrast. FINDINGS: The visualized brain parenchyma is unremarkable. Old posttraumatic/postoperative changes within the left orbit. The epiglottis is normal in thickness. Heterogeneous thyroid gland. The parotid and submandibular glands are symmetric. There is abnormal soft tissue within the right lateral retropharyngeal space best seen on image 143. This measures 2.7 x 1.6 cm. This is slightly hypodense. There is no gas associated with this abnormality. This results in mild mass effect along the airway. However, the airway remains widely patent. This is adjacent to the internal carotid artery. No prevertebral soft tissue edema. No enlarged cervical lymph nodes. Bilateral superior ventricular lymph nodes are nearly symmetric. Dominant lymph node on the left measures 11 x 7 mm. Therefore, these do not meet CT criteria for pathologic involvement. The left is clear. Patchy groundglass and nodular airspace opacities within the right upper lobe posteriorly. Mild right posterior pleural thickening. The trachea is patent. No suspicious lytic or blastic osseous lesions. The paranasal sinuses and mastoid air cells are clear. Moderate narrowing at C2 and C3 levels. This is likely due to combination of degenerative and old posttraumatic changes. IMPRESSION: 1. A 2.7 x 1.6 cm area of abnormal soft tissue within the right lateral retropharyngeal space. This is difficult to characterize without contrast and could represent a mass or vascular abnormality. Dedicated neck CT with intravenous contrast is recommended for further evaluation. 2. Patchy groundglass and nodular airspace opacities within the right upper lobe posteriorly. This may represent a pneumonia. Electronically signed by: Satinder Fishman M.D. 05/29/2017 11:24 AM CHEST ONE VIEW PORTABLE FINDINGS: The heart is normal in size. There is been marked improvement in the previous identified right upper lung zone, and left lower lobe airspace opacities. The right-sided PICC catheter has been removed. There is minor blunting of the left lateral costophrenic angle. There is no failure.[ IMPRESSION: Near-complete interval resolution of the previous identified bilateral airspace opacities Electronically signed by: Jalen Ames M.D. 05/29/2017 10:37 AM SOFT TISSUE NECK WITH FINDINGS: Health Professional topogram: Unremarkable. The previously identified right cervical mass is located in the right poststyloid parapharyngeal space and measures 2.3 x 1.8 cm in maximal axial dimensions and approximately 3.6 cm in craniocaudal dimension. There is a rim of peripheral enhancement. Centrally the mass does not exhibit significant enhancement. The mass splays the right internal and external carotid arteries. Apart from this mass, no evidence of cervical lymphadenopathy. Parotid, some in the mother, and thyroid glands normal. Vessels patent. No evidence of aneurysm. Limited intracranial evaluation within normal limits. Orbits normal. Postsurgical changes of the left infraorbital rim. Degenerative changes of the cervical spine. 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 The relatively hypovascular appearance may be due to the phase of contrast though differential considerations include a pathologically enlarged lymph node or nerve sheath tumor. Electronically signed by: Karson Cavanaugh M.D. 05/29/2017 1:19 PM Laboratory Results 05/29/17 10:20 Red Blood Count 4.32, Mean Corpuscular Volume 85.0, Mean Corpuscular Hemoglobin 26.9, Mean Corpuscular Hemoglobin Concent 31.6, Mean Platelet Volume 9.9, Neutrophils (%) (Auto) 57.2, Lymphocytes (%) (Auto) 29.1, Monocytes (%) (Auto) 9.1, Eosinophils (%) (Auto) 4.2, Basophils (%) (Auto) 0.4, Neutrophils # (Auto) 1.52, Lymphocytes # (Auto) 0.77, Monocytes # (Auto) 0.24, Eosinophils # (Auto) 0.11, Basophils # (Auto) 0.01 05/29/17 10:20 Test 05/29/17 10:20 05/29/17 10:39 White Blood Count 2.65 K/uL (4.8-10.8) Red Blood Count 4.32 M/uL (4.2-5.4) Hemoglobin 11.6 g/dL (12.0-16.0) Hematocrit 36.7 % (37-47) Mean Corpuscular Volume 85.0 fL (80-100) Mean Corpuscular Hemoglobin 26.9 pg (25-34) Mean Corpuscular Hemoglobin Concent 31.6 g/dl (32-36) Platelet Count 85 K/uL (130-400) Mean Platelet Volume 9.9 fL (7.4-10.4) Neutrophils (%) (Auto) 57.2 % Lymphocytes (%) (Auto) 29.1 % Monocytes (%) (Auto) 9.1 % Eosinophils (%) (Auto) 4.2 % Basophils (%) (Auto) 0.4 % Neutrophils # (Auto) 1.52 K/uL (1.4-6.5) Lymphocytes # (Auto) 0.77 K/uL (1.2-3.4) Monocytes # (Auto) 0.24 K/uL (0.11-0.59) Eosinophils # (Auto) 0.11 K/uL (0-0.5) Basophils # (Auto) 0.01 K/uL (0-0.2) RDW Standard Deviation 55.3 fL (36.4-46.3) RDW Coefficient of Variation 17.7 % (11.5-14.5) Immature Granulocyte % (Auto) 0.0 % Immature Granulocyte # (Auto) 0.00 K/uL (0.00-0.02) Platelet Estimate DECREASED Anion Gap 4.0 mmol/L (3-11) Est Creatinine Clear Calc Drug Dose 86.6 ml/min Estimated GFR () 109.0 Estimated GFR (Non- 94.0 BUN/Creatinine Ratio 24.3 (10-20) Calcium Level 8.4 mg/dl (8.5-10.1) Bedside Troponin I < 0.030 ng/ml (0-0.045) Laboratory studies as stated above per my review. Medications Administered Medications (Trade) Dose Ordered Sig/Pnocho Route Start Time Stop Time Status Last Admin Dose Admin Prednisone (PredniSONE TAB) 60 mg NOW STAT PO 05/29/17 14:37 05/29/17 14:39 DC 05/29/17 15:06 60 MG Amoxicillin/ Clavulanate Potassium (Augmentin Tab) 875 mg NOW ONCE PO 05/29/17 14:45 05/29/17 14:46 DC 05/29/17 15:05 875 MG ECG Per My Interpretation Indication: SOB/dyspnea Rate (beats per minute): 97 Rhythm: normal sinus Findings: other (No ST elevations. No PVCs. ) Comparison ECG Date: Apr 01, 2016 Change: no significant change ED Course 0947: Past medical records reviewed. The patient was evaluated in room B5, and a complete history and physical examination were performed. 1054: I checked in on the patient. She is resting comfortably. 1143: I reassessed the patient. She is resting comfortably. We discussed the risks and benefits of repeat neck CT with contrast. She verbalizes agreement. 1437: Ordered Prednisone Tab 60 mg PO. 1443: Upon reevaluation, the patient is resting comfortably. I discussed the results and treatment plan with her. She verbalized agreement of the treatment plan. The patient was discharged home. 1445: Ordered Augmentin Tab 875 mg PO. Medical Decision Differentials include, but are not limited to; GERD, infection, mass, cardiac disease, sinus disease and airway compromise. This patient comes in as described above. She was placed in room B5. She feels like she has had some laryngitis and shortness of breath. No cough. She feels like she is a little more hoarse than normal. She looks like she is in no distress she has no stridor. No new medications. No swelling mallet lips or tongue or anything to suggest allergic reaction or angioedema. She has nothing to suggest that she has David's angina. She has no chest pain or shortness of breath to suggest infection. EKG was unremarkable. Chest x-ray was unremarkable. She has no significant electrolyte or metabolic abnormality and blood workup was unremarkable. I did do a CT soft tissue neck and there is a mass on the right side of the neck and they recommend a repeat with contrast. She has what appears to be a mass next to the carotid between the internal/ external carotid. I do not think this is likely causing her symptoms and there is no significant airway impingement. She tells me she thinks she was told this before but never any follow-up. In regards to her symptoms, I will treat with antibiotics for possible bronchitis/pneumonia. On her apex on the CT, there is questionable infiltrate and I will put on Augmentin. I also give her increased burst of steroids. She normally takes 5 mg a day and I gave her 60 mg of prednisone p.o. here and she can take 50 mg for 3 more days. She was given a prescription. I did discuss case with Dr. Slade who will follow up with her in his office for the carotid mass and gave her his contact information. The patient and her daughter happy the plan and she was discharged to home. Medication Reconcilliation Current Medication List: was personally reviewed by me Blood Pressure Screening Patient's blood pressure: Normal blood pressure Blood pressure disposition: Did not require urgent referral Consults Time Called: 1400 Consulting Physician: Dr. Slade - Vascular Surgery Returned Call: [phone] Discussed the patient's case. The patient will follow up in the office. Impression Primary Impression: SOB (shortness of breath) Additional Impressions: Pneumonia Carotid body tumor Scribe Attestation The scribe's documentation has been prepared under my direction and personally reviewed by me in its entirety. I confirm that the note above accurately reflects all work, treatment, procedures, and medical decision making performed by me. Departure Information Dispostion Home / Self-Care Prescriptions Prednisone (Prednisone) 50 Mg Tab 50 MG PO DAILY for 4 Days, #4 TAB Prov: Timur Agustin M.D. 05/29/17 Amoxicillin & Pot Clavulanate (Augmentin 875-125 mg) 1 Tab Tab 875 MG PO BID for 10 Days, #20 TAB Prov: Timur Agustin M.D. 05/29/17 Referrals Ramesh Aburto M.D. (PCP) Forms HOME CARE DOCUMENTATION FORM, IMPORTANT VISIT INFORMATION Patient Instructions My [facility] Additional Instructions Rest Drink plenty of fluids Use Augmentin 875 mg twice a day for 10 days Increase your prednisone 50 mg for 4 days Then decrease it back to your baseline 5 mg Return if: Increasing pain, shortness of breath, fever chills, worsening symptoms, any new problems or concerns Also use your albuterol nebulizer if needed Follow-up with your doctor this week Also follow-up with Dr. Slade from vascular surgery for your possible carotid mass Problem Qualifiers
[2017-05-29 15:04] VITALS: BP 128/92; PULSE 97; O2SAT 100
[2017-05-29] MEDS ORDERED: VENL75CA PO (15:44)
[2017-05-29] MEDS ORDERED: PANT40TA PO (15:44)
[2017-05-29] MEDS ORDERED: PRED-301 PO (20:05)
[2017-05-29] MEDS ORDERED: FOLI1TAB8 PO (20:05)
== END 2017-05-29 15:52 | disposition home or self-care (01) ==
LOC: C.EDB 09:25
DX: J18.9 Pneumonia, unspecified organism (principal); R22.1 Localized swelling, mass and lump, neck; R06.02 Shortness of breath; R13.10 Dysphagia, unspecified; Z85.3 Personal history of malignant neoplasm of breast; Z86.14 Personal history of Methicillin resistant Staphylococcus aureus infection; Z79.899 Other long term (current) drug therapy; M06.9 Rheumatoid arthritis, unspecified; J45.909 Unspecified asthma, uncomplicated

== ENCOUNTER 2019-08-17 00:01 | Inpatient (IN) ==
[2019-08-17] MEDS ORDERED: ONDANSETRON INJ 2 MG/ML 2 ML VIAL IV STA (00:08)
[2019-08-17] MEDS ORDERED: cefTRIAXone SODIUM 1,000 MG/50 ML BAG IV STA (00:10)
[2019-08-17] MEDS ORDERED: SODIUM CHLORIDE 0.9% 1000ML 1,000 ML IV SCH (00:15)
[2019-08-17] MEDS: fentaNYL citrate 100 MCG/2 ML VIAL IV PRN ×2 (00:55→03:29)
--- NOTE | 2019-08-17 00:55 | Emergency Department Note ---
Impression & Plan Cellulitis, Urinary tract infection, Acute pain of left hip ED Provider Note NAME: LEIGHTON FELDMAN AGE: 63 SEX: F : 1955 ARRIVES VIA: Ambulance INFORMANT: Patient, prehospital personnel. ED PROVIDER(S): Nelson Gross DO CHIEF COMPLAINT: Left hip pain HPI: The patient is a 63-year-old female who presented to the emergency department for low back pain and left hip pain. The patient had an episode today where she was trying to transfer from a seated position. She was having severe pain and had to be lowered to the ground. The patient states that she did not have a fall. She denies having any specific injury to the lower extremity but she states over the last month she is been having severe pain to the left posterior hip. She was seen by her primary care physician as well as her track repairer and was told that this was likely due to her rheumatoid arthritis. She is also been noticing redness to her left lower extremity which has been intermittent in nature. She denies having any fever nausea or vomitin g. She denies having any abdominal pain or chest pain. She has not had any recent traveling. She is not had any changes in her medications. The patient arrived at the emergency department immobilized. ROS: See above HPI for pertinent positives & negatives. A total of 10 systems reviewed and were otherwise negative. PAST MEDICAL HISTORY: See Below PAST SURGICAL HISTORY: See Below FAMILY HISTORY: See Below SOCIAL HISTORY: See Below HOME MEDICATIONS: See Below ALLERGIES: See Below VITALS: See Below PHYSICAL EXAMINATION: GENERAL: The patient is awake and alert. She is very anxious appearing and appears to be uncomfortable. EYES: The conjunctivae are clear. The pupils are round and reactive. EARS, NOSE, MOUTH AND THROAT: The nose is without any evidence of any deformity. Mucous membranes are dry. NECK: The neck is nontender and supple. RESPIRATORY: Normal respiratory effort is noted there is no evidence of wheezing rhonchi or rales CARDIOVASCULAR: Regular rate and rhythm noted there no murmurs rubs or gallops normal S1 normal S2. GASTROINTESTINAL: The abdomen is soft. Abdomen is nontender. BACK: No midline tenderness was noted. MUSCULOSKELETAL/EXTREMITIES: There was decreased range of motion in the left hip. The hip is held in flexion. There is no tenderness over the knee. There is tenderness over the posterior left hip. SKIN: There is diffuse erythema and ecchymosis over both left upper and lower extremity. There is signs of cellulitis in the left leg. NEUROLOGIC: Patient is awake alert and oriented x3. MEDICAL DECISION MAKING: The patient is a 63-year-old female who has a history of rheumatoid arthritis who presented to the emergency department with very severe left hip pain. The hip pain appeared to be mostly posterior. She had pain with range of motion. The patient was treated with IV fluids and IV pain medication in the emergency department. She was also treated with IV antibiotics for presumed cellulitis as well as urinary tract infection noted on urinalysis. I discussed the patient's laboratory and radiographic studies with her. She was still having significant pain. I [facility] They have agreed to evaluate the patient in the emergency department for further management and disposition. Triage Nursing notes reviewed. Prior medical records reviewed Vital Signs: reviewed and remarkable for tachycardia. Differential diagnosis: Cellulitis, abscess, MRSA infection, DVT, necrotizing fasciitis, dermatitis, drug eruption, allergic reaction, as well as other pathologies. ER treatment provided: See below Diagnostics interpreted by me: ECG: none Cardiac Monitoring: An order was placed for continuous cardiac monitoring. The monitor shows a rate of 110 with sinus tachycardia rhythm. Laboratory studies: As stated above and show below. Imaging studies: See below Consultation(s): [id number]: I discussed this case with Dr. Ritchie who is [facility]call [facility]. He is agreed to evaluate the patient in the emergency department for further management and disposition. Past Med/Surg History Medical History Anxiety Asthma Breast cancer in situ REASON FOR PROCEDURE. Cirrhosis Depression Felty's syndrome GERD (gastroesophageal reflux disease) History of MRSA infection PT HAD +MRSA CULTURE FOLLOWING LEFT TKA, PT REMAINS ON AMOXICILLIN BID. FOLLOWS WITH DR. GOULD IN INFECTIOUS DISEASE. History of pancytopenia HIT (heparin-induced thrombocytopenia) Rheumatoid arthritis Surgical History H/O difficult intubation 07/03/13: Glidescope #3, ETT #6.5 HiLo Oral with Grade 2 view. Smooth IV induction. Atraumatic. Failed 7.0 ETT. H/O right knee surgery Split thickness graft with wound vac application (10/09/13) Liu #3, ETT#7.0 HiLo Oral with Grade 2 View. Atraumatic DL x 1. History of appendectomy History of breast biopsy History of section History of esophagogastroduodenoscopy (EGD) History of incision and drainage I&D right knee Polyexchange Right total knee application wound vac. 07/03/13: Glidescope #3, ETT #6.5 HiLo Oral with Grade 2 view. Smooth IV induction. Atraumatic. Failed 7.0 ETT. History of thoracentesis SEVERAL YEARS AGO History of total knee replacement LEFT Recent surgical procedure on lower extremity Cooepr placed in leg S/P lumpectomy of breast Status post right knee replacement x2 Social History Preferred Language: Gabonese Communication Ability: Effective Road Crew Member Required: No Beliefs That Will Affect Care: None Current Living Situation: Alone Feels Safe at Home: Yes Smoking Status: Former smoker Cigarettes Per Day: Smoked 1ppd x 20+ years ; Second Hand Exposure: No ; Hx Alcohol Use: No Hx Substance Use: No Allergies Allergies Allergy/AdvReac Type Severity Reaction Status Date / Time Sulfa (Sulfonamide Allergy Intermediate USED Verified 08/17/19 01:01 Antibiotics) CELEBREX IN PAST adhesive Allergy Mild RASH Verified 08/17/19 01:01 daptomycin Allergy Unknown RASH Verified 08/17/19 01:01 heparin Allergy Unknown RASH Verified 08/17/19 01:01 Home Meds Home Medications Medication Instructions Recorded Confirmed acetaminophen 650 mg PO QID PRN 04/19/18 08/17/19 albuterol sulfate 2 puff INHALATION Q6H PRN 04/19/18 08/17/19 amoxicillin 250 mg PO BID 04/19/18 08/17/19 cholecalciferol (vitamin D3) 5,000 unit PO QAM 04/19/18 08/17/19 [Vitamin D3] folic acid 2 mg PO QAM 04/19/18 08/17/19 gabapentin 200 mg PO BID PRN 04/19/18 08/17/19 methotrexate sodium 4 tab PO WE 04/19/18 08/17/19 oxycodone 5 mg PO Q6H PRN 04/19/18 08/17/19 pantoprazole 40 mg PO QAM 04/19/18 08/17/19 prednisone 5 mg PO QAM 04/19/18 08/17/19 venlafaxine 2 cap PO HS 04/19/18 08/17/19 oxycodone 5 mg PO QAM 04/24/18 08/17/19 Breo Ellipta 1 inh INHALATION QAM 05/14/18 08/17/19 albuterol sulfate 2.5 mg INHALATION QID PRN 07/07/19 08/17/19 Results & Data (ED) Vital Signs Vital Signs - 24 hr 08/17/19 00:13 08/17/19 00:18 08/17/19 00:30 Temperature 37.1 C Temperature Source Oral Pulse Rate 118 H 118 H 119 H Pulse Rate from SpO2 Sensor 119 H Pulse Rhythm Regular Pulse Strength Normal Respiratory Rate 30 H 24 20 Respiratory Effort / Characteristics Non-Labored Spontaneous Respiratory Depth Normal Respiratory Pattern Regular Blood Pressure 119/74 119/74 Blood Pressure Mean 89 96 Blood Pressure Position Lying Pulse Oximetry 99 100 100 Oxygen Delivery Method Room Air Room Air Sepsis Recent Fever Within 48 Hours No Sepsis New/Unexplained Change in Mental Status No Sepsis Action Taken by Nursing No Action Required 08/17/19 00:56 08/17/19 01:00 08/17/19 01:30 Temperature Temperature Source Pulse Rate 118 H 116 H 119 H Pulse Rate from SpO2 Sensor 118 H 117 H 120 H Pulse Rhythm Pulse Strength Respiratory Rate 24 18 24 Respiratory Effort / Characteristics Respiratory Depth Respiratory Pattern Blood Pressure 122/78 118/76 110/65 Blood Pressure Mean 98 86 83 Blood Pressure Position Pulse Oximetry 100 98 100 Oxygen Delivery Method Sepsis Recent Fever Within 48 Hours Sepsis New/Unexplained Change in Mental Status Sepsis Action Taken by Detention Medications Current Medication List: was personally reviewed by me Laboratory Data Attestation: I reviewed the patient's lab results. Result diagrams: 08/17/19 00:35 08/17/19 00:35 Lab Results 08/17/19 08/17/19 08/17/19 Range/Units 00:35 00:35 01:30 WBC 6.73 (4.8-10.8) K/uL RBC 3.86 L (4.2-5.4) M/uL Hgb 9.9 L (12.0-16.0) g/dL Hct 32.6 L (37-47) % MCV 84.5 (80-100) fL MCH 25.6 (25-34) pg MCHC 30.4 L (32-36) g/dL RDW Std Deviation 56.6 H (36.4-46.3) fL RDW Coeff of Cyrus 18.6 H (11.5-14.5) % Plt Count 95 L (130-400) K/uL MPV 10.9 H (7.4-10.4) fL Immature Gran % (Auto) 0.3 % Neut % (Auto) 79.4 % Lymph % (Auto) 9.4 % [place] % (Auto) 10.4 % Eos % (Auto) 0.4 % Baso % (Auto) 0.1 % Neut # (Auto) 5.34 (1.4-6.5) K/uL Lymph # (Auto) 0.63 L (1.2-3.4) K/uL [place] # (Auto) 0.70 H (0.11-0.59) K/uL Eos # (Auto) 0.03 (0-0.5) K/uL Baso # (Auto) 0.01 (0-0.2) K/uL Immature Gran # (Auto) 0.02 (0.00-0.02) K/uL Platelet Estimate Decreased L (Normal) Giant Platelets 1+ Hypochromasia Present Ovalocytes 1+ Sodium 138 (136-145) mmol/L Potassium 3.9 (3.5-5.1) mmol/L Chloride 109 H (98-107) mmol/L Carbon Dioxide 24 (21-32) mmol/L Anion Gap 5.0 (3-11) BUN 18 (7-18) mg/dl Creatinine 0.63 (0.6-1.2) mg/dl Est Cr Clr Drug Dosing 82.6 ml/min Est GFR ( Amer) 109.1 Est GFR (Non-Af Amer) 94.1 BUN/Creatinine Ratio 28.6 H (10-20) Glucose 115 H (70-99) mg/dl Calcium 7.9 L (8.5-10.1) mg/dl Total Bilirubin 0.9 (0.2-1) mg/dl AST 25 (15-37) U/L ALT 20 (12-78) U/L Alkaline Phosphatase 140 H (45-117) U/L Total Protein 6.5 (6.4-8.2) gm/dl Albumin 2.7 L (3.4-5.0) gm/dl Globulin 3.8 (2.5-4.0) gm/dl Albumin/Globulin Ratio 0.7 L (0.9-2) Lipase 43 L (73-393) U/L Specimen Hemolysis Urine Color Dark Yellow Urine Appearance Clear (Clear) Urine pH 6.0 (4.5-7.5) Ur Specific [place] 1.029 (1.000-1.030) Urine Protein Trace H (Negative) Urine Glucose (UA) Negative (Negative) Urine Ketones Trace H (Negative) Urine Blood Negative (Negative) Urine Nitrite Positive A (Negative) Urine Bilirubin Negative (Negative) Urine Urobilinogen Positive H (Negative) Ur Leukocyte Esterase Trace H (Negative) Urine WBC (Auto) 5-10 H (0-5) /hpf Urine RBC (Auto) 0-4 (0-4) /hpf U Hyaline Cast (Auto) 1-5 (0-5) /lpf U Epithel Cells (Auto) 20-30 H (0-5) /lpf Urine Bacteria (Auto) 4+ H (Negative) Administered Medications Fentanyl Citrate (Fentanyl Citrate) 50 mcg IV Q15M PRN PRN Reason: Pain Stop: 08/31/19 00:07 Last Admin: 08/17/19 00:55 Dose: 50 mcg Documented by: [id number] Discontinued Medications Sodium Chloride (Nss 1000ml) 1,000 mls @ 999 mls/hr IV .Q1H1M NIKHIL Stop: 08/17/19 01:15 Last Infusion: 08/17/19 01:49 Dose: 0 mls/hr Documented by: [id number] Admin: 08/17/19 00:55 Dose: 999 mls/hr Documented by: [id number] Ceftriaxone Sodium (Rocephin) 1,000 mg in 50 mls @ 100 mls/hr IV NOW STA Stop: 08/17/19 00:39 Last Infusion: 08/17/19 01:49 Dose: 0 mls/hr Documented by: [id number] Admin: 08/17/19 01:23 Dose: 100 mls/hr Documented by: [id number] Ondansetron HCl (Zofran) 4 mg IV NOW STA Stop: 08/17/19 00:09 Last Admin: 08/17/19 00:55 Dose: 4 mg Documented by: [id number] Imaging Data Radiologist's Impression: Preliminary Findings Only See Final Report For Complete Findings CT PELVIS: Severe left hip arthropathy with [id number] appearance. Severe acetabular protrusio with only a thin rim of acetabular roof remaining. Subchondral cyst in the left humeral head with mild articular collapse. Moderately severe right hip osteoarthropathy L3-4, L4-5 lumbar spine degenerative changes. Inferior tip of massively enlarged left-sided spleen. There is deviation of the kidney almost to the midline. Partially visualized thick-walled appearance to the ascending colon, cecum. Scattered stool in left colon. Mild circumferential distal rectal mucosal thickening. Radiologist: Mandi Ren MD Study ready at 02:12 and initial results transmitted at 02:37 Blood Pressure Blood Pressure Findings: Normal blood pressure Discharge Plan Visit Data Chief Complaint: Fall Stated Complaint: fall, hip/back pain ED Provider: Nelson Gross Discharge Problem: Cellulitis, Urinary tract infection, Acute pain of left hip Patient Disposition: Being Evaluated by Hospitalist Condition: Good Forms Stand Alone Forms: [facility] Prescriptions Prescriptions: No Action folic acid 1 mg Tablet 2 mg PO QAM RF: 0 gabapentin 100 mg Capsule 200 mg PO BID PRN (Reason: PRN) RF: 0 acetaminophen 325 mg Capsule 650 mg PO QID PRN (Reason: Pain) RF: 0 prednisone 5 mg Tablet 5 mg PO QAM RF: 0 venlafaxine 150 mg Capsule,Extended Release 24hr 2 cap PO HS RF: 0 methotrexate sodium 2.5 mg Tablet 4 tab PO WE RF: 0 pantoprazole 40 mg Tablet,Delayed Release (Dr/Ec) 40 mg PO QAM RF: 0 oxycodone 5 mg Capsule 5 mg PO Q6H PRN (Reason: Pain) RF: 0 amoxicillin 250 mg Capsule 250 mg PO BID RF: 0 albuterol sulfate 90 mcg/actuation Hfa Aerosol Inhaler 2 puff INHALATION Q6H PRN (Reason: Wheezing) RF: 0 cholecalciferol (vitamin D3) [Vitamin D3] 1,000 unit Capsule 5,000 unit PO QAM RF: 0 oxycodone 5 mg Capsule 5 mg PO QAM RF: 0 Breo Ellipta 200-25 mcg/dose Blister With Device 1 inh INHALATION QAM RF: 0 albuterol sulfate 2.5 mg /3 mL (0.083 %) Solution For Nebulization 2.5 mg INHALATION QID PRN (Reason: Shortness Of Breath Or Wheezing) RF: 0 Referrals Referrals: Ramesh Aburto MD [Primary Care Provider] - Discharge Problem: Cellulitis Qualifiers: Site of cellulitis: extremity Site of cellulitis of extremity: lower extremity Laterality: left Qualified Code(s): L03.116 - Cellulitis of left lower limb Urinary tract infection Qualifiers: Urinary tract infection type: site unspecified Hematuria presence: without hematuria Qualified Code(s): N39.0 - Urinary tract infection, site not specified
[2019-08-17 01:14] LABS: Albumin Globulin Ratio 0.7 (0.9-2); Albumin Level 2.7 gm/dl (3.4-5.0); BUN Creatinine Ratio 28.6 (10-20); Bilirubin,Total 0.9 mg/dl (0.2-1); Calcium 7.9 mg/dl (8.5-10.1); Creatinine Clr Calc Pharmacy 82.6 ml/min; Est GFR (African American) 109.1; Est GFR (Non-African American) 94.1; Globulin 3.8 gm/dl (2.5-4.0); Potassium 3.9 mmol/L (3.5-5.1); Total Protein 6.5 gm/dl (6.4-8.2)
[2019-08-17 01:28] LABS: Basophils # (auto) 0.01 K/uL (0-0.2); Basophils % (auto) 0.1 %; Eosinophils # (auto) 0.03 K/uL (0-0.5); Eosinophils % (auto) 0.4 %; Giant Platelets 1+; Hematocrit (blood only) 32.6 % (37-47); Hemoglobin 9.9 g/dL (12.0-16.0); Hypochromasia Present; Immature Granulocytes # (auto) 0.02 K/uL (0.00-0.02); Immature Granulocytes % (auto) 0.3 %; Lymphocytes # (auto) 0.63 K/uL (1.2-3.4); Lymphocytes % (auto) 9.4 %; Mean Corpuscular Hemoglobin 25.6 pg (25-34); Mean Corpuscular Hgb Conc 30.4 g/dL (32-36); Mean Corpuscular Volume 84.5 fL (80-100); Mean Platelet Volume 10.9 fL (7.4-10.4); Monocytes % (auto) 10.4 %; Neutrophils # (auto) 5.34 K/uL (1.4-6.5); Neutrophils % (auto) 79.4 %; Ovalocytes 1+; Platelet Count 95 K/uL (130-400); Platelet Estimate Decreased (Normal); RDW Coefficient of Variation 18.6 % (11.5-14.5); RDW Standard Deviation 56.6 fL (36.4-46.3); Red Blood Count 3.86 M/uL (4.2-5.4); White Blood Count 6.73 K/uL (4.8-10.8)
[2019-08-17 01:42] LABS: Appearance Urine Clear (Clear); Bacteria Urine Automated 4+ (Negative); Blood Urine Negative (Negative); Color Urine Dark Yellow; Epithelial Cell Urine Auto 20-30 /lpf (0-5); Glucose Urine UA Negative (Negative); Ketones Urine Trace (Negative); Leukocyte Esterase Urine Trace (Negative); Nitrite Urine Positive (Negative); Protein Urine Trace (Negative); RBC Urine Automated 0-4 /hpf (0-4); Specific Gravity Urine 1.029 (1.000-1.030); Urobilinogen Urine Positive (Negative)
[2019-08-17 01:57] LABS: Bilirubin Urine Negative (Negative); Ictotest Urine Negative (Negative)
[2019-08-17] MEDS ORDERED: LACTATED RINGER'S 1,000 ML IV STA (02:40)
[2019-08-17 02:51] LABS: Magnesium 1.9 mg/dl (1.8-2.4)
[2019-08-17] MEDS ORDERED: DOXYCYCLINE HYCLATE 100 MG in DEXTROSE 5% 100 ML IV STA (03:49)
[2019-08-17] MEDS ORDERED: LORazepam 0.25 MG/0.5 ML VIAL IV STA (04:02)
--- NOTE | 2019-08-17 04:03 | History & Physical Report ---
Date of Service August 17, 2019 Assessment & Plan (1) Sepsis: Immunocompromised patient hx rheumatoid arthritis on chronic steroid, MTRX Rx Multifactorial : Complicated UTI LLE cellulitis rule out DVT Worsening left hip/left knee pain, hx rheumatoid arthritis Acute on chronic anemia Hemoglobin drop from baseline FOBT done at the ER was negative. hx chronic pancytopenia/cirrhosis/Felty syndrome as per records Possibly related to transient hematochezia following manual fecal self disimpaction at home from weeks ago as per patient account and cutaneous bruising on exam. 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 Functional disability past tobacco abuse Medical telemetry Cultures, check lactic acid Cefepime for complicated UTI Doxycycline for LLE cellulitis LE Dopplers rule out DVT Plain x-ray left knee rule out effusion Orthopedics consult RE left hip, left knee pain Anemia work-up, transfuse PRBC if hemoglobin less than 7 and or for symptomatic anemia PT OT eval DVT prophylaxis. 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 It may contain grammatical or spelling errors. Kindly contact undersigned for clarification of any documentation item in question. History of Present Illness Chief Complaint: Left hip pain, left knee pain on transferring Primary Care Provider: Ramesh Aburto MD History obtained from patient and records. 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 Last confinement March 2016 for healthcare associated pneumonia. Patient was a prison resident at that time. 2 weeks history of left knee pain, intermittent popping without fever and c hills. Patient also complaining of left hip pain in the buttock and groin area worse on ambulation. Patient seen by [facility] measurement department chief clerk outpatient. Outpatient x-ray left knee showed intact left total knee arthroplasty. No radiographic evidence of implant complication. Outpatient bilateral hip x-ray showed severe left and moderate to severe right hip osteoarthritis likely secondary to underlying rheumatoid arthritis. Orthopedics referral contemplated by measurement department chief clerk as per notes. Worsening left hip, left knee discomfort in the last week as per patient. Some swelling noted on the left lower leg. Dysuria noted yesterday without hematuria/fever,/chills. No chest pain, no cough symptoms. No abdominal pain symptoms. Transient rectal bleed from a few weeks ago after she did manual fecal self d isimpaction. No unusual shortness of breath. Upon attempting to transfer to a seat at her home last night, patient noted worsening left hip, and left knee pain leading her to lower herself to the gr ound. No fall. No head trauma. Trouble getting up. Patient called up her daughter who called EMS to check on patient. Patient found at home w/ strong stench of urine as per EMS note. At the ER, patient received Ceftriaxone for sepsis. Medical History as above Surgical History : Knee surgeries, breast biopsy, lymph node removal, leg abscess drainage, partial mastectomy, appendectomy, knee prosthesis removal, skin grafting, pleurodesis for empyema Family History : Breast cancer, heart disease, ovarian cancer Personal/Social history : Past tobacco abuse, no EtOH intake, prior caregiver work, lives at home by herself Allergies Allergy/AdvReac Type Severity Reaction Status Date / Time Sulfa (Sulfonamide Allergy Intermediate USED Verified 08/17/19 01:01 Antibiotics) CELEBREX IN PAST adhesive Allergy Mild RASH Verified 08/17/19 01:01 daptomycin Allergy Unknown RASH Verified 08/17/19 01:01 heparin Allergy Unknown RASH Verified 08/17/19 01:01 Home Medications Home Medications Medication Instructions Recorded Confirmed Type acetaminophen 650 mg PO QID PRN 04/19/18 08/17/19 History albuterol sulfate 2 puff INHALATION Q6H PRN 04/19/18 08/17/19 History amoxicillin 250 mg PO BID 04/19/18 08/17/19 History cholecalciferol (vitamin D3) 5,000 unit PO QAM 04/19/18 08/17/19 History [Vitamin D3] folic acid 2 mg PO QAM 04/19/18 08/17/19 History gabapentin 200 mg PO BID PRN 04/19/18 08/17/19 History methotrexate sodium 4 tab PO WE 04/19/18 08/17/19 History oxycodone 5 mg PO Q6H PRN 04/19/18 08/17/19 History pantoprazole 40 mg PO QAM 04/19/18 08/17/19 History prednisone 5 mg PO QAM 04/19/18 08/17/19 History venlafaxine 2 cap PO HS 04/19/18 08/17/19 History oxycodone 5 mg PO QAM 04/24/18 08/17/19 History Breo Ellipta 1 inh INHALATION QAM 05/14/18 08/17/19 History albuterol sulfate 2.5 mg INHALATION QID PRN 07/07/19 08/17/19 History Past Med/Surg History Medical History Anxiety Asthma Breast cancer in situ REASON FOR PROCEDURE. Cirrhosis Depression Felty's syndrome GERD (gastroesophageal reflux disease) History of MRSA infection PT HAD +MRSA CULTURE FOLLOWING LEFT TKA, PT REMAINS ON AMOXICILLIN BID. FOLLOWS WITH DR. GOULD IN INFECTIOUS DISEASE. History of pancytopenia HIT (heparin-induced thrombocytopenia) Rheumatoid arthritis Surgical History H/O difficult intubation 07/03/13: Glidescope #3, ETT #6.5 HiLo Oral with Grade 2 view. Smooth IV induction. Atraumatic. Failed 7.0 ETT. H/O right knee surgery Split thickness graft with wound vac application (10/09/13) Liu #3, ETT#7.0 HiLo Oral with Grade 2 View. Atraumatic DL x 1. History of appendectomy History of breast biopsy History of section History of esophagogastroduodenoscopy (EGD) History of incision and drainage I&D right knee Polyexchange Right total knee application wound vac. 07/03/13: Glidescope #3, ETT #6.5 HiLo Oral with Grade 2 view. Smooth IV induction. Atraumatic. Failed 7.0 ETT. 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 Beliefs That Will Affect Care: None Current Living Situation: Alone Other Information That Helps Us Care for You: No Feels Safe at Home: Yes Safety Concerns: Feels Safe At This Time Smoking Status: Former smoker Tobacco Type: cigarettes ; Cigarettes Per Day: Smoked 1ppd x 20+ years ; Do You Dip or Chew Tobacco: No ; Second Hand Exposure: No ; Hx Alcohol Use: No Hx Substance Use: No Review of Systems Review of Systems: As per HPI, all 10 systems reviewed, all other ROS negative Physical Exam Physical Exam: GENERAL: uncomfortable, anxious, tearful, no respiratory distress SKIN: Pallor, warm HEENT: Pale palpebral conjunctivae, no ptosis, dry buccal mucosa NECK : Supple, no tenderness CHEST : Decreased breath sounds, no tenderness HEART : Tachycardic, no obvious murmurs ABDOMEN: Some distention, nontender RECTAL : Intact sphincter, yellow stool (FOBT negative) EXTREMITIES : LLE induration and tenderness, left knee swelling with tenderness with flexion contracture, left hip tenderness. Bilateral hand deformity contractures NEUROLOGIC : Coherent, no facial asymmetry, no other gross focality Results & Data Results & Data ([facility]) Vital Signs (Past 12 Hours) Vital Signs Temp Pulse Resp BP Pulse Ox 08/17/19 03:30 117 H 22 123/74 100 08/17/19 03:00 121 H 20 108/64 100 08/17/19 02:30 116 H 20 119/77 99 08/17/19 01:30 119 H 24 110/65 100 08/17/19 01:00 116 H 18 118/76 98 08/17/19 00:56 118 H 24 122/78 100 08/17/19 00:30 119 H 20 100 08/17/19 00:18 118 H 24 119/74 100 08/17/19 00:13 37.1 C 118 H 30 H 119/74 99 Laboratory Results Laboratory Results WBC 6.73 K/uL (4.8-10.8) 08/17/19 00:35 RBC 3.86 M/uL (4.2-5.4) L 08/17/19 00:35 Hgb 9.9 g/dL (12.0-16.0) L 08/17/19 00:35 Hct 32.6 % (37-47) L 08/17/19 00:35 MCV 84.5 fL (80-100) 08/17/19 00:35 MCH 25.6 pg (25-34) 08/17/19 00:35 MCHC 30.4 g/dL (32-36) L 08/17/19 00:35 RDW Std Deviation 56.6 fL (36.4-46.3) H 08/17/19 00:35 RDW Coeff of Cyrus 18.6 % (11.5-14.5) H 08/17/19 00:35 Plt Count 95 K/uL (130-400) L 08/17/19 00:35 MPV 10.9 fL (7.4-10.4) H 08/17/19 00:35 Immature Gran % (Auto) 0.3 % 08/17/19 00:35 Neut % (Auto) 79.4 % 08/17/19 00:35 Lymph % (Auto) 9.4 % 08/17/19 00:35 [place] % (Auto) 10.4 % 08/17/19 00:35 Eos % (Auto) 0.4 % 08/17/19 00:35 Baso % (Auto) 0.1 % 08/17/19 00:35 Neut # (Auto) 5.34 K/uL (1.4-6.5) 08/17/19 00:35 Lymph # (Auto) 0.63 K/uL (1.2-3.4) L 08/17/19 00:35 [place] # (Auto) 0.70 K/uL (0.11-0.59) H 08/17/19 00:35 Eos # (Auto) 0.03 K/uL (0-0.5) 08/17/19 00:35 Baso # (Auto) 0.01 K/uL (0-0.2) 08/17/19 00:35 Immature Gran # (Auto) 0.02 K/uL (0.00-0.02) 08/17/19 00:35 Platelet Estimate Decreased (Normal) L 08/17/19 00:35 Giant Platelets 1+ 08/17/19 00:35 Hypochromasia Present 08/17/19 00:35 Ovalocytes 1+ 08/17/19 00:35 Sodium 138 mmol/L (136-145) 08/17/19 00:35 Potassium 3.9 mmol/L (3.5-5.1) 08/17/19 00:35 Chloride 109 mmol/L (98-107) H 08/17/19 00:35 Carbon Dioxide 24 mmol/L (21-32) 08/17/19 00:35 Anion Gap 5.0 (3-11) 08/17/19 00:35 BUN 18 mg/dl (7-18) 08/17/19 00:35 Creatinine 0.63 mg/dl (0.6-1.2) 08/17/19 00:35 Est Cr Clr Drug Dosing 82.6 ml/min 08/17/19 00:35 Est GFR ( Amer) 109.1 08/17/19 00:35 Est GFR (Non-Af Amer) 94.1 08/17/19 00:35 BUN/Creatinine Ratio 28.6 (10-20) H 08/17/19 00:35 Glucose 115 mg/dl (70-99) H 08/17/19 00:35 Calcium 7.9 mg/dl (8.5-10.1) L 08/17/19 00:35 Magnesium 1.9 mg/dl (1.8-2.4) 08/17/19 00:35 Total Bilirubin 0.9 mg/dl (0.2-1) 08/17/19 00:35 AST 25 U/L (15-37) 08/17/19 00:35 ALT 20 U/L (12-78) 08/17/19 00:35 Alkaline Phosphatase 140 U/L (45-117) H 08/17/19 00:35 Total Protein 6.5 gm/dl (6.4-8.2) 08/17/19 00:35 Albumin 2.7 gm/dl (3.4-5.0) L 08/17/19 00:35 Globulin 3.8 gm/dl (2.5-4.0) 08/17/19 00:35 Albumin/Globulin Ratio 0.7 (0.9-2) L 08/17/19 00:35 Lipase 43 U/L (73-393) L 08/17/19 00:35 Specimen Hemolysis 08/17/19 00:35 Urine Color Dark Yellow 08/17/19 01:30 Urine Appearance Clear (Clear) 08/17/19 01:30 Urine pH 6.0 (4.5-7.5) 08/17/19 01:30 Ur Specific [place] 1.029 (1.000-1.030) 08/17/19 01:30 Urine Protein Trace (Negative) H 08/17/19 01:30 Urine Glucose (UA) Negative (Negative) 08/17/19 01:30 Urine Ketones Trace (Negative) H 08/17/19 01:30 Urine Blood Negative (Negative) 08/17/19 01:30 Urine Nitrite Positive (Negative) A 08/17/19 01:30 Urine Bilirubin Negative (Negative) 08/17/19 01:30 Urine Urobilinogen Positive (Negative) H 08/17/19 01:30 Ur Leukocyte Esterase Trace (Negative) H 08/17/19 01:30 Urine WBC (Auto) 5-10 /hpf (0-5) H 08/17/19 01:30 Urine RBC (Auto) 0-4 /hpf (0-4) 08/17/19 01:30 U Hyaline Cast (Auto) 1-5 /lpf (0-5) 08/17/19 01:30 U Epithel Cells (Auto) 20-30 /lpf (0-5) H 08/17/19 01:30 Urine Bacteria (Auto) 4+ (Negative) H 08/17/19 01:[address] abdomen pelvis initial read: Severe left hip arthroplasty with [id number] appearance. Severe acetabular protrusion with only a thin rim of acetabular roof remaining. Subchondral cyst in left femoral head with mild articular collapse. Moderately severe right hip osteoarthropathy. L3-L4, L4-L5 lumbar spine degenerative changes. Splenomegaly. Thick-walled appearance of ascending colon and cecum. Mild circumferential distal rectal mucosal thickening. Chest x-ray as per my interpretation atelectasis
[2019-08-17] MEDS ORDERED: GABAPENTIN 100 MG CAP PO PRN (05:52)
[2019-08-17] MEDS ORDERED: OXYCODONE HCL IR 5 MG TAB (IMMEDIATE RELEASE) PO PRN (05:52)
[2019-08-17] MEDS ORDERED: PROMETHAZINE HCL 12.5 MG in SODIUM CHLORIDE 0.9% 50 ML IV PRN (05:52)
[2019-08-17] MEDS ORDERED: CEFEPIME CONSULT ACTIVE PRN (05:52)
[2019-08-17] MEDS ORDERED: POLYETHYLENE (MIRALAX) 17 GM PACK PO PRN (05:52)
[2019-08-17] MEDS ORDERED: CEFEPIME 2,000 MG in SYRINGE 7.5 ML IV SCH (06:00)
[2019-08-17] MEDS: KETOROLAC TROMETHAMINE 15 MG/ML VIAL IV PRN ×2 (06:08→23:17)
[2019-08-17] MEDS: LORazepam 0.25 MG/0.5 ML VIAL IV PRN ×2 (06:35→23:17)
[2019-08-17 07:30] LABS: Hematocrit (blood only) 31.3 % (37-47); Hemoglobin 9.6 g/dL (12.0-16.0); Reticulocyte % 1.4 % (0.5-2.0); Reticulocytes # 0.05 10^6/uL (0.02-0.10)
[2019-08-17] MEDS ORDERED: PNEUMOCOCCAL Polysaccharide Vaccine 25mcg/0.5mL vial/Syr IM ONE (07:30)
[2019-08-17] MEDS ORDERED: SODIUM CHLORIDE 0.9% 500 ML IV SCH (08:00)
--- NOTE | 2019-08-17 08:00 | Ultrasound Report ---
US venous doppler LE LT HISTORY: 63 years-old Female LLE swelling acute pain and swelling of the left lower extremity COMPARISON: Left knee radiographs of same day TECHNIQUE: Multiple real-time sonographic images of the left lower extremity deep venous structures w ere obtained assessing grayscale appearance, color and spectral flow FINDINGS: Normal flow, compressibility, phasicity and augmentation of the left lower extremity deep venous stru ctures. There is mild subcutaneous edema. IMPRESSION: No sonographic evidence of deep venous thrombosis. ACT 112: Negative or not required by law. The above report was generated using voice recognition software. It may contain grammatical, syntax o r spelling errors. Electronically signed by: Bryn Oconnor M.D. 08/17/2019 7:58 AM
[2019-08-17 08:09] LABS: Ferritin 88.7 ng/ml (8-388)
--- NOTE | 2019-08-17 08:11 | XRay Report ---
XR knee LT 3V HISTORY: 63 years-old Female L knee pain acute left-sided knee pain without reported trauma COMPARISON: None TECHNIQUE: 3 views of the left knee FINDINGS: Moderate medial soft tissue swelling. No large joint effusion, acute fracture or dislocation. Exam se condary to positioning. Demineralized appearance of the bones. Total joint arthroplasty and patella r esurfacing. No evidence of hardware complication. IMPRESSION: Soft tissue swelling without acute fracture or dislocation. ACT 112: Negative or not required by law. The above report was generated using voice recognition software. It may contain grammatical, syntax o r spelling errors. Electronically signed by: Bryn Oconnor M.D. 08/17/2019 8:10 AM
--- NOTE | 2019-08-17 08:11 | XRay Report ---
XR chest 1V portable CLINICAL HISTORY: sepsis COMPARISON STUDY: Chest CT 04/01/2016. Chest radiograph April 24, 2018. FINDINGS: Lung volumes are mildly diminished. There is no pneumothorax or pleural effusion. There is no evidence for pulmonary edema. Linear left basilar opacity favors atelectasis or scarring. Cardiome diastinal silhouette is stable. IMPRESSION: No acute cardiopulmonary findings. ACT 112: Negative or not required by law. Electronically signed by: Saravanan Ny M.D. 08/17/2019 8:10 AM
--- NOTE | 2019-08-17 08:32 | CT Scan Report ---
CT pelvis wo con CLINICAL HISTORY: Left hip pain. COMPARISON STUDY: No previous studies for comparison. TECHNIQUE: Axial images of the pelvis and hips were obtained without IV contrast. Sagittal and lizarraga l reconstructions were viewed. Automated exposure control was utilized for the study. A dose lowerin g technique was utilized adhering to the principles of ALARA. FINDINGS: Severe left hip osteoarthritis is noted with marked joint space narrowing with [id number] appearance. There is severe acetabular protrusio. Lucencies projecting over the medial cortex of the acetabulum are noted. These are age indeterminate but probably does not reflect acute fracture. Subc hondral cyst within the left femoral head are noted. There is a large left hip joint effusion with di stention of the adjacent bursa. There is also severe right hip osteoarthritis. No suspicious osseous lesions are noted. Marked splenomegaly is partially imaged. This was shown on a prior chest CT of Mar. Prominent left inguinal lymph nodes are probably reactive. Caliber appears visualized small and large bowel are normal. There is made of cecal wall/ascending colon wall thickening with s ubmucosal fat deposition. This is probably chronic. IMPRESSION: 1. End-stage osteoarthritis of the left hip with complete loss of the joint space and severe acetabul ar protrusio. Lucencies project over the medial acetabulum. Although age indeterminate, these are pro bably not acute. 2. Large left hip joint effusion with distention of the adjacent bursa. 3. Severe right hip osteoarthritis. 4. Marked splenomegaly, as shown on prior chest CT of November 29, 2016. 5. Mildly enlarged left inguinal lymph nodes which are probably reactive. ACT 112: Negative or not required by law. Electronically signed by: Saravanan Ny M.D. 08/17/2019 8:31 AM
--- NOTE | 2019-08-17 08:54 | Hospitalist Progress Note ---
Date of Service August 17, 2019 Assessment & Plan (1) Sepsis: Immunocompromised patient hx rheumatoid arthritis on chronic steroid Rx, Methotrexate Multifactorial : Gram Positive bacteremia LLE cellulitis, Left Hand cellulitis Complicated UTI Blood cultures: gram positive cocci Urine culture: pending Left Hip MRI: 1. End-stage osteoarthritis of the left hip with complete loss of the joint space and severe acetabular protrusio. Lucencies project over the medial acetabulum. Although age indeterminate, these are probably not acute. 2. Large left hip joint effusion with distention of the adjacent bursa. 3. Severe right hip osteoarthritis. 4. Marked splenomegaly, as shown on prior chest CT of November 29, 2016. 5. Mildly enlarged left inguinal lymph nodes which are probably reactive. -- broaden antibiotic coverage to Vanco + Zosyn discussed with pharmacist as patient just received IV contrast, IV fluids also given Worsening left hip/left knee pain, hx rheumatoid arthritis -- will start Solumedrol IV pain medications PRN Acute on chronic anemia -- FOBT done at the ER was negative. Possibly related to transient hematochezia following manual fecal self disimpaction at home from weeks ago as per patient account and cutaneous bruising on exam. 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 Functional disability past tobacco abuse PT OT eval DVT prophylaxis. 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--> Hold for now in light of anemia Full code case and plan of care discussed with patient's daughter Makenna in detail and at length all questions were answered she is understanding, agreeable, comfortable with the plan of care Admission and Anticipated Discharge Date Admission Date: August 17, 2019 Subjective ff up for possible sepsis secondary to bacteremia, left leg cellulitis, UTI seen resting in bed, very drowsy after receiving ativan IV on2 L NC, saturating 98% patient appears tachypneic, also in sinus tach easily awakened, states she feels better denies pain, no cough, shortness of breath denies other symptoms full ROS difficult to assess due to patient's cognitive status reassessed in the afternoon with patient's daughter at bedside patient appears more comfortable no tachypnea, accessory muscle use easily awakened, still denies left hip pain or any other pain no other symptoms Review of Systems Review of Systems: All systems reviewed & are unremarkable except as noted in HPI & below Physical Exam Physical Exam: General- drowsy, but easily awakened, oriented x 3, not in distress, speaks in sentences with no effort or accessory muscle use Head- atraumatic Eyes- PERRL, EOMI, anicteric ENT- oropharynx clear Neck- supple, no JVD, no adenopathy, no thyromegaly; carotids +2/2, no bruits appreciated Lungs- clear to auscultation bilaterally, no rales/wheezes Heart- tachycardic, regular rhythm; no murmur, no gallop, no rub appreciated Abdomen- normal bowel sounds, nondistended, soft, nontender, no masses or hepatosplenomegaly Extremities- upper ext: (+) multiple bruises bilaterally left hand: (+) significant edema, moderate erythema, mild warmth, no tenderness left lower ext: moderate edema; moderate erythema and warmth left lower ext right lower ext: mild edema, no warmth/tenderness/erythema Neuro- alert, oriented x 3; CN 2-12 grossly intact; motor 5/5 bilaterally;sensation 100% on all extremities; no other gross focal neurologic deficits Skin- warm & dry Results & Data Results & Data ([facility]) Vital Signs (Past 12 Hours) Vital Signs Temp Pulse Pulse Pulse Resp BP BP 08/17/19 08:11 36.9 C 120 H 20 125/68 08/17/19 07:39 123 H 32 H 121/77 08/17/19 06:52 120 H 08/17/19 06:00 37.4 C 119 H 22 151/85 H 08/17/19 03:30 117 H 22 123/74 08/17/19 03:00 121 H 20 108/64 08/17/19 02:30 116 H 20 119/77 08/17/19 01:30 119 H 24 110/65 08/17/19 01:00 116 H 18 118/76 08/17/19 00:56 118 H 24 122/78 08/17/19 00:30 119 H 20 08/17/19 00:18 118 H 24 119/74 08/17/19 00:13 37.1 C 118 H 30 H 119/74 Pulse Ox 08/17/19 08:11 92 08/17/19 07:39 91 08/17/19 06:52 08/17/19 06:00 96 08/17/19 03:30 100 08/17/19 03:00 100 08/17/19 02:30 99 08/17/19 01:30 100 08/17/19 01:00 98 08/17/19 00:56 100 08/17/19 00:30 100 08/17/19 00:18 100 08/17/19 00:13 99
[2019-08-17 08:57] LABS: Folate (Folic Acid) 19.08 ng/ml (>5.38)
[2019-08-17] MEDS ORDERED: predniSONE 5 MG TAB PO SCH (09:00)
[2019-08-17] MEDS ORDERED: PANTOprazole 40 MG TAB PO SCH (09:00)
[2019-08-17] MEDS ORDERED: ACETAMINOPHEN 1,000 MG/100 ML VIAL IV STA (09:02)
[2019-08-17] MEDS: FONDAPARINUX 2.5 MG/0.5 ML SYR SQ SCH (09:21)
[2019-08-17] MEDS: DOCUSATE SODIUM/SENNA 50/8.6MG TAB PO SCH (09:22)
[2019-08-17] MEDS: FOLIC ACID 1 MG TAB PO SCH (09:23)
[2019-08-17] MEDS ORDERED: XOPENEX/ATROVENT 1.25mg/0.5MG NEB COMBO NEB STA (09:39)
[2019-08-17] MEDS ORDERED: IPRATROPIUM BROMIDE NEB SOLN 0.02% 2.5 ML VIAL INH STA (09:52)
[2019-08-17] MEDS ORDERED: LEVALBUTEROL 1.25MG/0.5ML NEB INH STA (09:53)
[2019-08-17] MEDS ORDERED: methylPREDNISolone 20 MG in SYRINGE 0 ML IV SCH (10:00)
[2019-08-17] MEDS ORDERED: predniSONE 20 MG TAB PO STA (10:08)
[2019-08-17 10:45] LABS: Base Excess ABG -0.9 mEq/L (-9-1.8); HCO3 ABG 24 mmol/L (19-24); Oxygen Saturation ABG 98.3 % (90-95); PCO2 ABG 41 mmHg (35-46); PO2 ABG 117 mmHg (80-95); pH ABG 7.39 (7.35-7.45)
[2019-08-17 10:46] LABS: Allen Test Pos (Pos)
[2019-08-17 11:00] LABS: D Dimer 2580 ug/L FEU (0-500)
[2019-08-17] MEDS: methylPREDNISolone 20 MG in SYRINGE 0 ML IV SCH ×2 (11:08→18:24)
[2019-08-17] MEDS: SODIUM CHLORIDE 0.9% 1000ML 1,000 ML IV SCH ×2 (11:08→23:56)
[2019-08-17] MEDS: FLUTICASONE/VILANTEROL 200/25MCG 14 PUFFS/INHALER INH SCH (11:08)
--- NOTE | 2019-08-17 12:39 | Ultrasound Report ---
RIGHT LOWER EXTREMITY VENOUS DOPPLER CLINICAL HISTORY: right leg edema r/o dvt COMPARISON STUDY: Bilateral lower extremity venous Doppler ultrasound April 01, 2016. TECHNIQUE: Sonography of the deep venous system of the right lower extremity was performed. Compress ion and augmentation were evaluated. FINDINGS: The right common femoral, superficial femoral and popliteal veins were compressible. Augme ntation was normal. Flow was shown within the deep calf vessels although this exam was technically di fficult. Subcutaneous edema of the right leg was noted. IMPRESSION: Technically difficult exam but no evidence of deep venous thrombus within the right lower extremity. ACT 112: Negative or not required by law. Electronically signed by: Saravanan Ny M.D. 08/17/2019 12:37 PM
[2019-08-17] MEDS ORDERED: OPTIRAY 320 125ml IV PRN (12:43)
--- NOTE | 2019-08-17 13:14 | CT Scan Report ---
CT ANGIOGRAPHY OF THE CHEST, PULMONARY EMBOLUS PROTOCOL CLINICAL HISTORY: Shortness of breath. Chest pain. COMPARISON STUDY: Chest CT 04/01/2016. Chest radiograph performed earlier today. TECHNIQUE: Following IV administration of 119 mL of Optiray-320, helical axial images of the chest we re obtained utilizing the pulmonary embolus protocol. Maximal intensity projections and sagittal and coronal reformats were viewed on an independent 3D workstation. IV contrast was administered withou t complication. Automated exposure control was utilized for the study. A dose lowering technique wa s utilized adhering to the principles of ALARA. CT DOSE: 404.93 mGy.cm FINDINGS: Positioning on this exam was difficult. No pulmonary emboli are identified although this e xam is mildly compromised by respiratory motion. Moderate cardiomegaly is noted. There is no pericard ial effusion. No thoracic aortic dissection is noted. No enlarged thoracic lymph nodes are noted. A p rominent left supraclavicular lymph node is unchanged. Prominent right cardiophrenic angle lymph node s are also unchanged since CT of April 01, 2016. There is no pneumothorax. Trace left pleural effu law is noted. There is no consolidation to suggest pneumonia. Subpleural opacities reflect atelectas is. There are no suspicious pulmonary nodules. Several tiny pulmonary nodules are unchanged since noni or CT. Note is made of fractures that extend through the inferior endplate of T3 and superior endplat e of T4. There is minimal loss of height of T3 with moderate loss of height of T4. Fractures extend t hrough the posterior elements at these levels. Sclerotic margins are noted. These fractures are subac hoh. There are old right rib fractures. Splenomegaly and gallstones are again noted within visual por tions of the upper abdomen. Lateral segment of the liver is enlarged. IMPRESSION: 1. No pulmonary emboli identified although exam mildly compromised by respiratory motion. 2. Subpleural opacities consistent with atelectasis. No consolidation to suggest pneumonia. 3. Fractures of the T3 and T4 vertebra, as described above. Moderate loss of height of T4. Fractures extend through the posterior elements at these levels. These fractures are likely subacute. 4. Stable splenomegaly. 5. Cholelithiasis. ACT 112: Negative or not required by law. Electronically signed by: Saravanan Ny M.D. 08/17/2019 1:12 PM
[2019-08-17] MEDS ORDERED: MICONAZOLE NITRATE POWDER 43 GM EXT PRN (17:25)
--- NOTE | 2019-08-17 17:34 | Consultation Report ---
DATE OF CONSULTATION: 08/17/2019 HISTORY OF PRESENT ILLNESS: This is a 63-year-old female seen at the request of Dr. Neumann regarding left hip and possibly knee pain, acute on chronic. The patient has a longstanding history of multiple joint complaints, she has had rheumatoid arthritis for many years. She had previous right total knee arthroplasty performed by my partner, Dr. Luque several years ago, unfortunately it became infected. She had previous surgery on the right knee and was then referred to [place], at which point she had a further care and management, prosthetic antibiotic spacer and skin grafting performed to the right anterior knee. She also had a prior left total knee arthroplasty and she has had bilateral hip severe degenerative joint disease for many years, much worse on the left than the right. Previous discussion related the patient that she has a protrusio acetabuli noting severe loss of joint space and bone stock of the left hip. The patient has had increasing difficulty with weightbearing and walking for the last several years with most recent episode when she was unable to ambulate. She slumped to the ground, was unable to ambulate. She called her daughter and then subsequently EMS, which led to the admission at this time. The patient does very limited weightbearing and her daughter, who was present during the examination, noted that the patient does only walk several steps with the assistance of a walker with significant pain complaints. PAST MEDICAL HISTORY: Rheumatoid arthritis; chronic steroid treatment; DCIS breast, status post radiation; history of BRCA, status post surgery; cirrhosis; Felty syndrome; pancytopenia; baseline hemoglobin is 10-11; mood disorder; history of tobacco abuse; right knee periprosthetic joint infection, on chronic amoxicillin suppression therapy; history of heparin-induced thrombocytopenia; history of MRSA; history of pneumonia. PAST SURGICAL HISTORY: Bilateral knee replacements with revision and skin grafting on the right knee. Multiple other surgical procedures noncontributory at this time. ALLERGIES: SULFA, ADHESIVES, DAPTOMYCIN, HEPARIN. MEDICATIONS: Acetaminophen, albuterol, amoxicillin, vitamin D3, folate, gabapentin, methotrexate, oxycodone, pantoprazole, prednisone, venlafaxine, Breo Ellipta, albuterol sulfate, currently on IV antibiotics. SOCIAL HISTORY: Former tobacco use, cigarettes, smoked 1 pack a day for 20 years. No other tobacco use currently. Denies alcohol or drug use. She lives alone, unable to work. PHYSICAL EXAMINATION: This is a 63-year-old female lying supine in hospital room bed. Nurse is present as well as her daughter. She is hypersomnolent, difficult to arouse. She has regular breathing patterns. She does answer questions appropriately; however, requires stimulation to do so. Examination of the lower extremities demonstrates history of previous bilateral knee replacement with revision surgery on the right knee with obvious skin graft present in stable condition. Left knee range of motion is approximately 0-90 degrees of flexion. Limited range of motion of the left lower extremity in general due to the severe crepitation of the left hip. It is obvious there is bone on bone friction with any type of range of motion, passive or active. Limited range of motion produces significant discomfort in the left hip. Right hip has also limited range of motion; however, the left is worse than the right. She has 2/4 edema in bilateral lower extremities with a superficial appearing erythema at left lower extremity compared to the right, have been a stocking distribution. Dorsalis pedis and posterior tibial pulses are 2/4. LABORATORIES AND RADIOGRAPHS: Reviewed including CT scan of the pelvis noting severe degenerative arthropathy bilateral hips, more pronounced on the left than the right with a protrusio acetabuli in the left. Status post bilateral knee replacements with a cement spacer on the right. She has left knee in normal alignment. IMPRESSION: Left hip severe degenerative joint disease, rheumatoid arthritis with protrusio acetabuli, status post bilateral knee replacements with history of right total knee arthroplasty revision due to infection, multiple medical comorbidities and complications, currently septic, on IV antibiotic therapy. RECOMMENDATION: The patient is a poor surgical candidate particularly now under current condition. She had seen [facility] for consultation and she was scheduled to see them this week perhaps for steroid injections for some type of palliative care. I would defer to [facility] at this time. No surgical options offered at this time. Thank you for the opportunity to consult in care of this patient.
[2019-08-17] MEDS ORDERED: PIPERACILL/TAZOBAC CONSULT ACTIVE PRN (17:43)
[2019-08-17] MEDS ORDERED: VANCOMYCIN CONSULT ACTIVE PRN (17:45)
[2019-08-17] MEDS ORDERED: VANCOMYCIN HCL 1,500 MG in SODIUM CHLORIDE 0.9% 500 ML IV ONE (18:15)
[2019-08-17] MEDS ORDERED: PIPERACILLIN/TAZOBACTAM 3.375 GM in DEXTROSE 5% 100 ML IV ONE (18:45)
--- NOTE | 2019-08-17 20:41 | Pharmacy Report ---
Pharmacy Abx Dose Short Note - Date of Service August 17, 2019 - Assessment & Plan Assessment: 63 year old F d/c cefepime/doxy, switched to Vanc/Zosyn for gram(+) cocci bacteremia, leg cellulitis, possible UTI. Pertinent PMH: Recent IV contrast, dapto allergy (rash). Also on Zosyn-IV. Plan Vancomycin * Estimate p'kinetics: Ke~.0733hr-1, T1/2~9.5 hours. * Start Vanc 20mg/kg load (1500mg). Did not want to be aggressive in setting of recent IV contrast and on Zosyn-IV * Maintenance Dose: 1000mg (15mg/kg) IV every 12 hours * Goal trough level ~15 mcg/mL * Ordered VANC trough @ [facility] prior to 08/18 0400 dose * Ordered Scr qAM x 3 to closely monitor renal function (especially with Pip/Tazo on board). Zosyn: 3.375g IV x 1, then 3.375g IV q 8 hours for est CrCL>20mL/min. Pharmacy will continue to follow and will adjust dose/frequency as necessary. Thank you.
[2019-08-17] MEDS ORDERED: DOXYCYCLINE HYCLATE 100 MG CAP PO SCH (21:00)
[2019-08-17] MEDS ORDERED: predniSONE 20 MG TAB PO SCH (21:00)
[2019-08-17] MEDS: PANTOprazole 40 MG in SYRINGE 0 ML IV SCH (23:20)
[2019-08-17] MEDS: PIPERACILLIN/TAZOBACTAM 3.375 GM in DEXTROSE 5% 100 ML IV SCH (23:21)
[2019-08-17] MEDS: VENLAFAXINE HCL XR 150 MG CAPXR PO SCH (23:26)
[2019-08-18] MEDS: methylPREDNISolone 20 MG in SYRINGE 0 ML IV SCH ×3 (03:11→18:21)
[2019-08-18] MEDS: VANCOMYCIN HCL 1,000 MG in SODIUM CHLORIDE 0.9% 250 ML IV SCH ×2 (04:12→16:17)
[2019-08-18] MEDS: PIPERACILLIN/TAZOBACTAM 3.375 GM in DEXTROSE 5% 100 ML IV SCH ×3 (06:05→21:20)
[2019-08-18] MEDS: KETOROLAC TROMETHAMINE 15 MG/ML VIAL IV PRN (07:32)
[2019-08-18 08:18] LABS: Creatinine Clr Calc Pharmacy 91.2 ml/min; Est GFR (African American) 111.5; Est GFR (Non-African American) 96.2
--- NOTE | 2019-08-18 08:54 | Hospitalist Progress Note ---
Date of Service August 18, 2019 Assessment & Plan (1) Sepsis: Immunocompromised patient hx rheumatoid arthritis on chronic steroid Rx, Methotrexate Multifactorial : MRSA Bacteremia LLE cellulitis, Left Hand cellulitis Complicated UTI Blood cultures: MRSA Urine culture: E coli Left Hip MRI: 1. End-stage osteoarthritis of the left hip with complete loss of the joint space and severe acetabular protrusio. Lucencies project over the medial acetabulum. Although age indeterminate, these are probably not acute. 2. Large left hip joint effusion with distention of the adjacent bursa. 3. Severe right hip osteoarthritis. 4. Marked splenomegaly, as shown on prior chest CT of November 29, 2016. 5. Mildly enlarged left inguinal lymph nodes which are probably reactive. -- continue Vanco + Zosyn Worsening left hip/left knee pain, hx rheumatoid arthritis -- discussed with Dr. Villafana severe OA of the left hip, surgery not recommended at this time due to sepsis, if preferred, will need to go to tertiary care center septic arthritis unlikely per Dr. Villafana -- pain about the same as yesterday -- Solumedrol IV, taper to q12h tomorrow Tylenol q6h, PRN Tramadol and Oxycodone Acute on chronic anemia -- FOBT done at the ER was negative. Possibly related to transient hematochezia following manual fecal self disimpaction at home from weeks ago as per patient account and cutaneous bruising on exam. -- Iron deficiency -- no signs of overt GI bleed Hg stable Protonix 40mg IV BID will monitor will supplement Iron Tachycardia --sinus rhythm -- likely secondary to sepsis, bacteremia, dehydration CT angio: no PE IV fluids ordered -- improving hx chronic pancytopenia/cirrhosis/Felty syndrome as per records hx DCIS breast/hx BRCA status post surgery history right knee prosthetic joint infection on chronic amoxicillin suppression Rx ? Functional disability past tobacco abuse PT OT eval DVT prophylaxis. 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 seen resting in bed, comfortable, just had breakfast more awake, alert, oriented x 3 states she feels improved today still having left hip pain though denies shortness of breath, cough, palpitations, dizziness no other symptoms Review of Systems Review of Systems: All systems reviewed & are unremarkable except as noted in HPI & below Physical Exam Physical Exam: General- oriented x 3, not in distress, speaks in sentences with no effort or accessory muscle use Eyes- anicteric Neck- no JVD Lungs- clear breath sounds bilaterally, no rales/wheezes Heart- mild tachycardia, regular rhythm; no murmurs Abdomen- normal bowel sounds, nondistended, soft, nontender Extremities-right hand: mild edema/erythema, no tenderness left lower ext: moderate edema, less erythema, no tenderness right lower ext: mild edema, no erythema/tenderness Neuro- alert, oriented x 3; no gross focal neurologic deficits Skin- warm & dry Results & Data Results & Data ([facility]) Vital Signs (Past 12 Hours) Vital Signs Temp Pulse Pulse Resp BP Pulse Ox 08/18/19 07:34 36.7 C 114 H 20 148/88 H 99 08/18/19 03:00 36.9 C 114 H 22 153/86 H 99 08/17/19 23:22 36.8 C 113 H 20 138/82 100 08/17/19 23:00 117 H Laboratory Results Laboratory Results - last 24 hr 08/18/19 08/18/19 08/18/19 07:37 07:38 07:38 WBC 5.73 RBC 4.14 L Hgb 10.5 L Hct 35.4 L MCV 85.5 MCH 25.4 MCHC 29.7 L RDW Std Deviation 56.7 H RDW Coeff of Cyrus 18.3 H Plt Count 112 L MPV 11.1 H Immature Gran % (Auto) 0.2 Neut % (Auto) 90.0 Lymph % (Auto) 5.8 [place] % (Auto) 3.8 Eos % (Auto) 0.2 Baso % (Auto) 0.0 Neut # (Auto) 5.16 Lymph # (Auto) 0.33 L [place] # (Auto) 0.22 Eos # (Auto) 0.01 Baso # (Auto) 0.00 Immature Gran # (Auto) 0.01 Sodium 139 Potassium 4.3 Chloride 110 H Carbon Dioxide 23 Anion Gap 6.0 BUN 18 Creatinine 0.59 L 0.59 L Est Cr Clr Drug Dosing 91.2 91.2 Est GFR ( Amer) 111.5 111.5 Est GFR (Non-Af Amer) 96.2 96.2 BUN/Creatinine Ratio 30.9 H Glucose 97 Calcium 8.3 L
[2019-08-18] MEDS: PANTOprazole 40 MG in SYRINGE 0 ML IV SCH ×2 (09:19→20:12)
[2019-08-18] MEDS: ACETAMINOPHEN 325 MG TAB PO SCH ×3 (09:20→20:11)
[2019-08-18] MEDS: FLUTICASONE/VILANTEROL 200/25MCG 14 PUFFS/INHALER INH SCH (09:20)
[2019-08-18] MEDS: FOLIC ACID 1 MG TAB PO SCH (09:21)
[2019-08-18] MEDS: DOCUSATE SODIUM/SENNA 50/8.6MG TAB PO SCH (09:21)
[2019-08-18] MEDS: SODIUM CHLORIDE 0.9% 1000ML 1,000 ML IV SCH ×2 (09:23→19:12)
[2019-08-18 09:43] LABS: Est GFR (African American) 111.5; Est GFR (Non-African American) 96.2; Potassium 4.3 mmol/L (3.5-5.1)
[2019-08-18 09:44] LABS: BUN Creatinine Ratio 30.9 (10-20); Calcium 8.3 mg/dl (8.5-10.1); Creatinine Clr Calc Pharmacy 91.2 ml/min
[2019-08-18 09:55] LABS: Eosinophils # (auto) 0.01 K/uL (0-0.5); Eosinophils % (auto) 0.2 %; Hematocrit (blood only) 35.4 % (37-47); Hemoglobin 10.5 g/dL (12.0-16.0); Immature Granulocytes # (auto) 0.01 K/uL (0.00-0.02); Immature Granulocytes % (auto) 0.2 %; Lymphocytes # (auto) 0.33 K/uL (1.2-3.4); Lymphocytes % (auto) 5.8 %; Mean Corpuscular Hemoglobin 25.4 pg (25-34); Mean Corpuscular Hgb Conc 29.7 g/dL (32-36); Mean Corpuscular Volume 85.5 fL (80-100); Mean Platelet Volume 11.1 fL (7.4-10.4); Monocytes # (auto) 0.22 K/uL (0.11-0.59); Monocytes % (auto) 3.8 %; Neutrophils # (auto) 5.16 K/uL (1.4-6.5); Platelet Count 112 K/uL (130-400); RDW Coefficient of Variation 18.3 % (11.5-14.5); RDW Standard Deviation 56.7 fL (36.4-46.3); Red Blood Count 4.14 M/uL (4.2-5.4); White Blood Count 5.73 K/uL (4.8-10.8)
[2019-08-18] MEDS: VENLAFAXINE HCL XR 150 MG CAPXR PO SCH (20:11)
[2019-08-18] MEDS: OXYCODONE HCL IR 5 MG TAB (IMMEDIATE RELEASE) PO PRN (23:52)
[2019-08-18] MEDS: LORazepam 0.25 MG/0.5 ML VIAL IV PRN (23:53)
[2019-08-19] MEDS: methylPREDNISolone 20 MG in SYRINGE 0 ML IV SCH ×3 (02:14→18:02)
[2019-08-19] MEDS: ACETAMINOPHEN 325 MG TAB PO SCH ×4 (02:15→20:16)
[2019-08-19 03:24] LABS: Eosinophils # (auto) 0.01 K/uL (0-0.5); Eosinophils % (auto) 0.2 %; Hematocrit (blood only) 36.1 % (37-47); Hemoglobin 10.5 g/dL (12.0-16.0); Immature Granulocytes # (auto) 0.02 K/uL (0.00-0.02); Immature Granulocytes % (auto) 0.4 %; Lymphocytes # (auto) 0.33 K/uL (1.2-3.4); Lymphocytes % (auto) 6.1 %; Mean Corpuscular Hemoglobin 25.3 pg (25-34); Mean Corpuscular Hgb Conc 29.1 g/dL (32-36); Mean Platelet Volume 10.5 fL (7.4-10.4); Monocytes # (auto) 0.42 K/uL (0.11-0.59); Monocytes % (auto) 7.7 %; Neutrophils # (auto) 4.66 K/uL (1.4-6.5); Neutrophils % (auto) 85.6 %; Platelet Count 109 K/uL (130-400); RDW Coefficient of Variation 18.4 % (11.5-14.5); RDW Standard Deviation 57.7 fL (36.4-46.3); Red Blood Count 4.15 M/uL (4.2-5.4); White Blood Count 5.44 K/uL (4.8-10.8)
[2019-08-19] MEDS ORDERED: VANCOMYCIN TROUGH ONE (03:30)
[2019-08-19 03:40] LABS: BUN Creatinine Ratio 31.3 (10-20); Creatinine Clr Calc Pharmacy 70.8 ml/min; Est GFR (African American) 95.4; Est GFR (Non-African American) 82.3; Potassium 4.1 mmol/L (3.5-5.1)
[2019-08-19] MEDS: VANCOMYCIN HCL 1,000 MG in SODIUM CHLORIDE 0.9% 250 ML IV SCH (03:54)
[2019-08-19] MEDS: PIPERACILLIN/TAZOBACTAM 3.375 GM in DEXTROSE 5% 100 ML IV SCH (05:54)
[2019-08-19] MEDS: SODIUM CHLORIDE 0.9% 1000ML 1,000 ML IV SCH ×2 (08:29→22:17)
[2019-08-19] MEDS: FLUTICASONE/VILANTEROL 200/25MCG 14 PUFFS/INHALER INH SCH (08:29)
[2019-08-19] MEDS: PANTOprazole 40 MG in SYRINGE 0 ML IV SCH ×2 (08:31→20:16)
[2019-08-19] MEDS: FONDAPARINUX 2.5 MG/0.5 ML SYR SQ SCH (08:31)
[2019-08-19] MEDS: FOLIC ACID 1 MG TAB PO SCH (08:32)
[2019-08-19] MEDS: FERROUS SULFATE 325 MG TAB PO SCH ×2 (08:32→18:00)
[2019-08-19] MEDS: DOCUSATE SODIUM/SENNA 50/8.6MG TAB PO SCH (08:32)
[2019-08-19] MEDS: OXYCODONE HCL IR 5 MG TAB (IMMEDIATE RELEASE) PO PRN (08:33)
--- NOTE | 2019-08-19 10:16 | Pharmacy Report ---
Pharmacy Abx Dose Short Note - Date of Service August 19, 2019 - Assessment & Plan Assessment 63 year old F receiving VANCOMYCIN for treatment of MRSA bacteremia; additionally previously on cefepime + doxy for cellulitis, this was switched to zosyn- will change back to cefepime as E. coli resulted in urine culture resistant to zosyn- will need to add flagyl if anaerobic coverage desired. Day # 3 of antimicrobial therapy. Plan Vancomycin * Trough level of 12.1 mcg/mL is subtherapeutic * Change to 1250 mg IV every 12 hours; SCr slightly increased today, patient with recent IV contrast use and zosyn+vancomycin will monitor * Goal trough level 15-20 mcg/mL * Trough ordered for 08/19 @1130 Pharmacy will continue to follow and will adjust dose/frequency as necessary. Thank you.
[2019-08-19] MEDS: CEFEPIME 2,000 MG in SYRINGE 7.5 ML IV SCH ×2 (11:24→18:00)
[2019-08-19] MEDS: VANCOMYCIN HCL 1,250 MG in SODIUM CHLORIDE 0.9% 250 ML IV SCH ×2 (13:31→23:13)
--- NOTE | 2019-08-19 18:38 | Hospitalist Progress Note ---
Date of Service August 19, 2019 Assessment & Plan (1) Sepsis: Immunocompromised patient hx rheumatoid arthritis on chronic steroid Rx, Methotrexate Multifactorial : MRSA Bacteremia LLE cellulitis, Left Hand cellulitis Complicated UTI Blood cultures: MRSA Urine culture: E coli Left Hip MRI: 1. End-stage osteoarthritis of the left hip with complete loss of the joint space and severe acetabular protrusio. Lucencies project over the medial acetabulum. Although age indeterminate, these are probably not acute. 2. Large left hip joint effusion with distention of the adjacent bursa. 3. Severe right hip osteoarthritis. 4. Marked splenomegaly, as shown on prior chest CT of November 29, 2016. 5. Mildly enlarged left inguinal lymph nodes which are probably reactive. -- afebrile no leukocytosis -- continue Vanco + Cefepime ID consulted Worsening left hip/left knee pain, hx rheumatoid arthritis -- discussed with Dr. Villafana severe OA of the left hip, surgery not recommended at this time due to sepsis, if preferred, will need to go to tertiary care center septic arthritis unlikely per Dr. Villafana -- pain improving -- Solumedrol IV, taper to q12h tomorrow Tylenol q6h, PRN Tramadol and Oxycodone Acute on chronic anemia -- FOBT done at the ER was negative. Possibly related to transient hematochezia following manual fecal self disimpaction at home from weeks ago as per patient account and cutaneous bruising on exam. -- Iron deficiency -- no signs of overt GI bleed Hg stable Protonix 40mg IV BID will monitor will supplement Iron Tachycardia -- sinus rhythm -- likely secondary to sepsis, bacteremia, dehydration CT angio: no PE IV fluids ordered -- improving hx chronic pancytopenia/cirrhosis/Felty syndrome as per records hx DCIS breast/hx BRCA status post surgery history right knee prosthetic joint infection on chronic amoxicillin suppression Rx ? Functional disability -- PT/OT ordered past tobacco abuse PT OT eval DVT prophylaxis. Landy RE history HIT Full code case and plan of care discussed with patient in detail and at length all questions were answered she is understanding, agreeable, comfortable with the plan of care Admission and Anticipated Discharge Date Admission Date: August 17, 2019 Subjective ff up for sepsis, MRSA bacteremia, E coli UTI seen resting in bed, weak but more alert oriented x 3 not in distress states she feels improved today left hip pain improving denies any other pain no shortness of breath, cough, sputum denies other symptoms Review of Systems Review of Systems: All systems reviewed & are unremarkable except as noted in HPI & below Physical Exam Physical Exam: General- oriented x 3, not in distress, speaks in sentences with no effort or accessory muscle use Eyes- anicteric Neck- no JVD Lungs- clear breath sounds bilaterally, no rales/wheezes Heart- mild tachycardic rate, regular rhythm; no murmurs Abdomen- normal bowel sounds, nondistended, soft, nontender Extremities- right hand: mild edema/erythema, no tenderness--> improving left lower ext: moderate edema, less erythema, no tenderness--> improving right lower ext: mild edema, no erythema/tenderness no pretibial edema, no calf tenderness Neuro- alert, oriented x 3; no gross focal neurologic deficits Skin- warm & dry Results & Data Results & Data ([facility]) Vital Signs (Past 12 Hours) Vital Signs Temp Pulse Pulse Resp BP Pulse Ox 08/19/19 15:43 36.7 C 106 H 16 153/85 H 98 08/19/19 13:40 98 08/19/19 11:30 36.5 C 106 H 16 150/91 H 98 08/19/19 08:00 106 H 08/19/19 07:26 36.4 C L 104 H 20 155/93 H 95 Laboratory Results Laboratory Results - last 24 hr 08/19/19 08/19/19 08/19/19 03:02 03:02 03:02 WBC 5.44 RBC 4.15 L Hgb 10.5 L Hct 36.1 L MCV 87.0 MCH 25.3 MCHC 29.1 L RDW Std Deviation 57.7 H RDW Coeff of Cyrus 18.4 H Plt Count 109 L MPV 10.5 H Immature Gran % (Auto) 0.4 Neut % (Auto) 85.6 Lymph % (Auto) 6.1 [place] % (Auto) 7.7 Eos % (Auto) 0.2 Baso % (Auto) 0.0 Neut # (Auto) 4.66 Lymph # (Auto) 0.33 L [place] # (Auto) 0.42 Eos # (Auto) 0.01 Baso # (Auto) 0.00 Immature Gran # (Auto) 0.02 Sodium 140 Potassium 4.1 Chloride 113 H Carbon Dioxide 22 Anion Gap 5.0 BUN 24 H Creatinine 0.76 Est Cr Clr Drug Dosing 70.8 Est GFR ( Amer) 95.4 Est GFR (Non-Af Amer) 82.3 BUN/Creatinine Ratio 31.3 H Glucose 133 H Calcium 8.0 L Vancomycin Trough 12.1
[2019-08-19] MEDS: VENLAFAXINE HCL XR 150 MG CAPXR PO SCH (20:16)
[2019-08-20] MEDS: CEFEPIME 2,000 MG in SYRINGE 7.5 ML IV SCH ×3 (01:29→19:22)
[2019-08-20] MEDS: ACETAMINOPHEN 325 MG TAB PO SCH ×4 (02:08→20:56)
[2019-08-20] MEDS: OXYCODONE HCL IR 5 MG TAB (IMMEDIATE RELEASE) PO PRN ×2 (05:24→19:21)
[2019-08-20 06:22] LABS: Eosinophils # (auto) 0.05 K/uL (0-0.5); Eosinophils % (auto) 1.3 %; Hematocrit (blood only) 32.8 % (37-47); Hemoglobin 9.6 g/dL (12.0-16.0); Immature Granulocytes # (auto) 0.02 K/uL (0.00-0.02); Immature Granulocytes % (auto) 0.5 %; Lymphocytes # (auto) 0.48 K/uL (1.2-3.4); Lymphocytes % (auto) 12.7 %; Mean Corpuscular Hemoglobin 25.4 pg (25-34); Mean Corpuscular Hgb Conc 29.3 g/dL (32-36); Mean Corpuscular Volume 86.8 fL (80-100); Mean Platelet Volume 9.6 fL (7.4-10.4); Monocytes % (auto) 10.6 %; Neutrophils # (auto) 2.83 K/uL (1.4-6.5); Neutrophils % (auto) 74.9 %; Platelet Count 105 K/uL (130-400); RDW Coefficient of Variation 18.4 % (11.5-14.5); RDW Standard Deviation 57.7 fL (36.4-46.3); Red Blood Count 3.78 M/uL (4.2-5.4); White Blood Count 3.78 K/uL (4.8-10.8)
[2019-08-20 06:49] LABS: Giant Platelets 1+
[2019-08-20 07:01] LABS: Calcium 7.6 mg/dl (8.5-10.1); Est GFR (African American) 108.5; Est GFR (Non-African American) 93.6; Potassium 3.5 mmol/L (3.5-5.1)
[2019-08-20] MEDS: FLUTICASONE/VILANTEROL 200/25MCG 14 PUFFS/INHALER INH SCH (08:06)
[2019-08-20] MEDS: FOLIC ACID 1 MG TAB PO SCH (08:07)
[2019-08-20] MEDS: DOCUSATE SODIUM/SENNA 50/8.6MG TAB PO SCH (08:08)
[2019-08-20] MEDS: FONDAPARINUX 2.5 MG/0.5 ML SYR SQ SCH (08:09)
[2019-08-20] MEDS: PANTOprazole 40 MG in SYRINGE 0 ML IV SCH ×2 (08:09→21:24)
[2019-08-20] MEDS: methylPREDNISolone 20 MG in SYRINGE 0 ML IV SCH ×2 (08:10→20:57)
[2019-08-20] MEDS: FERROUS SULFATE 325 MG TAB PO SCH ×2 (10:31→16:24)
[2019-08-20] MEDS ORDERED: VANCOMYCIN TROUGH ONE (11:30)
[2019-08-20] MEDS: SODIUM CHLORIDE 0.9% 1000ML 1,000 ML IV SCH ×2 (11:45→21:22)
[2019-08-20] MEDS: VANCOMYCIN HCL 1,250 MG in SODIUM CHLORIDE 0.9% 250 ML IV SCH ×2 (12:48→23:30)
--- NOTE | 2019-08-20 15:42 | Pharmacy Report ---
Pharmacy Abx Dose Short Note - Date of Service August 20, 2019 - Assessment & Plan Assessment 63 year old F receiving vancomycin/cefepime for treatment of MRSA bacteremia/uti Day # 4 of antimicrobial therapy. Plan Vancomycin * Trough level of 18.5 mcg/mL is therapeutic * Continue dose of 1250 mg q12H * Goal trough level for bacteremia 15-20 mcg/mL * Will order next trough in 3-4 days or with changes in renal function Pharmacy will continue to follow and will adjust dose/frequency as necessary. Thank you.
--- NOTE | 2019-08-20 16:30 | Hospitalist Progress Note ---
Date of Service August 20, 2019 Assessment & Plan (1) Sepsis: (1) Sepsis: Multifactorial : MRSA Bacteremia LLE cellulitis, Left Hand cellulitis Complicated UTI Immunocompromised patient hx rheumatoid arthritis on chronic steroid Rx, Methotrexate Blood cultures: MRSA Urine culture: E coli Left Hip MRI: 1. End-stage osteoarthritis of the left hip with complete loss of the joint space and severe acetabular protrusio. Lucencies project over the medial acetabulum. Although age indeterminate, these are probably not acute. 2. Large left hip joint effusion with distention of the adjacent bursa. 3. Severe right hip osteoarthritis. 4. Marked splenomegaly, as shown on prior chest CT of November 29, 2016. 5. Mildly enlarged left inguinal lymph nodes which are probably reactive. --Remains afebrile no leukocytosis Currently improving -- continue Vanco + Cefepime [facility] infectious disease telehealth consult placed, awaiting recommendations Worsening left hip/left knee pain, hx rheumatoid arthritis -- discussed with Dr. Villafana severe OA of the left hip, surgery not recommended at this time due to sepsis, if preferred, will need to go to tertiary care center septic arthritis unlikely per Dr. Villafana -- pain typically improved now -- Solumedrol IV, taper to q12h Usually on prednisone 5 mg daily Tylenol q6h, PRN Tramadol and Oxycodone --Will need outpatient rheumatology and orthopedic service follow-up for definitive management of severe left hip osteoarthritis causing severe pain Acute on chronic anemia -- FOBT done at the ER was negative. Possibly related to transient hematochezia following manual fecal self disimpaction at home from weeks ago as per patient account and cutaneous bruising on exam. -- Iron deficiency -- no signs of overt GI bleed Hg stable around 9-10 Continue Protonix 40mg IV BID Monitor hemoglobin Supplement ordered Sinus tachycardia -- sinus rhythm -- likely secondary to sepsis, bacteremia, dehydration CT angio: no PE IV fluids ordered -- improving hx chronic pancytopenia/cirrhosis/Felty syndrome as per records hx DCIS breast/hx BRCA status post surgery history right knee prosthetic joint infection on chronic amoxicillin suppression Rx ? Functional disability -- PT/OT ordered past tobacco abuse PT OT eval DVT prophylaxis. 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 coli UTI, left hip pain with arthritis Seen sitting up in bed watching TV, oriented x3, comfortable, not in distress States she continues to feel better overall Left hip pain has minimal pain now Denies any other pain in her body No shortness of breath, palpitations, dizziness Denies chest pain, abdominal pain, or any other symptoms today Intermittently patient becomes tearful, frustrated that she cannot move her upper arms Patient reassured, and she became calmer No other symptoms Review of Systems Review of Systems: All systems reviewed & are unremarkable except as noted in HPI & below Physical Exam Physical Exam: General- oriented x 3, not in distress, speaks in sentences with no effort or accessory muscle use Eyes- anicteric Neck- no JVD Lungs- clear breath sounds bilaterally, no rales/wheezes Heart- normal rate, regular rhythm; no murmurs Abdomen- normal bowel sounds, nondistended, soft, nontender Extremities- no pretibial edema, no calf tenderness right hand: edema/erythema/tenderness-->resolved left lower ext: moderate edema, less erythema, no tenderness--> improving right lower ext: mild edema, no erythema/tenderness no pretibial edema, no calf tenderness Neuro- alert, oriented x 3; no gross focal neurologic deficits Skin- warm & dry Results & Data Results & Data ([facility]) Vital Signs (Past 12 Hours) Vital Signs Temp Pulse Pulse Resp BP Pulse Ox 08/20/19 15:23 36.8 C 111 H 20 166/104 H 99 08/20/19 10:00 108 H 08/20/19 07:06 36.5 C 113 H 19 122/77 98 Laboratory Results Laboratory Results - last 24 hr 08/20/19 08/20/19 08/20/19 05:56 05:56 11:40 WBC 3.78 L RBC 3.78 L Hgb 9.6 L Hct 32.8 L MCV 86.8 MCH 25.4 MCHC 29.3 L RDW Std Deviation 57.7 H RDW Coeff of Cyrus 18.4 H Plt Count 105 L MPV 9.6 Immature Gran % (Auto) 0.5 Neut % (Auto) 74.9 Lymph % (Auto) 12.7 [place] % (Auto) 10.6 Eos % (Auto) 1.3 Baso % (Auto) 0.0 Neut # (Auto) 2.83 Lymph # (Auto) 0.48 L [place] # (Auto) 0.40 Eos # (Auto) 0.05 Baso # (Auto) 0.00 Immature Gran # (Auto) 0.02 Giant Platelets 1+ Sodium 144 Potassium 3.5 Chloride 115 H Carbon Dioxide 23 Anion Gap 6.0 BUN 21 H Creatinine 0.64 Est Cr Clr Drug Dosing 85.0 Est GFR ( Amer) 108.5 Est GFR (Non-Af Amer) 93.6 BUN/Creatinine Ratio 33.0 H Glucose 94 Calcium 7.6 L Vancomycin Trough 18.5
[2019-08-20] MEDS: VENLAFAXINE HCL XR 150 MG CAPXR PO SCH (20:56)
[2019-08-21] MEDS: ACETAMINOPHEN 325 MG TAB PO SCH ×4 (02:07→21:38)
[2019-08-21] MEDS: CEFEPIME 2,000 MG in SYRINGE 7.5 ML IV SCH ×2 (02:08→10:11)
[2019-08-21 07:03] LABS: Hematocrit (blood only) 31.7 % (37-47); Hemoglobin 9.5 g/dL (12.0-16.0); Mean Corpuscular Hemoglobin 25.6 pg (25-34); Mean Corpuscular Volume 85.4 fL (80-100); RDW Coefficient of Variation 18.5 % (11.5-14.5); RDW Standard Deviation 57.4 fL (36.4-46.3); Red Blood Count 3.71 M/uL (4.2-5.4); White Blood Count 3.11 K/uL (4.8-10.8)
[2019-08-21 07:07] LABS: Mean Platelet Volume 9.8 fL (7.4-10.4); Platelet Count 99 K/uL (130-400)
[2019-08-21 07:27] LABS: Eosinophils # (auto) 0.06 K/uL (0-0.5); Eosinophils % (auto) 1.9 %; Hypochromasia Present; Immature Granulocytes # (auto) 0.02 K/uL (0.00-0.02); Immature Granulocytes % (auto) 0.6 %; Lymphocytes # (auto) 0.52 K/uL (1.2-3.4); Lymphocytes % (auto) 16.7 %; Monocytes # (auto) 0.26 K/uL (0.11-0.59); Monocytes % (auto) 8.4 %; Neutrophils # (auto) 2.25 K/uL (1.4-6.5); Neutrophils % (auto) 72.4 %; Platelet Estimate Decreased (Normal)
[2019-08-21 07:30] LABS: BUN Creatinine Ratio 32.9 (10-20); Creatinine Clr Calc Pharmacy 107.6 ml/min; Est GFR (Non-African American) 100.9; Potassium 3.7 mmol/L (3.5-5.1)
[2019-08-21] MEDS: DOCUSATE SODIUM/SENNA 50/8.6MG TAB PO SCH ×2 (09:16→09:31)
[2019-08-21] MEDS: PANTOprazole 40 MG in SYRINGE 0 ML IV SCH ×2 (09:16→21:38)
[2019-08-21] MEDS: FOLIC ACID 1 MG TAB PO SCH (09:16)
[2019-08-21] MEDS: FONDAPARINUX 2.5 MG/0.5 ML SYR SQ SCH (09:17)
[2019-08-21] MEDS: FLUTICASONE/VILANTEROL 200/25MCG 14 PUFFS/INHALER INH SCH (09:17)
[2019-08-21] MEDS: methylPREDNISolone 20 MG in SYRINGE 0 ML IV SCH ×2 (09:17→21:38)
[2019-08-21] MEDS: FERROUS SULFATE 325 MG TAB PO SCH ×2 (09:18→17:08)
[2019-08-21] MEDS: SODIUM CHLORIDE 0.9% 1000ML 1,000 ML IV SCH ×2 (11:15→21:37)
[2019-08-21] MEDS: VANCOMYCIN HCL 1,250 MG in SODIUM CHLORIDE 0.9% 250 ML IV SCH ×2 (11:35→23:45)
--- NOTE | 2019-08-21 15:47 | Hospitalist Progress Note ---
Date of Service August 21, 2019 Assessment & Plan Admission and Anticipated Discharge Date Admission Date: August 17, 2019 Subjective Communication from [employer] ID: from [employer] ID: , Consulted for MRSA bacteremia and E. coli UTI. Recommend continuing IV Vancomycin. Recommend switching from Cefepime to Ceftriaxone based on E. coli susceptibilities. Total of 7 days for Ceftriaxone to treat UTI. Vancomycin IV will need to be continued for much longer. Recommend repeating Blood cultures every other day until negative. Recommend TTE to help r/o endovascular infection/source/seeding. MRI showing left hip effusion is concerning, would recommend aspiration at some point and if positive for MRSA or synovial cell count concerns, pt will need I and D by Ortho. We will continue to follow. Note to follow. - Rodolfo Results & Data Results & Data ([facility]) Vital Signs (Past 12 Hours) Vital Signs Temp Pulse Pulse Resp BP Pulse Ox 08/21/19 11:42 36.6 C 103 H 20 157/85 H 98 08/21/19 07:15 36.5 C 96 H 18 130/82 100 08/21/19 07:00 95 H
--- NOTE | 2019-08-21 17:24 | Hospitalist Progress Note ---
Date of Service August 21, 2019 Assessment & Plan (1) Sepsis: (1) Sepsis: Multifactorial : MRSA Bacteremia LLE cellulitis, Left Hand cellulitis Complicated UTI Immunocompromised patient hx rheumatoid arthritis on chronic steroid Rx, Methotrexate Blood cultures: MRSA/Repeat blood culture ordered Urine culture: E coli Appreciate input from [employer] infectious disease: Communication from [employer] ID: Consulted for MRSA bacteremia and E. coli UTI. Recommend continuing IV Vancomycin. Recommend switching from Cefepime to Ceftriaxone based on E. coli susceptibilities. Total of 7 days for Ceftriaxone to treat UTI. Vancomycin IV will need to be continued for much longer. Recommend repeating Blood cultures every other day until negative. Recommend TTE to help r/o endovascular infection/source/seeding. MRI showing left hip effusion is concerning, would recommend aspiration at some point and if positive for MRSA or synovial cell count concerns, pt will need I and D by Ortho. We will continue to follow. Antibiotic adjusted, continue IV vancomycin/IV Rocephin for 7 days Ordered for transthoracic echo We will discussed with orthopedics regarding left hip joint effusion aspiration Worsening left hip/left knee pain, hx rheumatoid arthritis -- Left Hip MRI: 1. End-stage osteoarthritis of the left hip with complete loss of the joint space and severe acetabular protrusio. Lucencies project over the medial acetabulum. Although age indeterminate, these are probably not acute. 2. Large left hip joint effusion with distention of the adjacent bursa. 3. Severe right hip osteoarthritis. 4. Marked splenomegaly, as shown on prior chest CT of November 29, 2016. 5. Mildly enlarged left inguinal lymph nodes which are probably reactive. -Orthopedics consulted severe OA of the left hip, surgery not recommended at this time due to sepsis, if preferred, will need to go to tertiary care center Acute on chronic anemia -- FOBT done at the ER was negative. Possibly related to transient hematochezia following manual fecal self disimpaction at home from weeks ago as per patient account and cutaneous bruising on exam. -- Iron deficiency -- no signs of overt GI bleed Hg stable around 9-10 Change Protonix to p.o. 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 Disposition Lives alone at home Patient's daughter Mirtha is main supply person, Patient will need to transition to group home facility PT OT eval, case management consulted for discharge planning Admission and Anticipated Discharge Date Admission Date: August 17, 2019 Subjective -Patient seen at bedside, no fever or chills Complains of left hip pain, Very labile mood, gets tearful easily afraid to return home,if her left hip is not fixed worried about fall Review of Systems Review of Systems: All systems reviewed & are unremarkable except as noted in HPI & below Physical Exam Constitutional: WD/WN, vitals as above + ill appearing Eyes: + anicteric sclerae ENMT: external ear and nose normal, oropharynx normal Neck: trachea midline, no thyromegaly Respiratory: Auscultation: no crackles, no rales, no rhonchi and no wheezes Gastrointestinal (Abdomen): Percussion/Palpation: abdomen soft; abdomen nontender Musculoskeletal: Left hip tenderness, generalized weakness Neurologic: PERRL, EOMI, accommodation nl, no face palsy, no dysarthria Psychiatric: A+Ox3, euthymic affect Affect: + anxious affect Results & Data Results & Data ([facility]) Vital Signs (Past 12 Hours) Vital Signs Temp Pulse Pulse Resp BP Pulse Ox 08/21/19 16:00 110 H 08/21/19 15:42 36.3 C L 103 H 22 124/89 98 08/21/19 11:42 36.6 C 103 H 20 157/85 H 98 08/21/19 07:15 36.5 C 96 H 18 130/82 100 08/21/19 07:00 95 H
[2019-08-21] MEDS: OXYCODONE HCL IR 5 MG TAB (IMMEDIATE RELEASE) PO PRN (17:57)
[2019-08-21] MEDS: cefTRIAXone SODIUM 1,000 MG in DEXTROSE 5% 50 ML IV SCH (17:57)
[2019-08-21] MEDS: VENLAFAXINE HCL XR 150 MG CAPXR PO SCH (21:39)
[2019-08-22] MEDS: ACETAMINOPHEN 325 MG TAB PO SCH ×4 (04:28→20:55)
[2019-08-22 07:54] LABS: Hematocrit (blood only) 31.3 % (37-47); Hemoglobin 9.6 g/dL (12.0-16.0); Mean Corpuscular Hemoglobin 25.9 pg (25-34); Mean Corpuscular Hgb Conc 30.7 g/dL (32-36); Mean Corpuscular Volume 84.6 fL (80-100); RDW Coefficient of Variation 18.7 % (11.5-14.5); RDW Standard Deviation 56.9 fL (36.4-46.3); White Blood Count 3.31 K/uL (4.8-10.8)
[2019-08-22 08:11] LABS: Platelet Count 91 K/uL (130-400)
[2019-08-22 08:14] LABS: BUN Creatinine Ratio 27.4 (10-20); Calcium 7.8 mg/dl (8.5-10.1); Est GFR (African American) 120.1; Est GFR (Non-African American) 103.7; Potassium 3.5 mmol/L (3.5-5.1)
[2019-08-22 08:15] LABS: Eosinophils # (auto) 0.06 K/uL (0-0.5); Eosinophils % (auto) 1.8 %; Immature Granulocytes # (auto) 0.04 K/uL (0.00-0.02); Immature Granulocytes % (auto) 1.2 %; Lymphocytes % (auto) 15.1 %; Monocytes # (auto) 0.36 K/uL (0.11-0.59); Monocytes % (auto) 10.9 %; Neutrophils # (auto) 2.35 K/uL (1.4-6.5); RBC Morphology Unremarkable
[2019-08-22] MEDS: PANTOprazole 40 MG in SYRINGE 0 ML IV SCH (08:42)
[2019-08-22] MEDS: methylPREDNISolone 20 MG in SYRINGE 0 ML IV SCH (08:42)
[2019-08-22] MEDS: FONDAPARINUX 2.5 MG/0.5 ML SYR SQ SCH (08:42)
[2019-08-22] MEDS: DOCUSATE SODIUM/SENNA 50/8.6MG TAB PO SCH (08:43)
[2019-08-22] MEDS: FOLIC ACID 1 MG TAB PO SCH (08:43)
[2019-08-22] MEDS: FERROUS SULFATE 325 MG TAB PO SCH ×2 (08:43→16:43)
[2019-08-22] MEDS: FLUTICASONE/VILANTEROL 200/25MCG 14 PUFFS/INHALER INH SCH (08:43)
[2019-08-22] MEDS: SODIUM CHLORIDE 0.9% 1000ML 1,000 ML IV SCH (11:13)
[2019-08-22] MEDS: VANCOMYCIN HCL 1,250 MG in SODIUM CHLORIDE 0.9% 250 ML IV SCH ×2 (12:16→23:49)
--- NOTE | 2019-08-22 13:14 | Hospitalist Progress Note ---
Date of Service August 22, 2019 Assessment & Plan (1) Sepsis: (1) Sepsis: Multifactorial : MRSA Bacteremia LLE cellulitis, Left Hand cellulitis Complicated UTI Immunocompromised patient hx rheumatoid arthritis on chronic steroid Rx, Methotrexate Blood cultures: MRSA/Repeat blood culture ordered on 08/21/2019: No growth today Urine culture: E coli Appreciate input from [employer] infectious disease: Communication from [employer] ID: Consulted for MRSA bacteremia and E. coli UTI. Recommend continuing IV Vancomycin. Recommend switching from Cefepime to Ceftriaxone based on E. coli susceptibilities. Total of 7 days for Ceftriaxone to treat UTI. Vancomycin IV will need to be continued for much longer. Recommend repeating Blood cultures every other day until negative. Recommend TTE to help r/o endovascular infection/source/seeding. MRI showing left hip effusion is concerning, would recommend aspiration at some point and if positive for MRSA or synovial cell count concerns, pt will need I and D by Ortho. We will continue to follow. Antibiotic adjusted, continue IV vancomycin/IV Rocephin for 7 days transthoracic echo ordered We will discussed with orthopedics regarding left hip joint effusion aspiration Worsening left hip/left knee pain, hx rheumatoid arthritis -- Left Hip MRI: 1. End-stage osteoarthritis of the left hip with complete loss of the joint space and severe acetabular protrusio. Lucencies project over the medial acetabulum. Although age indeterminate, these are probably not acute. 2. Large left hip joint effusion with distention of the adjacent bursa. 3. Severe right hip osteoarthritis. 4. Marked splenomegaly, as shown on prior chest CT of November 29, 2016. 5. Mildly enlarged left inguinal lymph nodes which are probably reactive. -Orthopedics consulted severe OA of the left hip, surgery not recommended at this time due to sepsis, if preferred, will need to go to tertiary care center Acute on chronic anemia -No episode of GI bleed Hg stable around 9-10 Change Protonix to p.o. 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 Disposition Lives alone at home High fall risk given advanced DJD, ambulatory dysfunction, functional deconditioning PT OT eval, case management consulted for discharge planning Admission and Anticipated Discharge Date Admission Date: August 17, 2019 Subjective Offers no new complaint, No fever or chills No complaint of chest pain shortness of breath no cough On 3 L oxygen via nasal cannula Review of Systems Review of Systems: As per HPI, all 10 systems reviewed, all other ROS negative Physical Exam Constitutional: WD/WN, vitals as above + ill appearing Eyes: + anicteric sclerae ENMT: external ear and nose normal, oropharynx normal Neck: trachea midline, no thyromegaly Respiratory: Auscultation: no crackles, no rales, no rhonchi and no wheezes Gastrointestinal (Abdomen): Percussion/Palpation: abdomen soft; abdomen nontender Neurologic: PERRL, EOMI, accommodation nl, no face palsy, no dysarthria Psychiatric: A+Ox3, euthymic affect Affect: + anxious affect Results & Data Results & Data ([facility]) Vital Signs (Past 12 Hours) Vital Signs Temp Pulse Pulse Resp BP Pulse Ox 08/22/19 11:21 36.5 C 100 H 20 139/83 94 08/22/19 07:11 36.5 C 100 H 20 144/86 H 99 08/22/19 04:00 36.6 C 102 H 18 130/79 99 08/22/19 03:36 99 H
[2019-08-22] MEDS: cefTRIAXone SODIUM 1,000 MG in DEXTROSE 5% 50 ML IV SCH (18:58)
[2019-08-22] MEDS: VENLAFAXINE HCL XR 150 MG CAPXR PO SCH (20:53)
[2019-08-23] MEDS: ACETAMINOPHEN 325 MG TAB PO SCH ×4 (02:34→20:17)
[2019-08-23] MEDS: FLUTICASONE/VILANTEROL 200/25MCG 14 PUFFS/INHALER INH SCH (08:56)
[2019-08-23] MEDS: FONDAPARINUX 2.5 MG/0.5 ML SYR SQ SCH (08:56)
[2019-08-23 08:57] LABS: Hematocrit (blood only) 35.7 % (37-47); Hemoglobin 10.3 g/dL (12.0-16.0); Mean Corpuscular Hemoglobin 24.9 pg (25-34); Mean Corpuscular Hgb Conc 28.9 g/dL (32-36); Mean Corpuscular Volume 86.4 fL (80-100); Mean Platelet Volume 9.8 fL (7.4-10.4); Platelet Count 122 K/uL (130-400); RDW Standard Deviation 58.7 fL (36.4-46.3); Red Blood Count 4.13 M/uL (4.2-5.4); White Blood Count 4.79 K/uL (4.8-10.8)
[2019-08-23] MEDS: FOLIC ACID 1 MG TAB PO SCH (08:57)
[2019-08-23] MEDS: CHOLECALCIFEROL 1,000 UNITS 25 MCG TAB PO SCH (08:58)
[2019-08-23] MEDS: predniSONE 5 MG TAB PO SCH (08:59)
[2019-08-23] MEDS: FERROUS SULFATE 325 MG TAB PO SCH ×2 (08:59→17:21)
[2019-08-23] MEDS: DOCUSATE SODIUM/SENNA 50/8.6MG TAB PO SCH (09:00)
[2019-08-23] MEDS ORDERED: PANTOprazole 40 MG TAB PO SCH (09:00)
[2019-08-23 09:24] LABS: BUN Creatinine Ratio 29.5 (10-20); Calcium 8.1 mg/dl (8.5-10.1); Creatinine Clr Calc Pharmacy 103.7 ml/min; Est GFR (Non-African American) 100.9; Potassium 3.5 mmol/L (3.5-5.1)
[2019-08-23 09:53] LABS: Basophils # (auto) 0.01 K/uL (0-0.2); Basophils % (auto) 0.2 %; Eosinophils % (auto) 4.2 %; Immature Granulocytes # (auto) 0.07 K/uL (0.00-0.02); Immature Granulocytes % (auto) 1.5 %; Lymphocytes # (auto) 0.98 K/uL (1.2-3.4); Lymphocytes % (auto) 20.5 %; Monocytes # (auto) 0.41 K/uL (0.11-0.59); Monocytes % (auto) 8.6 %; Neutrophils # (auto) 3.12 K/uL (1.4-6.5)
[2019-08-23] MEDS ORDERED: VANCOMYCIN TROUGH ONE (11:30)
[2019-08-23] MEDS: VANCOMYCIN HCL 1,250 MG in SODIUM CHLORIDE 0.9% 250 ML IV SCH (13:06)
--- NOTE | 2019-08-23 14:14 | Pharmacy Report ---
Pharmacy Abx Dose Short Note - Date of Service August 23, 2019 - Assessment & Plan Assessment 63 year old F receiving vancomycin for MRSA bacteremia Day # 7 of antimicrobial therapy. Plan Vancomycin * Trough level came back therapeutic at ~20 mcg/ml (goal closer to 20 mcg/ml for bacteremia) * Appears patient accumulating vancomycin - had collected trough of 08/19 and level ~18 * Will plan to decrease dose slightly to 1000 mg iv q 12 hrs to maintain level ~15-20 * Repeat blood cultures on 08/20 negative thus far - per ID note MRI showing left hip effusion is concerning and recommend aspiration/also recommend TTE * Plan to recollect trough in next 3 days or sooner if renal function changes Pharmacy will continue to follow and will adjust dose/frequency as necessary. Thank you.
--- NOTE | 2019-08-23 15:11 | Hospitalist Progress Note ---
Date of Service August 23, 2019 Assessment & Plan (1) Sepsis: (1) Sepsis: Multifactorial : MRSA Bacteremia LLE cellulitis, Left Hand cellulitis Complicated UTI Immunocompromised patient hx rheumatoid arthritis on chronic steroid Rx, Methotrexate Blood cultures: MRSA/Repeat blood culture ordered on 08/21/2019: No growth Urine culture: E coli Appreciate input from [employer] infectious disease: Communication from [employer] ID: Consulted for MRSA bacteremia and E. coli UTI. Recommend continuing IV Vancomycin. Recommend switching from Cefepime to Ceftriaxone based on E. coli susceptibilities. Total of 7 days for Ceftriaxone to treat UTI. Vancomycin IV will need to be continued for much longer. Recommend repeating Blood cultures every other day until negative. Recommend TTE to help r/o endovascular infection/source/seeding. MRI showing left hip effusion is concerning, would recommend aspiration at some point and if positive for MRSA or synovial cell count concerns, pt will need I and D by Ortho. We will continue to follow. Antibiotic adjusted, continue IV vancomycin/IV Rocephin for 7 days transthoracic echo: Shows EF more than 70%, no evidence of vegetation or endocarditis Discussed with orthopedics, no evidence of septic arthritis, given his advanced DJD, aspirating joint fluids in the setting of MRSA bacteremia can put more chance of joint space infection As patient is clinically improving Will defer left hip joint fluid aspiration, Continue IV antibiotics-IV vancomycin for 10-14 days Worsening left hip/left knee pain, hx rheumatoid arthritis -- Left Hip MRI: 1. End-stage osteoarthritis of the left hip with complete loss of the joint space and severe acetabular protrusio. Lucencies project over the medial acetabulum. Although age indeterminate, these are probably not acute. 2. Large left hip joint effusion with distention of the adjacent bursa. 3. Severe right hip osteoarthritis. 4. Marked splenomegaly, as shown on prior chest CT of November 29, 2016. 5. Mildly enlarged left inguinal lymph nodes which are probably reactive. -Orthopedics consulted severe OA of the left hip, surgery not recommended at this time due to s epsis, if preferred, will need to go to tertiary care center Continue PT OT, recommends acute rehab, referral made to [facility] Acute on chronic anemia - Hg stable around 9-10 Change Protonix to p.o. 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 Disposition Referral made to [facility], patient will be transferred to acute rehab when medically stable Given to patient's daughter present at bedside Admission and Anticipated Discharge Date Admission Date: August 17, 2019 Subjective Patient reports of feeling much better today, in good spirit, daughter visiting Left hip pain improved, No cough, no shortness of breath no fever or chills Review of Systems Review of Systems: All systems reviewed & are unremarkable except as noted in HPI & below Physical Exam Constitutional: WD/WN, vitals as above Eyes: + anicteric sclerae ENMT: external ear and nose normal, oropharynx normal Neck: trachea midline, no thyromegaly Respiratory: Auscultation: no crackles, no rales, no rhonchi and no wheezes Gastrointestinal (Abdomen): Percussion/Palpation: abdomen soft; abdomen nontender Neurologic: PERRL, EOMI, accommodation nl, no face palsy, no dysarthria Psychiatric: A+Ox3, euthymic affect Results & Data Results & Data ([facility]) Vital Signs (Past 12 Hours) Vital Signs Temp Pulse Pulse Resp BP Pulse Ox 08/23/19 11:24 36.5 C 110 H 20 135/82 100 08/23/19 09:01 101 H 08/23/19 07:26 37.0 C 103 H 20 116/69 99 08/23/19 04:31 104 H
[2019-08-23] MEDS: cefTRIAXone SODIUM 1,000 MG in DEXTROSE 5% 50 ML IV SCH (17:25)
[2019-08-23] MEDS: VENLAFAXINE HCL XR 150 MG CAPXR PO SCH (20:17)
[2019-08-23] MEDS ORDERED: PANTOPRAZOLE BOLUS/DRIP 1 EA IV STA (20:42)
[2019-08-23] MEDS ORDERED: PANTOprazole 80 MG in DEXTROSE 5% 100 ML IV STA (20:45)
[2019-08-23 20:52] LABS: Hematocrit (blood only) 34.4 % (37-47)
[2019-08-23] MEDS: PANTOprazole 40 MG in DEXTROSE 5% 100 ML IV SCH ×2 (21:00→21:31)
[2019-08-23] MEDS: D5W AND NSS 1,000 ML IV SCH (21:31)
[2019-08-23] MEDS: OXYCODONE HCL IR 5 MG TAB (IMMEDIATE RELEASE) PO PRN (21:31)
[2019-08-24] MEDS: MoRPHine SULFATE 4 MG/ML 1 ML CARP\\VIAL IV PRN (00:31)
[2019-08-24] MEDS: VANCOMYCIN HCL 1,000 MG in SODIUM CHLORIDE 0.9% 250 ML IV SCH ×2 (00:35→12:48)
[2019-08-24 01:05] LABS: Hematocrit (blood only) 31.1 % (37-47); Hemoglobin 9.2 g/dL (12.0-16.0); Mean Corpuscular Hemoglobin 25.1 pg (25-34); Mean Corpuscular Hgb Conc 29.6 g/dL (32-36); Mean Platelet Volume 9.7 fL (7.4-10.4); Platelet Count 103 K/uL (130-400); RDW Coefficient of Variation 19.2 % (11.5-14.5); RDW Standard Deviation 58.3 fL (36.4-46.3); Red Blood Count 3.66 M/uL (4.2-5.4); White Blood Count 4.98 K/uL (4.8-10.8)
[2019-08-24 01:35] LABS: BUN Creatinine Ratio 31.9 (10-20); Calcium 7.3 mg/dl (8.5-10.1); Creatinine Clr Calc Pharmacy 99.8 ml/min; Est GFR (African American) 115.5; Est GFR (Non-African American) 99.6; Potassium 3.8 mmol/L (3.5-5.1)
[2019-08-24] MEDS: PANTOprazole 40 MG in DEXTROSE 5% 100 ML IV SCH ×3 (02:50→12:48)
[2019-08-24] MEDS: ACETAMINOPHEN 325 MG TAB PO SCH ×4 (03:00→21:44)
[2019-08-24] MEDS: D5W AND NSS 1,000 ML IV SCH (07:20)
[2019-08-24] MEDS: FLUTICASONE/VILANTEROL 200/25MCG 14 PUFFS/INHALER INH SCH (09:03)
[2019-08-24] MEDS: predniSONE 5 MG TAB PO SCH (09:04)
[2019-08-24] MEDS: CHOLECALCIFEROL 1,000 UNITS 25 MCG TAB PO SCH (09:04)
[2019-08-24] MEDS: DOCUSATE SODIUM/SENNA 50/8.6MG TAB PO SCH (09:04)
[2019-08-24] MEDS: FOLIC ACID 1 MG TAB PO SCH (09:04)
[2019-08-24] MEDS: FERROUS SULFATE 325 MG TAB PO SCH ×2 (09:06→16:58)
[2019-08-24] MEDS: methylPREDNISolone 40 MG in SYRINGE 0 ML IV SCH ×2 (14:26→21:44)
--- NOTE | 2019-08-24 14:35 | Gastrointestinal Consultation ---
Date of Consultation August 24, 2019 Assessment & Plan (1) Bright red rectal bleeding: H/H stable. No overt bleeding now. No BM since yesterday suggests her prior blood is stool is likely hemorrhoidal however she needs colonoscopy to be done electively as OP. Recall GI if needed. History of Present Illness Attending Physician: Holly Crump MD 63 years old female patient currently admitted with sepsis, UTI, arthritis, had an episode of BRBPR (large loose bloody stool) yesterday noted by nursing hence GI is consulted. Patient feels fine, denies abdominal pain, nausea or vomiting, no diarrhea or constipation. No BM since yesterday. Never had a colonoscopy. PMHx: Rheumatoid arthritis on chronic steroid Rx, DCIS breast status post radiation and surgery. Allergies Allergy/AdvReac Type Severity Reaction Status Date / Time Sulfa (Sulfonamide Allergy Intermediate USED Verified 08/17/19 01:01 Antibiotics) CELEBREX IN PAST adhesive Allergy Mild RASH Verified 08/17/19 01:01 daptomycin Allergy Unknown RASH Verified 08/17/19 01:01 heparin Allergy Unknown RASH Verified 08/17/19 01:01 Home Medications Home Medications Medication Instructions Recorded Confirmed Type acetaminophen 650 mg PO QID PRN 04/19/18 08/17/19 History albuterol sulfate 2 puff INHALATION Q6H PRN 04/19/18 08/17/19 History amoxicillin 250 mg PO BID 04/19/18 08/17/19 History cholecalciferol (vitamin D3) 5,000 unit PO QAM 04/19/18 08/17/19 History [Vitamin D3] folic acid 2 mg PO QAM 04/19/18 08/17/19 History gabapentin 200 mg PO BID PRN 04/19/18 08/17/19 History methotrexate sodium 4 tab PO WE 04/19/18 08/17/19 History oxycodone 5 mg PO Q6H PRN 04/19/18 08/17/19 History pantoprazole 40 mg PO QAM 04/19/18 08/17/19 History prednisone 5 mg PO QAM 04/19/18 08/17/19 History venlafaxine 2 cap PO HS 04/19/18 08/17/19 History oxycodone 5 mg PO QAM 04/24/18 08/17/19 History Breo Ellipta 1 inh INHALATION QAM 05/14/18 08/17/19 History albuterol sulfate 2.5 mg INHALATION QID PRN 07/07/19 08/17/19 History Patient History Medical History Anxiety Asthma Breast cancer in situ REASON FOR PROCEDURE. Cirrhosis Depression Felty's syndrome GERD (gastroesophageal reflux disease) History of MRSA infection PT HAD +MRSA CULTURE FOLLOWING LEFT TKA, PT REMAINS ON AMOXICILLIN BID. FOLLOWS WITH DR. GOULD IN INFECTIOUS DISEASE. History of pancytopenia HIT (heparin-induced thrombocytopenia) Rheumatoid arthritis Surgical History H/O difficult intubation 07/03/13: Glidescope #3, ETT #6.5 HiLo Oral with Grade 2 view. Smooth IV induction. Atraumatic. Failed 7.0 ETT. H/O right knee surgery Split thickness graft with wound vac application (10/09/13) Liu #3, ETT#7.0 HiLo Oral with Grade 2 View. Atraumatic DL x 1. History of appendectomy History of breast biopsy History of section History of esophagogastroduodenoscopy (EGD) History of incision and drainage I&D right knee Polyexchange Right total knee application wound vac. 07/03/13: Glidescope #3, ETT #6.5 HiLo Oral with Grade 2 view. Smooth IV induction. Atraumatic. Failed 7.0 ETT. History of thoracentesis SEVERAL YEARS AGO History of total knee replacement LEFT Recent surgical procedure on lower extremity Cooper placed in leg S/P lumpectomy of breast Status post right knee replacement x2 Social History Preferred Language: Albanian Communication Ability: Effective Oyster Washer Required: No Beliefs That Will Affect Care: None Current Living Situation: Alone Other Information That Helps Us Care for You: No Feels Safe at Home: Yes Safety Concerns: Feels Safe At This Time Smoking Status: Former smoker Tobacco Type: cigarettes ; Cigarettes Per Day: Smoked 1ppd x 20+ years ; Do You Dip or Chew Tobacco: No ; Second Hand Exposure: No ; Hx Alcohol Use: No Hx Substance Use: No Review of Systems Constitutional: no fever, no chills, no fatigue and no weight loss Eyes: no eye pain and no worsening vision Ear, Nose, Mouth, Throat: no tinnitus, no dizziness, no nasal discharge and no epistaxis Respiratory: no cough, no dyspnea, no dyspnea on exertion and no wheezing Cardiovascular: no chest pain, no orthopnea, no palpitations and no edema Gastrointestinal: as per Subjective / HPI Genitourinary: no dysuria, no urinary frequency, no urinary incontinence and no hematuria Musculoskeletal: no stiffness and no myalgia Neurologic: no localized weakness, no paralysis, no tremor(s) and no headache(s) Endocrine: no polydipsia and no polyuria Hematologic / Lymphatic: no easy bleeding and no night sweats Physical Exam Constitutional: comfortable; no acute distress Eyes: PERRL, conjunctivae normal, anicteric sclerae ENMT: external ear and nose normal, oropharynx normal Neck: normal visual inspection and trachea midline Respiratory: normal respiratory effort, lungs clear to auscultation Auscultation: no wheezes Cardiovascular: RRR, no murmur, no edema Gastrointestinal (Abdomen): normal bowel sounds, soft, nontender, no hepatosplenomegaly Musculoskeletal: no cyanosis or clubbing, extremities motor strength 5/5 Skin: no rashes, warm and dry Neurologic: awake; no focal motor deficits Motor/Sensory: no tremor Results & Data ([facility]) Vital Signs (Past 12 Hours) Vital Signs Temp Pulse Pulse Resp BP Pulse Ox 08/24/19 11:30 36.8 C 99 H 16 98 08/24/19 07:45 36.9 C 97 H 16 105/64 97 08/24/19 07:23 96 H 08/24/19 04:13 108 H Laboratory Results Laboratory Results - last 24 hr 08/23/19 08/23/19 08/24/19 20:25 20:41 00:56 WBC RBC Hgb 10.0 L Hct 34.4 L MCV MCH MCHC RDW Std Deviation RDW Coeff of Cyrus Plt Count MPV Sodium 144 Potassium 3.8 Chloride 112 H Carbon Dioxide 27 Anion Gap 5.0 BUN 17 Creatinine 0.53 L Est Cr Clr Drug Dosing 99.8 Est GFR ( Amer) 115.5 Est GFR (Non-Af Amer) 99.6 BUN/Creatinine Ratio 31.9 H Glucose 129 H Calcium 7.3 L Stool Occult Bld Scrn Positive A 08/24/19 00:56 WBC 4.98 RBC 3.66 L Hgb 9.2 L Hct 31.1 L MCV 85.0 MCH 25.1 MCHC 29.6 L RDW Std Deviation 58.3 H RDW Coeff of Cyrus 19.2 H Plt Count 103 L MPV 9.7 Sodium Potassium Chloride Carbon Dioxide Anion Gap BUN Creatinine Est Cr Clr Drug Dosing Est GFR ( Amer) Est GFR (Non-Af Amer) BUN/Creatinine Ratio Glucose Calcium Stool Occult Bld Scrn
[2019-08-24] MEDS: cefTRIAXone SODIUM 1,000 MG in DEXTROSE 5% 50 ML IV SCH (17:01)
--- NOTE | 2019-08-24 17:28 | Hospitalist Progress Note ---
Date of Service August 24, 2019 Assessment & Plan (1) Sepsis: (1) Sepsis: Multifactorial : MRSA Bacteremia LLE cellulitis, Left Hand cellulitis Complicated UTI Immunocompromised patient hx rheumatoid arthritis on chronic steroid Rx, Methotrexate Blood cultures: MRSA/Repeat blood culture ordered on 08/21/2019: No growth Urine culture: E coli Appreciate input from [employer] infectious disease: Communication from [employer] ID: Consulted for MRSA bacteremia and E. coli UTI. Recommend continuing IV Vancomycin. Recommend switching from Cefepime to Ceftriaxone based on E. coli susceptibilities. Total of 7 days for Ceftriaxone to treat UTI. Vancomycin IV will need to be continued for much longer. Recommend repeating Blood cultures every other day until negative. Recommend TTE to help r/o endovascular infection/source/seeding. MRI showing left hip effusion is concerning, would recommend aspiration at some point and if positive for MRSA or synovial cell count concerns, pt will need I and D by Ortho. We will continue to follow. Antibiotic adjusted, continue IV vancomycin/IV Rocephin for 7 days transthoracic echo: Shows EF more than 70%, no evidence of vegetation or endocarditis Discussed with orthopedics, no evidence of septic arthritis, given his advanced DJD, aspirating joint fluids in the setting of MRSA bacteremia can put more chance of joint space infection As patient is clinically improving Will defer left hip joint fluid aspiration, Continue IV antibiotics-IV vancomycin for 10-14 days Bleeding per rectum: Patient has a episode of bright red blood per rectum yesterday No further episode no complaint nausea vomiting, no abdominal pain vital stable H&H remained stable GI eval requested, appreciate input, possible hemorrhoidal bleed She reports that she does have prior history of hemorrhoids, and also thinks the bleeding came after she was straining for bowel movement No further testing needed, Ordered for diet If needed patient can have outpatient GI evaluation with colonoscopy Worsening left hip/left knee pain, hx rheumatoid arthritis -- Left Hip MRI: 1. End-stage osteoarthritis of the left hip with complete loss of the joint space and severe acetabular protrusio. Lucencies project over the medial acetabulum. Although age indeterminate, these are probably not acute. 2. Large left hip joint effusion with distention of the adjacent bursa. 3. Severe right hip osteoarthritis. 4. Marked splenomegaly, as shown on prior chest CT of November 29, 2016. 5. Mildly enlarged left inguinal lymph nodes which are probably reactive. -Orthopedics consulted severe OA of the left hip, surgery not recommended at this time due to sepsis, if preferred, will need to go to tertiary care center Continue PT OT, recommends acute rehab, referral made to [facility] Acute on chronic anemia - Hg stable around 9-10 Change Protonix to p.o. 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 Disposition Referral made to [facility], patient will be transferred to acute rehab when medically stable Admission and Anticipated Discharge Date Admission Date: August 17, 2019 Review of Systems Review of Systems: As per HPI, all 10 systems reviewed, all other ROS negative Physical Exam Constitutional: WD/WN, vitals as above + ill appearing Eyes: + anicteric sclerae ENMT: external ear and nose normal, oropharynx normal Neck: trachea midline, no thyromegaly Respiratory: Auscultation: no crackles, no rales, no rhonchi and no wheezes Gastrointestinal (Abdomen): Percussion/Palpation: abdomen soft; abdomen nontender Neurologic: PERRL, EOMI, accommodation nl, no face palsy, no dysarthria Psychiatric: A+Ox3, euthymic affect Affect: + anxious affect Results & Data Results & Data ([facility]) Vital Signs (Past 12 Hours) Vital Signs Temp Pulse Pulse Resp BP Pulse Ox 08/24/19 15:18 37.0 C 99 H 16 117/72 98 08/24/19 11:30 36.8 C 99 H 16 98 08/24/19 07:45 36.9 C 97 H 16 105/64 97 08/24/19 07:23 96 H
[2019-08-24] MEDS: VENLAFAXINE HCL XR 150 MG CAPXR PO SCH (21:43)
[2019-08-24] MEDS: LORazepam 0.25 MG/0.5 ML VIAL IV PRN (21:55)
[2019-08-25] MEDS: MoRPHine SULFATE 4 MG/ML 1 ML CARP\\VIAL IV PRN (00:21)
[2019-08-25] MEDS: VANCOMYCIN HCL 1,000 MG in SODIUM CHLORIDE 0.9% 250 ML IV SCH ×3 (00:22→23:46)
[2019-08-25] MEDS: ACETAMINOPHEN 325 MG TAB PO SCH ×4 (02:40→21:08)
[2019-08-25] MEDS: methylPREDNISolone 40 MG in SYRINGE 0 ML IV SCH ×3 (06:35→21:06)
[2019-08-25] MEDS: FLUTICASONE/VILANTEROL 200/25MCG 14 PUFFS/INHALER INH SCH (08:11)
[2019-08-25] MEDS: DOCUSATE SODIUM/SENNA 50/8.6MG TAB PO SCH (08:11)
[2019-08-25] MEDS: FOLIC ACID 1 MG TAB PO SCH (08:12)
[2019-08-25] MEDS: FERROUS SULFATE 325 MG TAB PO SCH ×2 (08:12→17:10)
[2019-08-25] MEDS: CHOLECALCIFEROL 1,000 UNITS 25 MCG TAB PO SCH (08:13)
--- NOTE | 2019-08-25 16:29 | Hospitalist Progress Note ---
Date of Service August 25, 2019 Assessment & Plan (1) Sepsis: (1) Sepsis: MRSA Bacteremia LLE cellulitis, Left Hand cellulitis Complicated UTI Immunocompromised patient Rheumatoid arthritis on chronic steroid Rx, Methotrexate Blood cultures:08/17/19- MRSA Repeat blood culture ordered on 08/21/2019: No growth Urine culture 08/17/19: E coli Appreciate input from [facility] infectious disease: ID recommendations as detailed on EPIC Consulted for MRSA bacteremia and E. coli UTI. Recommended continuing IV Vancomycin, switching from Cefepime to Ceftriaxone based on E. coli susceptibilities. Total of 7 days for Ceftriaxone to treat UTI. Vancomycin IV will need to be continued for much longer. Recommend repeating Blood cultures every other day until negative. Recommend TTE to help r/o endovascular infection/source/seeding. MRI showing left hip effusion is concerning, would recommend aspiration at some point and if positive for MRSA or synovial cell count concerns, pt will need I and D by Ortho. Antibiotic adjusted as recommended TTE - EF more than 70%, no evidence of vegetation or endocarditis Dr Crump had discussed with orthopedics, no evidence of septic arthritis, given his advanced DJD, aspirating joint fluids in the setting of MRSA bacteremia can put more chance of joint space infection As patient is clinically improving, plan was to defer left hip joint fluid aspiration Continue IV antibiotics-IV vancomycin for 10-14 days Bleeding per rectum: Patient has a episode of bright red blood per rectum 2 days ago No further episode no complaint nausea vomiting, no abdominal pain vital stable H&H remained stable GI eval requested, appreciate input, possible hemorrhoidal bleed GI recommended outpatient colonoscopy Worsening left hip/left knee pain, hx rheumatoid arthritis Left Hip MRI: 1. End-stage osteoarthritis of the left hip with complete loss of the joint space and severe acetabular protrusio. Lucencies project over the medial acetabulum. Although age indeterminate, these are probably not acute. 2. Large left hip joint effusion with distention of the adjacent bursa. 3. Severe right hip osteoarthritis. 4. Marked splenomegaly, as shown on prior chest CT of November 29, 2016. 5. Mildly enlarged left inguinal lymph nodes which are probably reactive. Orthopedics recommendations noted Severe OA of the left hip, surgery not recommended at this time due to sepsis, if preferred, will need to go to tertiary care center Continue PT OT, recommends acute rehab, referral made to [facility] on chronic anemia Hg stable around 9-10 Continue po protonix Has not had any BM since reported bloody one. 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 Stated pain is usually worse at night and that gets her anxious and agitated. However, she stated that she is feeling better each day overall Per RN, has not had bowel movement since after last reported blood bowel movement Denied any chest pain, shortness of breath, cough Denied any abd pain, nausea, vomiting Physical Exam Constitutional: + ill appearing (Chronic) and + well hydrated ENMT: external ear and nose normal, oropharynx normal Respiratory: normal respiratory effort, lungs clear to auscultation Cardiovascular: Regular rate and rhythm, S1 S2 Gastrointestinal (Abdomen): normal bowel sounds, soft, nontender, no hepatosplenomegaly Musculoskeletal: Wrist, interphalangeal joint deformities from RA Surgical scars on anterior Right leg Mild tenderness and erythema over anterior left leg Neurologic: PERRL, EOMI, accommodation nl, no face palsy, no dysarthria Psychiatric: A+Ox3, euthymic affect Results & Data Results & Data ([facility]) Vital Signs (Past 12 Hours) Vital Signs Temp Pulse Pulse Resp BP Pulse Ox 08/25/19 15:57 36.8 C 103 H 16 127/77 98 08/25/19 15:10 105 H 08/25/19 12:33 36.9 C 94 H 16 123/76 100 08/25/19 07:28 35.9 C L 94 H 16 145/88 H 99 08/25/19 07:15 99 H
[2019-08-25] MEDS: cefTRIAXone SODIUM 1,000 MG in DEXTROSE 5% 50 ML IV SCH (17:11)
[2019-08-25] MEDS: VENLAFAXINE HCL XR 150 MG CAPXR PO SCH (21:06)
--- NOTE | 2019-08-26 01:04 | Pharmacy Report ---
Pharmacy Abx Dose Short Note - Date of Service August 26, 2019 - Assessment & Plan Assessment 63 year old F receiving vancomycin for treatment of MRSA bacteremia Day # 10/27 of antimicrobial therapy. Plan Vancomycin * Trough level of 14 mcg/mL is subtherapeutic * Change to 1000 mg IV every 10 hours --- 2500 mg/day is too much for patient but 2000 mg/day is not enough. Will provide a slightly higher dose at 2400 mg/day. * Goal trough level for bacteremia : 15 to 20 mcg/mL * Trough ordered for: 08/27/19 prior to 0400 dose Pharmacy will continue to follow and will adjust dose/frequency as necessary. Thank you.
[2019-08-26] MEDS: ACETAMINOPHEN 325 MG TAB PO SCH ×5 (03:27→20:12)
[2019-08-26] MEDS: methylPREDNISolone 40 MG in SYRINGE 0 ML IV SCH ×3 (05:44→21:39)
[2019-08-26] MEDS: DOCUSATE SODIUM/SENNA 50/8.6MG TAB PO SCH (08:11)
[2019-08-26] MEDS: FLUTICASONE/VILANTEROL 200/25MCG 14 PUFFS/INHALER INH SCH (08:12)
[2019-08-26] MEDS: VANCOMYCIN HCL 1,000 MG in SODIUM CHLORIDE 0.9% 250 ML IV SCH ×2 (08:12→17:44)
[2019-08-26] MEDS: FERROUS SULFATE 325 MG TAB PO SCH ×2 (08:12→17:44)
[2019-08-26] MEDS: FOLIC ACID 1 MG TAB PO SCH (08:12)
[2019-08-26] MEDS: CHOLECALCIFEROL 1,000 UNITS 25 MCG TAB PO SCH (08:14)
[2019-08-26 10:22] LABS: Creatinine Clr Calc Pharmacy 112.9 ml/min; Est GFR (African American) 120.1; Est GFR (Non-African American) 103.7
--- NOTE | 2019-08-26 17:59 | Hospitalist Progress Note ---
Date of Service August 26, 2019 Assessment & Plan (1) Sepsis: (1) Sepsis: MRSA Bacteremia LLE cellulitis, Left Hand cellulitis Complicated UTI Immunocompromised patient Rheumatoid arthritis on chronic steroid Rx, Methotrexate Blood cultures:08/17/19- MRSA Repeat blood culture ordered on 08/21/2019: No growth Urine culture 08/17/19: E coli Appreciate input from [facility] infectious disease: E. coli UTI: Completed total 7 days of IV Rocephin treatment Completed 10 days of treatment of IV vancomycin for MRSA bacteremia Repeat blood culture no growth TTE - EF more than 70%, no evidence of vegetation or endocarditis Bleeding per rectum: Secondary to hemorrhoids Patient has a episode of bright red blood per rectum 2 days ago No further episode no complaint nausea vomiting, no abdominal pain vital stable H&H remained stable GI eval requested, appreciate input, possible hemorrhoidal bleed GI recommended outpatient colonoscopy Worsening left hip/left knee pain, hx rheumatoid arthritis Left Hip MRI: 1. End-stage osteoarthritis of the left hip with complete loss of the joint space and severe acetabular protrusio. Lucencies project over the medial acetabulum. Although age indeterminate, these are probably not acute. 2. Large left hip joint effusion with distention of the adjacent bursa. 3. Severe right hip osteoarthritis. 4. Marked splenomegaly, as shown on prior chest CT of November 29, 2016. 5. Mildly enlarged left inguinal lymph nodes which are probably reactive. 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 Continue fondaparinux due to history HIT Full code Disposition Referral made to [facility], Awaiting insurance approval/bed availability Admission and Anticipated Discharge Date Admission Date: August 17, 2019 Subjective Feels much better today, no fever chills Left hip pain not bothering much No cough no shortness of breath no abdominal pain Daughter present at bedside Physical Exam Constitutional: WD/WN, vitals as above + ill appearing Eyes: + anicteric sclerae ENMT: external ear and nose normal, oropharynx normal Neck: trachea midline, no thyromegaly Respiratory: Auscultation: no crackles, no rales, no rhonchi and no wheezes Gastrointestinal (Abdomen): Percussion/Palpation: abdomen soft; abdomen nontender Neurologic: PERRL, EOMI, accommodation nl, no face palsy, no dysarthria Psychiatric: A+Ox3, euthymic affect Affect: + anxious affect Results & Data Results & Data ([facility]) Vital Signs (Past 12 Hours) Vital Signs Temp Pulse Pulse Resp BP Pulse Ox 08/26/19 15:38 36.7 C 101 H 22 140/85 99 08/26/19 11:44 36.9 C 99 H 20 124/74 08/26/19 07:50 36.7 C 100 H 16 135/72 99 08/26/19 07:20 94 H
[2019-08-26] MEDS: VENLAFAXINE HCL XR 150 MG CAPXR PO SCH (20:08)
[2019-08-26] MEDS: LORazepam 0.25 MG/0.5 ML VIAL IV PRN (21:38)
[2019-08-26] MEDS: TRAMADOL HCL 50 MG TABLET PO PRN (23:59)
[2019-08-27] MEDS ORDERED: LORazepam 0.25 MG/0.5 ML VIAL IV STA (00:41)
[2019-08-27] MEDS: ACETAMINOPHEN 325 MG TAB PO SCH ×5 (03:14→22:22)
[2019-08-27] MEDS ORDERED: VANCOMYCIN TROUGH ONE (03:30)
[2019-08-27] MEDS: OXYCODONE HCL IR 5 MG TAB (IMMEDIATE RELEASE) PO PRN (04:34)
[2019-08-27] MEDS: methylPREDNISolone 40 MG in SYRINGE 0 ML IV SCH ×3 (06:09→22:22)
[2019-08-27] MEDS: MoRPHine SULFATE 4 MG/ML 1 ML CARP\\VIAL IV PRN (06:18)
[2019-08-27] MEDS: DOCUSATE SODIUM/SENNA 50/8.6MG TAB PO SCH (08:28)
[2019-08-27] MEDS: FOLIC ACID 1 MG TAB PO SCH (08:28)
[2019-08-27] MEDS: FLUTICASONE/VILANTEROL 200/25MCG 14 PUFFS/INHALER INH SCH (08:29)
[2019-08-27] MEDS: CHOLECALCIFEROL 1,000 UNITS 25 MCG TAB PO SCH (08:29)
[2019-08-27] MEDS: FERROUS SULFATE 325 MG TAB PO SCH ×2 (08:30→18:04)
--- NOTE | 2019-08-27 18:04 | Hospitalist Progress Note ---
Date of Service August 27, 2019 Assessment & Plan (1) Depression: pt has underlying depression and anxiety as per daughter having more anxiety /crying spell thinking about her future -not able to return home due to severe arthritis does not want to move to [place] but does not feel safe to live alone at home /very fearful off fall counselling provided , referral made for skilled rehab post discharge from hospital Psych eval requested to evaluate underlying depression , anxiety disorder and recommendation for SSRI (2) Sepsis: (1) Sepsis: MRSA Bacteremia LLE cellulitis, Left Hand cellulitis Complicated UTI Immunocompromised patient Rheumatoid arthritis on chronic steroid Rx, Methotrexate Blood cultures:08/17/19- MRSA Repeat blood culture ordered on 08/21/2019: No growth Urine culture 08/17/19: E coli Appreciate input from [facility] infectious disease: E. coli UTI: Completed total 7 days of IV Rocephin treatment Completed 10 days of treatment of IV vancomycin for MRSA bacteremia Repeat blood culture no growth TTE - EF more than 70%, no evidence of vegetation or endocarditis Bleeding per rectum: Secondary to hemorrhoids Patient has a episode of bright red blood per rectum 2 days ago No further episode no complaint nausea vomiting, no abdominal pain vital stable H&H remained stable GI eval requested, appreciate input, possible hemorrhoidal bleed GI recommended outpatient colonoscopy Worsening left hip/left knee pain, hx rheumatoid arthritis Left Hip MRI: 1. End-stage osteoarthritis of the left hip with complete loss of the joint space and severe acetabular protrusio. Lucencies project over the medial acetabulum. Although age indeterminate, these are probably not acute. 2. Large left hip joint effusion with distention of the adjacent bursa. 3. Severe right hip osteoarthritis. 4. Marked splenomegaly, as shown on prior chest CT of November 29, 2016. 5. Mildly enlarged left inguinal lymph nodes which are probably reactive. 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 Continue fondaparinux due to history HIT Full code Disposition Referral made to [facility], Awaiting insurance approval/bed availability Admission and Anticipated Discharge Date Admission Date: August 17, 2019 Subjective very labile mood , cries talking about how anxious she is that may not be able to live independently due to her left hip arthritis wants to return home but very fearful of falling no fever or chills no cough or SOB stable vitals Physical Exam Constitutional: WD/WN, vitals as above + ill appearing Eyes: + anicteric sclerae ENMT: external ear and nose normal, oropharynx normal Neck: trachea midline, no thyromegaly Respiratory: Auscultation: no crackles, no rales, no rhonchi and no wheezes Gastrointestinal (Abdomen): Percussion/Palpation: abdomen soft; abdomen nontender Neurologic: PERRL, EOMI, accommodation nl, no face palsy, no dysarthria Psychiatric: A+Ox3, euthymic affect Affect: + anxious affect Results & Data Results & Data ([facility]) Vital Signs (Past 12 Hours) Vital Signs Temp Pulse Pulse Resp BP Pulse Ox 08/27/19 15:50 36.6 C 98 H 22 134/81 99 08/27/19 07:33 36.8 C 101 H 16 126/81 99 08/27/19 07:22 103 H
[2019-08-27] MEDS: VENLAFAXINE HCL XR 150 MG CAPXR PO SCH (22:23)
[2019-08-27] MEDS: HYDROCORTISONE HC 2.5% CRM 30GM TUBE EXT SCH ×2 (22:23→22:24)
[2019-08-27] MEDS: TRAMADOL HCL 50 MG TABLET PO PRN (23:38)
[2019-08-28] MEDS: ACETAMINOPHEN 325 MG TAB PO SCH ×4 (03:23→21:49)
[2019-08-28] MEDS: methylPREDNISolone 40 MG in SYRINGE 0 ML IV SCH ×3 (05:56→21:49)
[2019-08-28] MEDS: DOCUSATE SODIUM/SENNA 50/8.6MG TAB PO SCH (09:08)
[2019-08-28] MEDS: FERROUS SULFATE 325 MG TAB PO SCH ×2 (09:08→17:04)
[2019-08-28] MEDS: FOLIC ACID 1 MG TAB PO SCH (09:08)
[2019-08-28] MEDS: CHOLECALCIFEROL 1,000 UNITS 25 MCG TAB PO SCH (09:08)
[2019-08-28] MEDS: POLYETHYLENE (MIRALAX) 17 GM PACK PO SCH (09:10)
[2019-08-28] MEDS: FLUTICASONE/VILANTEROL 200/25MCG 14 PUFFS/INHALER INH SCH (09:10)
[2019-08-28] MEDS: HYDROCORTISONE HC 2.5% CRM 30GM TUBE EXT SCH ×3 (09:11→21:48)
--- NOTE | 2019-08-28 12:48 | Psychiatric Consultation ---
Date of Consultation August 28, 2019 Impression / Recommendations Impression Dr. Leona Kumar was directly involved in review and discussion of the patient's case and participated in medical decision making regarding treatment recommendations. RECOMMENDATIONS: 08/27 - Psychiatric consultation received to assess patient for depression/anxiety disorder. - Pt has been taking 300mg of venlafaxine each evening. Will attempt to gather collateral information regarding previous medication trials; however, cross-taper to an alternative antidepressant medication is not likely to be acutely needed and can be completed on an outpatient basis when patient's baseline mood/anxiety can be more accurately assessed. Some of her current presentation is likely to be situational, and mood/anxiety may improve as she adjusts to a new living situation. - Did discuss the addition of buspirone in order to target anxiety, as is likely to have a more rapid onset of benefit and can be utilized to bridge any future cross-titrations. Suggest starting at 5mg BID, and can consider titration as tolerated. Risks, benefits, and potential side effects were reviewed. Pt verbalized understanding and is agreeable with this medication adjustment. - Suggest referral for outpatient psychiatric medication management. Pt is unsure if she is interested in psychiatry referral at this time. Will engage daughter in this discussion. Referral options will likely depend on discharge plans. - No indication for inpatient psychiatric hospitalization. - Please reach out to our service with any additional questions or updates. Risk Factors Assessment Do You Have Access To A Gun?: No Psych History Identifying Data 63-year-old female admitted medically on 08/17/2019 with reports of left hip pain. Pt was found to be septic with UTI and LLE cellulitis. Psychiatric consultation was requested by Dr. Crump on 08/27/2019 to assess patient for "depression/anxiety disorder." Chief Complaint "I'm fine...I'm fine." History of Present Illness Sheron "Liliana Liu is a 63-year-old female admitted medically on 08/17/2019 after presenting to the ED with worsening left hip pain. Pt was found to be septic, with UTI and LLE cellulitis. She has a reported history of depression and was last seen on our consult service in 06/2015 for "depression and emotional instability". Psychiatric consultation was requested by Dr. Crump during this hospitalization to assess patient for "depression/anxiety disorder." Pt was cooperative with assessment. She states that she is "fine...I'm fine." But does seem to feel comfortable sharing some of her recent situational stressors. Pt states that she had been having increased knee and hip pain and was finding it more difficult to care for herself. She states that her family has reported increased concern for her living independently, and are encouraging placement consideration at this time. Pt states that she realizes it is not safe for her to return home, but she is sad and anxious about the idea of not returning. Pt states that these conversations have been ongoing for the past month, and that this has contributed to her increased anxiety. Pt varies in her reports regarding mood, occasionally stating she is "fine" but then also stating she has been more depressed with intermittent crying spells. Complicating her presentation is continued grief related to the traumatic of her "fiance" of 19 years, who from an [place] in 11/2017. Pt denies active SI, but does admit to increased episodes of hopelessness in the setting of these situational changes. She states "If I just passed, that would be ok" - but denies active thoughts to harm herself and is able to contract for safety here in the hospital. Pt is a rather limited historian with regard to psychotropic medications, but is aware she has been on venlafaxine for quite some time. She is not sure that it has been particularly helpful, but states "then again, I'm not really sure." Pt is unable to recall if she had tried any other antidepressant medications. Pt is hesitant to accept a referral for outpatient psychiatric services and continues to see her PCP for refills of venlafaxine. Pt is interested in discussing medication adjustments. Pt does request that her daughter be updated with our conversation. She denied other needs or concerns from our service at this time. Past Psychiatric History Outpatient Services: PCP prescribes venlafaxine Previous Psych Admissions: Denied Do You Have Access To A Gun?: No History of Previous Suicide Attempt: No Past Medication Trials: Unknown, patient is a poor historian Allergies Allergy/AdvReac Type Severity Reaction Status Date / Time Sulfa (Sulfonamide Allergy Intermediate USED Verified 08/17/19 01:01 Antibiotics) CELEBREX IN PAST adhesive Allergy Mild RASH Verified 08/17/19 01:01 daptomycin Allergy Unknown RASH Verified 08/17/19 01:01 heparin Allergy Unknown RASH Verified 08/17/19 01:01 Home Medications Home Medications Medication Instructions Recorded Confirmed Type acetaminophen 650 mg PO QID PRN 04/19/18 08/17/19 History albuterol sulfate 2 puff INHALATION Q6H PRN 04/19/18 08/17/19 History amoxicillin 250 mg PO BID 04/19/18 08/17/19 History cholecalciferol (vitamin D3) 5,000 unit PO QAM 04/19/18 08/17/19 History [Vitamin D3] folic acid 2 mg PO QAM 04/19/18 08/17/19 History gabapentin 200 mg PO BID PRN 04/19/18 08/17/19 History methotrexate sodium 4 tab PO WE 04/19/18 08/17/19 History oxycodone 5 mg PO Q6H PRN 04/19/18 08/17/19 History pantoprazole 40 mg PO QAM 04/19/18 08/17/19 History prednisone 5 mg PO QAM 04/19/18 08/17/19 History venlafaxine 2 cap PO HS 04/19/18 08/17/19 History oxycodone 5 mg PO QAM 04/24/18 08/17/19 History Breo Ellipta 1 inh INHALATION QAM 05/14/18 08/17/19 History albuterol sulfate 2.5 mg INHALATION QID PRN 07/07/19 08/17/19 History Family History Pt is not aware of any family history of psychiatric conditions. Substance Abuse History Pt denied tobacco use. Admits to the occasional beer. No reported history of substance abuse. Personal History Living Arrangements: Home (had been living independently in [place] ) Highest Grade Completed: High School Graduate Employment Status: Retired (worked at a day care center) Marital Status: (had most recently lived with a 'fiance' of 19 years ( in 11/2017)) Number Of Children: 1 adult daughter Beliefs That Will Affect Care: Spiritual History of Legal Problems: Denied Psychological Trauma History Comment: Denied Patient History Medical History Anxiety Asthma Breast cancer in situ REASON FOR PROCEDURE. Cirrhosis Depression Felty's syndrome GERD (gastroesophageal reflux disease) History of MRSA infection PT HAD +MRSA CULTURE FOLLOWING LEFT TKA, PT REMAINS ON AMOXICILLIN BID. FOLLOWS WITH DR. GOULD IN INFECTIOUS DISEASE. History of pancytopenia HIT (heparin-induced thrombocytopenia) Rheumatoid arthritis Surgical History H/O difficult intubation 07/03/13: Glidescope #3, ETT #6.5 HiLo Oral with Grade 2 view. Smooth IV induction. Atraumatic. Failed 7.0 ETT. H/O right knee surgery Split thickness graft with wound vac application (10/09/13) Liu #3, ETT#7.0 HiLo Oral with Grade 2 View. Atraumatic DL x 1. History of appendectomy History of breast biopsy History of section History of esophagogastroduodenoscopy (EGD) History of incision and drainage I&D right knee Polyexchange Right total knee application wound vac. 07/03/13: Glidescope #3, ETT #6.5 HiLo Oral with Grade 2 view. Smooth IV induction. Atraumatic. Failed 7.0 ETT. 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 Beliefs That Will Affect Care: None Current Living Situation: Alone Other Information That Helps Us Care for You: No Feels Safe at Home: Yes Safety Concerns: Feels Safe At This Time Smoking Status: Former smoker Tobacco Type: cigarettes ; Cigarettes Per Day: Smoked 1ppd x 20+ years ; Do You Dip or Chew Tobacco: No ; Second Hand Exposure: No ; Hx Alcohol Use: No Hx Substance Use: No Physical Exam Psychiatric: Orientation: alert, oriented x 3 and cooperative (and pleasant) Apperance: appropriately dressed, appropriately groomed and appeared stated age Eye Contact: good eye contact Motor Behavior: no abnormal motor movements Pt does have obvious deformity of hands bilaterally, appears to be able to make appropriate accommodations. Speech: normal rate/rhythm/volume of speech Affect: + tearful affect (episodically) and + blunted affect Mood: + depressed mood and + anxious mood Thought Process: goal directed thought process and clear/coherent thought process Thought Content: reality based without delusions and + hopelessness (occasional, especially in the setting of being moved from her home ) Suicidal Thoughts: denies suicidal thoughts, denies suicidal plan and denies suicidal intent Homicidal Thoughts: denies homicidal thoughts Hallucinations: no auditory hallucinations and no visual hallucinations Cognition: attention grossly intact and language grossly intact Estimated Intelligence: consistent with education level Insight: + fair insight Judgement: + fair judgement Vital Signs (Past 24 Hours): Last Vital Signs Temp 36.7 C 08/28/19 07:49 Pulse 95 H 08/28/19 08:14 Resp 16 08/28/19 07:49 BP 124/76 08/28/19 07:49 Pulse Ox 98 08/28/19 07:49 Review of Systems Constitutional: reports fatigue Cardiovascular: denied Respiratory: denied Gastrointestinal: denied Neurological: denied Musculoskeletal: reports hip and knee pain Psychiatric: denies symptoms other than stated above Total of at least 10 systems reviewed, pertinent positives as above and in HPI. Results & Data (PSY) Medications Administered Acetaminophen (Tylenol) 650 mg PO Q6H NI[facility]IL Stop: 09/17/19 08:59 Last Admin: 08/28/19 09:13 Dose: 650 mg Documented by: [id number] Admin: 08/28/19 03:23 Dose: 650 mg Documented by: [id number] Admin: 08/27/19 22:22 Dose: 650 mg Documented by: [id number] Admin: 08/27/19 14:32 Dose: 650 mg Documented by: [id number] Admin: 08/27/19 08:55 Dose: 650 mg Documented by: [id number] Admin: 08/27/19 03:14 Dose: Not Given Documented by: [id number] Admin: 08/26/19 20:12 Dose: 650 mg Documented by: [id number] Admin: 08/26/19 14:10 Dose: Not Given Documented by: [id number] Admin: 08/26/19 10:36 Dose: 650 mg Documented by: [id number] Admin: 08/26/19 08:13 Dose: Not Given Documented by: [id number] Admin: 08/26/19 03:27 Dose: Not Given Documented by: [id number] Admin: 08/25/19 21:08 Dose: 650 mg Documented by: [id number] Admin: 08/25/19 14:16 Dose: 650 mg Documented by: [id number] Admin: 08/25/19 08:19 Dose: 650 mg Documented by: [id number] Admin: 08/25/19 02:40 Dose: 650 mg Documented by: [id number] Admin: 08/24/19 21:44 Dose: 650 mg Documented by: [id number] Admin: 08/24/19 14:26 Dose: 650 mg Documented by: [id number] Admin: 08/24/19 09:15 Dose: 650 mg Documented by: [id number] Admin: 08/24/19 03:00 Dose: Not Given Documented by: [id number] Admin: 08/23/19 20:17 Dose: 650 mg Documented by: [id number] Admin: 08/23/19 15:31 Dose: 650 mg Documented by: [id number] Admin: 08/23/19 09:01 Dose: 650 mg Documented by: [id number] Admin: 08/23/19 02:34 Dose: 650 mg Documented by: [id number] Admin: 08/22/19 20:55 Dose: 650 mg Documented by: [id number] Admin: 08/22/19 14:45 Dose: 650 mg Documented by: [id number] Admin: 08/22/19 08:43 Dose: 650 mg Documented by: [id number] Admin: 08/22/19 04:28 Dose: 650 mg Documented by: [id number] Admin: 08/21/19 21:38 Dose: 650 mg Documented by: [id number] Admin: 08/21/19 16:00 Dose: 650 mg Documented by: [id number] Admin: 08/21/19 10:12 Dose: 650 mg Documented by: [id number] Admin: 08/21/19 02:07 Dose: 650 mg Documented by: [id number] Admin: 08/20/19 20:56 Dose: 650 mg Documented by: [id number] Admin: 08/20/19 16:24 Dose: 650 mg Documented by: [id number] Admin: 08/20/19 10:31 Dose: 650 mg Documented by: [id number] Admin: 08/20/19 02:08 Dose: 650 mg Documented by: [id number] Admin: 08/19/19 20:16 Dose: 650 mg Documented by: [id number] Admin: 08/19/19 15:30 Dose: 650 mg Documented by: [id number] Admin: 08/19/19 08:32 Dose: 650 mg Documented by: [id number] Admin: 08/19/19 02:15 Dose: Not Given Documented by: [id number] Admin: 08/18/19 20:11 Dose: 650 mg Documented by: [id number] Admin: 08/18/19 14:02 Dose: 650 mg Documented by: [id number] Admin: 08/18/19 09:20 Dose: 650 mg Documented by: [id number] Ferrous Sulfate (Feosol) 325 mg PO BIDM [facility] Stop: 09/18/19 07:59 Last Admin: 08/28/19 09:08 Dose: 325 mg Documented by: [id number] Admin: 08/27/19 18:04 Dose: 325 mg Documented by: [id number] Admin: 08/27/19 08:30 Dose: 325 mg Documented by: [id number] Admin: 08/26/19 17:44 Dose: 325 mg Documented by: [id number] Admin: 08/26/19 08:12 Dose: 325 mg Documented by: [id number] Admin: 08/25/19 17:10 Dose: 325 mg Documented by: [id number] Admin: 08/25/19 08:12 Dose: 325 mg Documented by: [id number] Admin: 08/24/19 16:58 Dose: 325 mg Documented by: [id number] Admin: 08/24/19 09:06 Dose: 325 mg Documented by: [id number] Admin: 08/23/19 17:21 Dose: 325 mg Documented by: [id number] Admin: 08/23/19 08:59 Dose: 325 mg Documented by: [id number] Admin: 08/22/19 16:43 Dose: 325 mg Documented by: [id number] Admin: 08/22/19 08:43 Dose: 325 mg Documented by: [id number] Admin: 08/21/19 17:08 Dose: 325 mg Documented by: [id number] Admin: 08/21/19 09:18 Dose: 325 mg Documented by: [id number] Admin: 08/20/19 16:24 Dose: 325 mg Documented by: [id number] Admin: 08/20/19 10:31 Dose: 325 mg Documented by: [id number] Admin: 08/19/19 18:00 Dose: 325 mg Documented by: [id number] Admin: 08/19/19 08:32 Dose: 325 mg Documented by: [id number] Fluticasone/Vilanterol (Breo Ellipta 200/25 Mcg Inh) 1 puffs INH QAM [facility] Stop: 09/16/19 09:44 Last Admin: 08/28/19 09:10 Dose: 1 puffs Documented by: [id number] Admin: 08/27/19 08:29 Dose: 1 puffs Documented by: [id number] Admin: 08/26/19 08:12 Dose: 1 puffs Documented by: [id number] Admin: 08/25/19 08:11 Dose: 1 puffs Documented by: [id number] Admin: 08/24/19 09:03 Dose: 1 puffs Documented by: [id number] Admin: 08/23/19 08:56 Dose: 1 puffs Documented by: [id number] Admin: 08/22/19 08:43 Dose: 1 puffs Documented by: [id number] Admin: 08/21/19 09:17 Dose: 1 puffs Documented by: [id number] Admin: 08/20/19 08:06 Dose: 1 puffs Documented by: [id number] Admin: 08/19/19 08:29 Dose: 1 puffs Documented by: [id number] Admin: 08/18/19 09:20 Dose: 1 puffs Documented by: [id number] Admin: 08/17/19 11:08 Dose: 1 puffs Documented by: [id number] Folic Acid (Folvite) 2 mg PO QAM NIKHIL Stop: 09/16/19 08:59 Last Admin: 08/28/19 09:08 Dose: 2 mg Documented by: [id number] Admin: 08/27/19 08:28 Dose: 2 mg Documented by: [id number] Admin: 08/26/19 08:12 Dose: 2 mg Documented by: [id number] Admin: 08/25/19 08:12 Dose: 2 mg Documented by: [id number] Admin: 08/24/19 09:04 Dose: 2 mg Documented by: [id number] Admin: 08/23/19 08:57 Dose: 2 mg Documented by: [id number] Admin: 08/22/19 08:43 Dose: 2 mg Documented by: [id number] Admin: 08/21/19 09:16 Dose: 2 mg Documented by: [id number] Admin: 08/20/19 08:07 Dose: 2 mg Documented by: [id number] Admin: 08/19/19 08:32 Dose: 2 mg Documented by: [id number] Admin: 08/18/19 09:21 Dose: 2 mg Documented by: [id number] Admin: 08/17/19 09:23 Dose: Not Given Documented by: [id number] Fondaparinux (Arixtra) 2.5 mg SQ DAILY [facility] Stop: 09/16/19 08:59 Last Admin: 08/23/19 08:56 Dose: 2.5 mg Documented by: [id number] Admin: 08/22/19 08:42 Dose: 2.5 mg Documented by: [id number] Admin: 08/21/19 09:17 Dose: 2.5 mg Documented by: [id number] Admin: 08/20/19 08:09 Dose: 2.5 mg Documented by: [id number] Admin: 08/19/19 08:31 Dose: 2.5 mg Documented by: [id number] Admin: 08/17/19 09:21 Dose: 2.5 mg Documented by: [id number] Hydrocortisone (Proctozone Hc 2.5%) 1 appln EXT TID NIKHIL Stop: 09/26/19 18:09 Last Admin: 08/28/19 09:11 Dose: 1 appln Documented by: [id number] Admin: 08/27/19 22:24 Dose: Not Given Documented by: [id number] Admin: 08/27/19 22:23 Dose: 1 appln Documented by: [id number] Lorazepam (Ativan) 0.25 mg in 0.5 mls @ 0.5 mls/min IV Q4H PRN PRN Reason: Anxiety Stop: 09/16/19 05:51 Last Admin: 08/26/19 21:38 Dose: 0.5 mls/min Documented by: [id number] Admin: 08/24/19 21:55 Dose: 0.5 mls/min Documented by: [id number] Admin: 08/18/19 23:53 Dose: 0.5 mls/min Documented by: [id number] Admin: 08/17/19 23:17 Dose: 0.5 mls/min Documented by: [id number] Admin: 08/17/19 06:35 Dose: 0.5 mls/min Documented by: [id number] Methylprednisolone 40 mg/ (Syringe) 0.64 mls @ 1.5 mls/min IV Q8H NIKHIL Stop: 09/23/19 13:59 Last Admin: 08/28/19 05:56 Dose: 1.5 mls/min Documented by: [id number] Admin: 08/27/19 22:22 Dose: 1.5 mls/min Documented by: [id number] Admin: 08/27/19 14:32 Dose: 1.5 mls/min Documented by: [id number] Admin: 08/27/19 06:09 Dose: 1.5 mls/min Documented by: [id number] Admin: 08/26/19 21:39 Dose: 1.5 mls/min Documented by: [id number] Admin: 08/26/19 13:32 Dose: 1.5 mls/min Documented by: [id number] Admin: 08/26/19 05:44 Dose: 1.5 mls/min Documented by: [id number] Admin: 08/25/19 21:06 Dose: 1.5 mls/min Documented by: [id number] Admin: 08/25/19 14:16 Dose: 1.5 mls/min Documented by: [id number] Admin: 08/25/19 06:35 Dose: 1.5 mls/min Documented by: [id number] Admin: 08/24/19 21:44 Dose: 1.5 mls/min Documented by: [id number] Admin: 08/24/19 14:26 Dose: 1.5 mls/min Documented by: [id number] Miconazole Nitrate (Desenex) 1 appln EXT PRN PRN PRN Reason: Affected Skin Folds Stop: 09/16/19 17:24 Last Admin: 08/17/19 18:24 Dose: 1 appln Documented by: [id number] Morphine Sulfate (Morphine Sulfate) 3 mg IV Q4H PRN PRN Reason: Pain Stop: 09/06/19 23:37 Last Admin: 08/27/19 06:18 Dose: 3 mg Documented by: [id number] Admin: 08/25/19 00:21 Dose: 3 mg Documented by: [id number] Admin: 08/24/19 00:31 Dose: 3 mg Documented by: [id number] Oxycodone HCl (Roxicodone Immediate Rel) 5 mg PO Q6H PRN PRN Reason: Severe Pain 7,8,9,10 Stop: 08/31/19 05:51 Last Admin: 08/27/19 04:34 Dose: 5 mg Documented by: [id number] Admin: 08/23/19 21:31 Dose: 5 mg Documented by: [id number] Admin: 08/21/19 17:57 Dose: 5 mg Documented by: [id number] Admin: 08/20/19 19:21 Dose: 5 mg Documented by: [id number] Admin: 08/20/19 05:24 Dose: 5 mg Documented by: [id number] Admin: 08/19/19 08:33 Dose: 5 mg Documented by: [id number] Admin: 08/18/19 23:52 Dose: 5 mg Documented by: [id number] Pantoprazole Sodium (Protonix) 40 mg PO QAM NI[facility]IL Stop: 09/22/19 08:59 Last Admin: 08/23/19 08:57 Dose: 40 mg Documented by: [id number] Polyethylene Glycol (Miralax Powder Packet) 17 gm PO DAILY [facility] Stop: 09/27/19 08:59 Last Admin: 08/28/19 09:10 Dose: Not Given Documented by: [id number] Senna/Docusate Sodium (Senokot S) 1 tab PO QAM [facility] Stop: 09/16/19 08:59 Last Admin: 08/28/19 09:08 Dose: 1 tab Documented by: [id number] Admin: 08/27/19 08:28 Dose: 1 tab Documented by: [id number] Admin: 08/26/19 08:11 Dose: 1 tab Documented by: [id number] Admin: 08/25/19 08:11 Dose: 1 tab Documented by: [id number] Admin: 08/24/19 09:04 Dose: 1 tab Documented by: [id number] Admin: 08/23/19 09:00 Dose: 1 tab Documented by: [id number] Admin: 08/22/19 08:43 Dose: 1 tab Documented by: [id number] Admin: 08/21/19 09:31 Dose: Not Given Documented by: [id number] Admin: 08/20/19 08:08 Dose: 1 tab Documented by: [id number] Admin: 08/19/19 08:32 Dose: 1 tab Documented by: [id number] Admin: 08/18/19 09:21 Dose: 1 tab Documented by: [id number] Admin: 08/17/19 09:22 Dose: Not Given Documented by: [id number] Tramadol HCl (Ultram) 50 mg PO Q6H PRN PRN Reason: Mild/Moderate Pain 1,2,3,4,5,6 Stop: 09/17/19 19:06 Last Admin: 08/27/19 23:38 Dose: 50 mg Documented by: [id number] Admin: 08/26/19 23:59 Dose: 50 mg Documented by: [id number] Venlafaxine HCl (Effexor Extended Release) 300 mg PO HS [facility]IL Stop: 09/16/19 20:59 Last Admin: 08/27/19 22:23 Dose: 300 mg Documented by: [id number] Admin: 08/26/19 20:08 Dose: 300 mg Documented by: [id number] Admin: 08/25/19 21:06 Dose: 300 mg Documented by: [id number] Admin: 08/24/19 21:43 Dose: 300 mg Documented by: [id number] Admin: 08/23/19 20:17 Dose: 300 mg Documented by: [id number] Admin: 08/22/19 20:53 Dose: 300 mg Documented by: [id number] Admin: 08/21/19 21:39 Dose: 300 mg Documented by: [id number] Admin: 08/20/19 20:56 Dose: 300 mg Documented by: [id number] Admin: 08/19/19 20:16 Dose: 300 mg Documented by: [id number] Admin: 08/18/19 20:11 Dose: 300 mg Documented by: [id number] Admin: 08/17/19 23:26 Dose: 300 mg Documented by: [id number] Vitamin D (Vitamin D3) 5,000 units PO QAM [facility] Stop: 09/22/19 08:59 Last Admin: 08/28/19 09:08 Dose: 5,000 units Documented by: [id number] Admin: 08/27/19 08:29 Dose: 5,000 units Documented by: [id number] Admin: 08/26/19 08:14 Dose: 5,000 units Documented by: [id number] Admin: 08/25/19 08:13 Dose: 5,000 units Documented by: [id number] Admin: 08/24/19 09:04 Dose: 5,000 units Documented by: [id number] Admin: 08/23/19 08:58 Dose: 5,000 units Documented by: [id number] Coding Level of Care Code 24907 [facility] Intl Hosp Care Lvl 3
--- NOTE | 2019-08-28 19:45 | Hospitalist Progress Note ---
Date of Service August 28, 2019 Assessment & Plan (1) Depression: pt has underlying depression and anxiety as per daughter having more anxiety /crying spell thinking about her future -not able to return home due to severe arthritis does not want to move to [facility] but does not feel safe to live alone at home /very fearful off fall counselling provided , referral made for skilled rehab post discharge from hospital Psych eval requested to evaluate underlying depression , anxiety disorder and recommendation for SSRI (2) Sepsis: (1) Sepsis: MRSA Bacteremia LLE cellulitis, Left Hand cellulitis Complicated UTI Immunocompromised patient Rheumatoid arthritis on chronic steroid Rx, Methotrexate Blood cultures:08/17/19- MRSA Repeat blood culture ordered on 08/21/2019: No growth Urine culture 08/17/19: E coli Appreciate input from Rubén infectious disease: E. coli UTI: Completed total 7 days of IV Rocephin treatment Completed 10 days of treatment of IV vancomycin for MRSA bacteremia Repeat blood culture no growth TTE - EF more than 70%, no evidence of vegetation or endocarditis Bleeding per rectum: Secondary to hemorrhoids Patient has a episode of bright red blood per rectum 2 days ago No further episode no complaint nausea vomiting, no abdominal pain vital stable H&H remained stable GI eval requested, appreciate input, possible hemorrhoidal bleed GI recommended outpatient colonoscopy Worsening left hip/left knee pain, hx rheumatoid arthritis Left Hip MRI: 1. End-stage osteoarthritis of the left hip with complete loss of the joint space and severe acetabular protrusio. Lucencies project over the medial acetabulum. Although age indeterminate, these are probably not acute. 2. Large left hip joint effusion with distention of the adjacent bursa. 3. Severe right hip osteoarthritis. 4. Marked splenomegaly, as shown on prior chest CT of November 29, 2016. 5. Mildly enlarged left inguinal lymph nodes which are probably reactive. 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 Continue fondaparinux due to history HIT Full code Disposition Referral made to [facility], Awaiting insurance approval/bed availability Admission and Anticipated Discharge Date Admission Date: August 17, 2019 Subjective Pt was seen and examined Lying in bed with no distress Pt said that she feels weak She said that her mood is better today Denies any chest pain, palpitation and Dizziness Physical Exam Physical Exam: General- No acute distress Head- atraumatic Eyes- PERRL, EOMI, ENT- oropharynx clear Neck- supple, no JVD Lungs- clear to auscultation Heart- regular rhythm; no murmur Abdomen- normal bowel sounds, soft, nontender Extremities- no calf tenderness Neuro- alert, oriented x 3; PERRL, EOMI; no facial palsy; no dysarthria Skin- warm & dry Results & Data Results & Data ([facility]) Vital Signs (Past 12 Hours) Vital Signs Temp Pulse Pulse Resp BP Pulse Ox 08/28/19 19:33 36.7 C 104 H 20 115/73 98 08/28/19 19:28 105 H 08/28/19 15:11 36.8 C 102 H 16 121/72 93 08/28/19 08:14 95 H 08/28/19 07:49 36.7 C 89 16 124/76 98
[2019-08-28] MEDS: VENLAFAXINE HCL XR 150 MG CAPXR PO SCH (21:49)
[2019-08-29] MEDS: ACETAMINOPHEN 325 MG TAB PO SCH ×3 (03:21→13:48)
[2019-08-29] MEDS: methylPREDNISolone 40 MG in SYRINGE 0 ML IV SCH ×2 (05:51→13:48)
[2019-08-29] MEDS: FLUTICASONE/VILANTEROL 200/25MCG 14 PUFFS/INHALER INH SCH (08:34)
[2019-08-29] MEDS: FOLIC ACID 1 MG TAB PO SCH (08:35)
[2019-08-29] MEDS: CHOLECALCIFEROL 1,000 UNITS 25 MCG TAB PO SCH (08:35)
[2019-08-29] MEDS: POLYETHYLENE (MIRALAX) 17 GM PACK PO SCH (08:36)
[2019-08-29] MEDS: DOCUSATE SODIUM/SENNA 50/8.6MG TAB PO SCH (08:37)
[2019-08-29] MEDS: HYDROCORTISONE HC 2.5% CRM 30GM TUBE EXT SCH ×2 (08:37→13:48)
[2019-08-29] MEDS: FERROUS SULFATE 325 MG TAB PO SCH (08:41)
[2019-08-29 09:29] LABS: Creatinine Clr Calc Pharmacy 119.7 ml/min; Est GFR (African American) 122.8; Est GFR (Non-African American) 105.9
[2019-08-29] MEDS: OXYCODONE HCL IR 5 MG TAB (IMMEDIATE RELEASE) PO PRN (15:47)
--- NOTE | 2019-08-31 09:48 | Discharge Summary ---
Date of Service August 29, 2019 Admission HPI Per Admitting Provider History obtained from patient and records. 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 Last confinement March 2016 for healthcare associated pneumonia. Patient was a prison resident at that time. 2 weeks history of left knee pain, intermittent popping without fever and chills. Patient also complaining of left hip pain in the buttock and groin area worse on ambulation. Patient seen by [facility] eligibility representative outpatient. Outpatient x-ray left knee showed intact left total knee arthroplasty. No radiographic evidence of implant complication. Outpatient bilateral hip x-ray showed severe left and moderate to severe right hip osteoarthritis likely secondary to underlying rheumatoid arthritis. Orthopedics referral contemplated by enrollment eligibility representative as per notes. Worsening left hip, left knee discomfort in the last week as per patient. Some swelling noted on the left lower leg. Dysuria noted yesterday without hematuria/fever,/chills. No chest pain, no cough symptoms. No abdominal pain symptoms. Transient rectal bleed from a few weeks ago after she did manual fecal self disimpaction. No unusual shortness of breath. Upon attempting to transfer to a seat at her home last night, patient noted worsening left hip, and left knee pain leading her to lower herself to the ground. No fall. No head trauma. Trouble getting up. Patient called up her daughter who called EMS to check on patient. Patient found at home w/ strong stench of urine as per EMS note. At the ER, patient received Ceftriaxone for sepsis. 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 Bilateral hand deformity contractures NEUROLOGIC : Coherent, no facial asymmetry, no other gross focality Principal Diagnosis Depression Sepsis MRSA Bacteremia LLE cellulitis, Left Hand cellulitis Complicated UTI Rheumatoid arthritis Bleeding per rectum Left hip/left knee pain, Acute on chronic anemia Sinus tachycardia Discharge Exam General- No acute distress Head- atraumatic Eyes- PERRL, EOMI, ENT- oropharynx clear Neck- supple, no JVD Lungs- clear to auscultation Heart- regular rhythm; no murmur Abdomen- normal bowel sounds, soft, nontender Extremities- no calf tenderness Neuro- alert, oriented x 3; PERRL, EOMI; no facial palsy; no dysarthria Skin- warm & dry Discharge Data Allergies Allergy/AdvReac Type Severity Reaction Status Date / Time Sulfa (Sulfonamide Allergy Intermediate USED Verified 08/17/19 01:01 Antibiotics) CELEBREX IN PAST adhesive Allergy Mild RASH Verified 08/17/19 01:01 daptomycin Allergy Unknown RASH Verified 08/17/19 01:01 heparin Allergy Unknown RASH Verified 08/17/19 01:01 Consultations 08/17/19 02:05 ED Decision to Admit Stat 08/17/19 05:52 Consult Case Management - Discharge Planning Routine Consult Orthopedic Surgery Routine 08/18/19 08:57 Consult Orthopedic Surgery Routine 08/19/19 08:11 Consult Infectious Diseases Routine 08/24/19 08:00 Consult Gastroenterology Routine 08/27/19 18:04 Consult Psychiatry Routine Ordered Studies 08/17/19 00:08 CT pelvis wo con Urgent 08/17/19 03:49 US venous doppler LE LT Urgent 08/17/19 11:05 CT angio chest PE protocol Stat US venous doppler LE RT Stat CT pelvis wo con CLINICAL HISTORY: Left hip pain. COMPARISON STUDY: No previous studies for comparison. TECHNIQUE: Axial images of the pelvis and hips were obtained without IV contrast. Sagittal and coronal reconstructions were viewed. Automated exposure control was utilized for the study. A dose lowering technique was utilized adhering to the principles of ALARA. FINDINGS: Severe left hip osteoarthritis is noted with marked joint space narrowing with roah-ox-imkl appearance. There is severe acetabular protrusio. Lucencies projecting over the medial cortex of the acetabulum are noted. These are age indeterminate but probably does not reflect acute fracture. Subchondral cyst within the left femoral head are noted. There is a large left hip joint effusion with distention of the adjacent bursa. There is also severe right hip osteoarthritis. No suspicious osseous lesions are noted. Marked splenomegaly is partially imaged. This was shown on a prior chest CT of April 01, 2016. Prominent left inguinal lymph nodes are probably reactive. Caliber appears visualized small and large bowel are normal. There is made of cecal wall/ascen ding colon wall thickening with submucosal fat deposition. This is probably chronic. IMPRESSION: 1. End-stage osteoarthritis of the left hip with complete loss of the joint space and severe acetabular protrusio. Lucencies project over the medial acetabulum. Although age indeterminate, these are probably not acute. 2. Large left hip joint effusion with distention of the adjacent bursa. 3. Severe right hip osteoarthritis. 4. Marked splenomegaly, as shown on prior chest CT of November 29, 2016. 5. Mildly enlarged left inguinal lymph nodes which are probably reactive. ACT 112: Negative or not required by law. Electronically signed by: Saravanan Ny M.D. 08/17/2019 8:31 AM Dictated: 08/17/19 0820 Transcribed: 08/17/19819 XR chest 1V portable CLINICAL HISTORY: sepsis COMPARISON STUDY: Chest CT 04/01/2016. Chest radiograph April 24, 2018. FINDINGS: Lung volumes are mildly diminished. There is no pneumothorax or pleural effusion. There is no evidence for pulmonary edema. Linear left basilar opacity favors atelectasis or scarring. Cardiomediastinal silhouette is stable. IMPRESSION: No acute cardiopulmonary findings. ACT 112: Negative or not required by law. Electronically signed by: Saravanan Ny M.D. 08/17/2019 8:10 AM Dictated: 08/17/19 0809 Transcribed: 08/17/19 08 US venous doppler LE LT HISTORY: 63 years-old Female LLE swelling acute pain and swelling of the left lower extremity COMPARISON: Left knee radiographs of same day TECHNIQUE: Multiple real-time sonographic images of the left lower extremity deep venous structures were obtained assessing grayscale appearance, color and spectral flow FINDINGS: Normal flow, compressibility, phasicity and augmentation of the left lower extremity deep venous structures. There is mild subcutaneous edema. IMPRESSION: No sonographic evidence of deep venous thrombosis. ACT 112: Negative or not required by law. The above report was generated using voice recognition software. It may contain grammatical, syntax or spelling errors. Electronically signed by: Bryn Oconnor M.D. 08/17/2019 7:58 AM Dictated: 08/17/19 0757 Transcribed: 08/17/19 0757 XR knee LT 3V HISTORY: 63 years-old Female L knee pain acute left-sided knee pain without reported trauma COMPARISON: None TECHNIQUE: 3 views of the left knee FINDINGS: Moderate medial soft tissue swelling. No large joint effusion, acute fracture or dislocation. Exam secondary to positioning. Demineralized appearance of the bones. Total joint arthroplasty and patella resurfacing. No evidence of hardware complication. IMPRESSION: Soft tissue swelling without acute fracture or dislocation. ACT 112: Negative or not required by law. The above report was generated using voice recognition software. It may contain grammatical, syntax or spelling errors. Electronically signed by: Bryn Oconnor M.D. 08/17/2019 8:10 AM Dictated: 08/17/19 0809 Transcribed: 08/17/[address] ANGIOGRAPHY OF THE CHEST, PULMONARY EMBOLUS PROTOCOL CLINICAL HISTORY: Shortness of breath. Chest pain. COMPARISON STUDY: Chest CT 04/01/2016. Chest radiograph performed earlier today. TECHNIQUE: Following IV administration of 119 mL of Optiray-320, helical axial images of the chest were obtained utilizing the pulmonary embolus protocol. Maximal intensity projections and sagittal and coronal reformats were viewed on an independent 3D workstation. IV contrast was administered without complication. Automated exposure control was utilized for the study. A dose lowering technique was utilized adhering to the principles of ALARA. CT DOSE: 404.93 mGy.cm FINDINGS: Positioning on this exam was difficult. No pulmonary emboli are identified although this exam is mildly compromised by respiratory motion. Moderate cardiomegaly is noted. There is no pericardial effusion. No thoracic aortic dissection is noted. No enlarged thoracic lymph nodes are noted. A prominent left supraclavicular lymph node is unchanged. Prominent right cardiophrenic angle lymph nodes are also unchanged since CT of April 01, 2016. There is no pneumothorax. Trace left pleural effusion is noted. There is no consolidation to suggest pneumonia. Subpleural opacities reflect atelectasis. There are no suspicious pulmonary nodules. Several tiny pulmonary nodules are unchanged since prior CT. Note is made of fractures that extend through the inferior endplate of T3 and superior endplate of T4. There is minimal loss of height of T3 with moderate loss of height of T4. Fractures extend through the posterior elements at these levels. Sclerotic margins are noted. These fractures are subacute. There are old right rib fractures. Splenomegaly and gallstones are again noted within visual portions of the upper abdomen. Lateral segment of the liver is enlarged. IMPRESSION: 1. No pulmonary emboli identified although exam mildly compromised by respiratory motion. 2. Subpleural opacities consistent with atelectasis. No consolidation to suggest pneumonia. 3. Fractures of the T3 and T4 vertebra, as described above. Moderate loss of height of T4. Fractures extend through the posterior elements at these levels. These fractures are likely subacute. 4. Stable splenomegaly. 5. Cholelithiasis. ACT 112: Negative or not required by law. Electronically signed by: Saravanan Ny M.D. 08/17/2019 1:12 PM Dictated: 08/17/19 1301 Transcribed: 08/17/19 1301 RIGHT LOWER EXTREMITY VENOUS DOPPLER CLINICAL HISTORY: right leg edema r/o dvt COMPARISON STUDY: Bilateral lower extremity venous Doppler ultrasound April 01, 2016. TECHNIQUE: Sonography of the deep venous system of the right lower extremity was performed. Compression and augmentation were evaluated. FINDINGS: The right common femoral, superficial femoral and popliteal veins were compressible. Augmentation was normal. Flow was shown within the deep calf vessels although this exam was technically difficult. Subcutaneous edema of the right leg was noted. IMPRESSION: Technically difficult exam but no evidence of deep venous thrombus within the right lower extremity. ACT 112: Negative or not required by law. Electronically signed by: Saravanan Ny M.D. 08/17/2019 12:37 PM Dictated: 08/17/19 1237 Transcribed: 08/17/19 1237 Hospital Course (1) Depression: pt has underlying depression and anxiety as per daughter having more anxiety /crying spell thinking about her future -not able to return home due to severe arthritis does not want to move to prison but does not feel safe to live alone at home /very fearful off fall counselling provided , referral made for skilled rehab post discharge from hospital Psych eval requested to evaluate underlying depression , anxiety disorder and recommendation for SSRI (2) Sepsis: (1) Sepsis: MRSA Bacteremia LLE cellulitis, Left Hand cellulitis Complicated UTI Immunocompromised patient Rheumatoid arthritis on chronic steroid Rx, Methotrexate Blood cultures:08/17/19- MRSA Repeat blood culture ordered on 08/21/2019: No growth Urine culture 08/17/19: E coli Appreciate input from Rubén infectious disease: E. coli UTI: Completed total 7 days of IV Rocephin treatment Completed 10 days of treatment of IV vancomycin for MRSA bacteremia Repeat blood culture no growth TTE - EF more than 70%, no evidence of vegetation or endocarditis Bleeding per rectum: Secondary to hemorrhoids Patient has a episode of bright red blood per rectum 2 days ago No further episode no complaint nausea vomiting, no abdominal pain vital stable H&H remained stable GI eval requested, appreciate input, possible hemorrhoidal bleed GI recommended outpatient colonoscopy Worsening left hip/left knee pain, hx rheumatoid arthritis Left Hip MRI: 1. End-stage osteoarthritis of the left hip with complete loss of the joint space and severe acetabular protrusio. Lucencies project over the medial acetabulum. Although age indeterminate, these are probably not acute. 2. Large left hip joint effusion with distention of the adjacent bursa. 3. Severe right hip osteoarthritis. 4. Marked splenomegaly, as shown on prior chest CT of November 29, 2016. 5. Mildly enlarged left inguinal lymph nodes which are probably reactive. 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 Continue fondaparinux due to history HIT Full code Disposition Referral made to [facility], Awaiting insurance approval/bed availability Total Time Total Time Spent Total Time Spent (In Minutes): 35 minutes Total Time Includes: Examination of the Patient, Discharge Planning, Medication Reconciliation, Communication With Other Providers and Other Discharge Plan Discharge Items Patient Disposition: Transfer Long-Term Fac Reason For Visit: SEPSIS Discharge Diagnosis: Depression Sepsis MRSA Bacteremia LLE cellulitis, Left Hand cellulitis Complicated UTI Rheumatoid arthritis Bleeding per rectum Left hip/left knee pain, Acute on chronic anemia Sinus tachycardia Condition on Discharge: Good Activity: Resume your previous activity Non-emergency contact: Primary Care Provider Call non-emergency contact if: you have any medication questions and your pain is worsening Follow-up/Referrals: Ramesh Aburto MD [Primary Care Provider] - Diet: Heart Healthy Addtl Attending Provider Instructions: Follow up with your primary care provider once discharge from rehab Continue physical and occupational therapy Follow up with psychiatry as an outpatient Follow up with gastroenterology to arrange for colonoscopy (your physician will place the referral) Please titrate Buspar if needed for the anxiety Consider to add a very low dose of Ativan as needed if no improvement in her anxiety as per Psych team. Fall precaution Please hold next dose of narcotic if you become drowsy and lethargy Do not drive or operate any machine after taking narcotic Pending Studies at Discharge: No Stand-Alone Forms: My [facility] Skilled Items Patient informed of condition?: Yes DNR: No Discharge Level of Care: Skilled Communicable Disease: No Discharge Prognosis: Stable Lines: None Urinary Catheter: No Medications and DC Order Prescriptions: New buspirone 5 mg Tablet 5 mg PO BID 30 Days Qty: 60 RF: 0 ferrous sulfate 325 mg (65 mg iron) Tablet,Delayed Release (Dr/Ec) 325 mg PO BIDM 30 Days Qty: 60 RF: 0 polyethylene glycol 3350 [Miralax] 17 gram Powder In Packet 17 g PO DAILY 30 Days Qty: 30 RF: 0 sennosides-docusate sodium [Senokot-S] 8.6-50 mg Tablet 1 tab PO QAM 30 Days Qty: 30 RF: 0 hydrocortisone [Proctosol HC] 2.5 % Cream With Perineal Applicator 1 applic EXT TID PRN (Reason: hemorrhoids) Qty: 28 RF: 0 Continued folic acid 1 mg Tablet 2 mg PO QAM RF: 0 gabapentin 100 mg Capsule 200 mg PO BID PRN (Reason: PRN) RF: 0 acetaminophen 325 mg Capsule 650 mg PO QID PRN (Reason: Pain) RF: 0 prednisone 5 mg Tablet 5 mg PO QAM RF: 0 venlafaxine 150 mg Capsule,Extended Release 24hr 2 cap PO HS RF: 0 methotrexate sodium 2.5 mg Tablet 4 tab PO WE RF: 0 pantoprazole 40 mg Tablet,Delayed Release (Dr/Ec) 40 mg PO QAM RF: 0 amoxicillin 250 mg Capsule 250 mg PO BID RF: 0 albuterol sulfate 90 mcg/actuation Hfa Aerosol Inhaler 2 puff INHALATION Q6H PRN (Reason: Wheezing) RF: 0 cholecalciferol (vitamin D3) [Vitamin D3] 1,000 unit Capsule 5,000 unit PO QAM RF: 0 oxycodone 5 mg Capsule 5 mg PO QAM RF: 0 Breo Ellipta 200-25 mcg/dose Blister With Device 1 inh INHALATION QAM RF: 0 albuterol sulfate 2.5 mg /3 mL (0.083 %) Solution For Nebulization 2.5 mg INHALATION QID PRN (Reason: Shortness Of Breath Or Wheezing) RF: 0 oxycodone 5 mg Capsule 5 mg PO Q6H PRN (Reason: Pain) Qty: 10 RF: 0 Discharge Orders: Discharge Order (Routine); Ordered 08/29/19 Ordered By: Luther Sampson Admission Data Admit Date/Time: 08/17/19 03:55 Attending Provider: Luther Sampson Admit Provider: Jaswant Linares Primary Care Provider: Ramesh Aburto Other Providers: Jaswant Linares ; Denny Kearns ; Jarek Villafana ; Maurice Barr ; Piper Lakhani Thomas J ; Becky Díaz ; Wilfrido Pritchett ; Indra Dixon ; Aditya Wells ; Inrda Grossman Andrew J. ; Aditya Alford ; Goyo Carrera ; Darion Garcia ; Lul Clifford ; Karson Andino ; Jules Thapa ; Becky Sena ; Yann Jackson ; Ryan Figueredo ; Hilary Nogueira ; Kameron Gracia ; Brooklyn Gleason ; Scott De Paz ; Amita Boateng ; Ramon Carr I. ; Rodolfo Ng II ; Anjana Devine ; Indra Garay ; Julio Neumann ; Kyle Rangel ; Marian Sanchez ; Addi Low ; Sheri Rogers ; Daniel Hernandez ; Juan A Galeano ; Hernan Montgomery ; Linh Elizabeth ; Nelson Winter ; Poncho Anderson ; Flores Garcia ; Susanne Valladares ; Clover Mariscal ; Marly Savage ; Ventura Thompson ; Radha Ritter ; Leona Kumar ; Holly Crump. Other Interventions: Discharge Summary Assessment (RN) Last Done: 08/29/19 14:23 DC Date/Time DO NOT enter until pt leaves facility: 08/29/19 16:01
== END 2019-08-29 16:01 | DRG 872 ==
LOC: ED 00:01 → 2W 03:55 → SUATTDRO 03:55 → 2W 04:29